=== PATIENT | female | born 2000 | race Caucasian/White ===

== ENCOUNTER 2019-01-21 20:25 | Emergency (ER) | payer OTHER ==
[2019-01-21 21:24] LABS: Absolute Lymphocytes (CBC) 1.5 K/uL (0.7-4.9); Absolute Monocytes 0.4 K/uL (0.1-1.3); Absolute Neutrophil 4.2 K/uL (1.8-8.0); Basophils % 0.5 % (0-1.3); Eosinophils % 0.4 % (0-4.4); Hematocrit 34.3 % (36.0-45.0); Monocytes % 6.7 % (3.3-12.3); RBC Red Blood Cell Count 4.23 M/uL (3.86-4.86)
[2019-01-21] MEDS ORDERED: KETOROLAC 30 MG/ML INJ ONE (22:03)
[2019-01-21 22:20] LABS: BUN Blood Urea Nitrogen 19 mg/dL (7-18); Bicarbonate 27 mmol/L (21-32); Glucose Level 84 mg/dL (74-106); Sodium Level 143 mmol/L (136-145)
[2019-01-21 23:55] LABS: Urine Specific Gravity 1.015 (1.005-1.030)
[2019-01-21 23:55] LABS: Urine Blood NEGATIVE (NEG); Urine Glucose NEGATIVE (NEG); Urine Protein NEGATIVE (NEG); Urine Specific Gravity 1.015 (1.005-1.030)
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
== END 2019-01-22 00:34 | disposition home or self-care (01) ==
LOC: ER 20:25
DX: S10.93XA Contusion of unspecified part of neck, initial encounter (principal); S20.229A Contusion of unspecified back wall of thorax, initial encounter; S80.12XA Contusion of left lower leg, initial encounter; S80.11XA Contusion of right lower leg, initial encounter; V86.69XA Passenger of other special all-terrain or other off-road motor vehicle injured in nontraffic accident, initial encounter
CPT/HCPCS: 36415; 70450; 71260; 72125; 74177; 80048; 81003; 81025; 84703; 85025; 96374; 99284; Q9967

== ENCOUNTER 2022-03-06 17:47 | Emergency (ER) | payer OTHER ==
--- OUTSIDE RECORDS SUMMARY | 2022-03-06 17:50 | XMS REPORT | Continuity of Care Document ---
:2000 Author Organization [facility] t Address [address] [place] [address] Care Team Providers Name Role Phone DU Primary Care Physician Unavailable Du TRANSPORT RN Attending Clinician Payers Payer Name Policy Type Policy Number Effective Date Expiration Date S ource Problems Condition Condition Condition Status Onset Resolution Last Treating Co mments Source Name Details Category Date Date Treatment Clinician Date Low HDL Low HDL Disease Active Univers (under 40) (under 40) 7-04 it y of 00:00: [place] [id number] [facility] [place] Migraines Migraines Disease Active Uni vers 4- ity of 00:00: [place] [facility] [place] Seasonal Seasonal Disease Active Unive rs allergies allergies 02-14 ity of 00:00: [place] [facility] Anxiety Anxiety Disease Active Univers 4-09 ity of 00:00: [place] [facility] Learning Learning Disease Active Unive rs disability disability 02-14 it y of 00:00: [place] [facility] Uses Uses Disease Active Univers Depo-Prove Depo-Prove 01-06 it y of ra as ra as 00:00: [place] primary primary 00 Medical Branch control control method method Allergies, Adverse Reactions, Alerts This patient has no known allergies or adverse reactions. Social History Social Habit Start Date Stop Date Quantity Comments Source Exposure to Not sure University of SARS-CoV-2 [place] [facility] (event) Branch Tobacco use and 2022-02-20 2022-02-20 Former user Universi ty of exposure 00:00:00 00:00:00 [facility] Alcohol intake 2022-02-20 2022-02-20 Ex-drinker [facility] 00:00:00 00:00:00 (finding) [facility] Sex Assigned At [birth year] Universit y of 00:00:00 00:00:00 [facility] Smoking Status Start Date Stop Date Source Former smoker 2022-02-20 00:00:00 2022-02-20 00:00:00 Universi ty of [facility] Medications Ordered Filled Start Stop Current Ordering Indication Dosage Frequency Signature Comments Components Source Medication Medication Date Date Medication? Clinician (SIG) Name Name SERTraline Yes [id number] 100mg Take 1 Univers (ZOLOFT) 4-15 tablet by ity of 100 mg 00:00: mouth [place] tablet 00 daily. Medical Branch hydrOXYzine Yes [id number] 50mg Take 1 Univers 50 mg 4-15 tablet by ity of tablet 00:00: mouth 3 [place] 00 (three) Medical times [place] daily as needed for Anxiety. SUMAtriptan Yes [id number] Take 1 tab Univers 25 mg 4-09 po x 1 ity of tablet 00:00: dose PRN [place] 00 migraine, Medical may take Branch another dose x 1 two hours later if needed; max 2 doses/24 hours docusate Yes [id number] 240mg Take 1 Univers calcium 240 2-07 102 capsule by it y of mg capsule 00:00: mouth once [place] 00 daily as Medical needed for Branch Constipati on. ferrous Yes [id number] 325mg Take 1 Univers sulfate 325 2-07 102 tablet by ity of mg (65 mg 00:00: mouth 2 [place] iron) 00 (two) Medical tablet times [place] daily. Immunizations Ordered Filled Immunization Date Status Comments Sourc e Immunization Name Name TDAP 2020-10-09 Completed University of 00:00:00 [facility] Influenza Virus 2020-08-12 Completed Universit y of Vaccine Quad .5 mL 00:00:00 [facility] IM 6+ MO Branch Influenza Virus 2019-09-13 Completed Universit y of Vaccine [place] .5 mL 00:00:00 [facility] 6+ [place] Branch Vital Signs Vital Name Observation Time Observation Value Comments Source Systolic blood 2022-02-20 19:03:00 118 mm[Hg] Univer sity of pressure [facility] Diastolic blood 2022-02-20 19:03:00 74 mm[Hg] Unive rsity of pressure [facility] Heart rate 2022-02-20 19:03:00 66 /min Universi [facility] Respiratory rate 2022-02-20 19:03:00 18 /min Univ ersity of [facility] Body height 2022-02-20 19:03:00 152.4 cm [facility] Body weight 2022-02-20 19:03:00 68.765 kg [facility] BMI 2022-02-20 19:03:00 29.61 kg/m2 [facility] Oxygen saturation in 2022-02-20 19:03:00 100 /min [facility] Arterial blood by [facility] Pulse oximetry Branch Procedures This patient has no known procedures. Encounters Start End Encounter Admission Attending Care Care Encounter Source Date/Time Date/Time Type Type Clinicians Facility Department ID 2022-02-20 2022-02-20 Office Du [facility] [id number] Univers 14:00:00 14:42:25 Visit [id number] [id number] Mansi CALDERA [id number] Ak dical NAL 044 Branch BUILDING Results This patient has no known results.
[2022-03-06] MEDS ORDERED: NA CHLORIDE 0.9% 1,000 ML ONE (18:26)
[2022-03-06] MEDS ORDERED: ONDANSETRON 4 MG/2 ML VIAL ONE (18:26)
[2022-03-06 18:27] LABS: Urine Blood Negative (Negative); Urine Glucose Negative (Negative); Urine Protein Negative (Negative); Urine Specific Gravity >=1.030 (1.005-1.030)
[2022-03-06 18:51] LABS: Absolute Lymphocytes (CBC) 1.8 K/uL (0.7-4.9); Hematocrit 41.3 % (36.0-45.0); Lymphocytes % 39.5 % (15.3-44.8); MPV 8.2 fL (7.6-11.3); RBC Red Blood Cell Count 4.69 M/uL (3.86-4.86)
[2022-03-06 19:03] LABS: Albumin 4.4 g/dL (3.4-5.0); Potassium 3.5 mmol/L (3.5-5.1); Protein, Total 7.5 g/dL (6.4-8.2)
[2022-03-06 19:13] LABS: Urine Bacteria 20-50 /HPF (<20); Urine Mucus LIGHT /HPF (NONE SEEN); Urine RBC <5 /HPF (NONE SEEN)
--- NOTE | 2022-03-06 20:02 | RAD REPORT ---
EXAM DESCRIPTION: CT - Abdomen Pelvis W Contrast - 03/06/2022 7:42 pm CLINICAL HISTORY: Abdominal pain COMPARISON: 2019 TECHNIQUE: Computed axial tomography of the abdomen pelvis was obtained. 100 cc Isovue-300 was admin istered intravenously. Oral contrast was not requested which limits evaluation of bowel and appendix. All CT scans are performed using dose optimization technique as appropriate and may include automated exposure control or mA/KV adjustment according to patient size. FINDINGS: Liver, spleen, pancreas, adrenals and right kidney are unremarkable. Partial duplication left kidney. There is no evidence of diverticulitis. No adnexal mass Normal appendix IMPRESSION: No acute abnormality is displayed.
--- NOTE | 2022-03-06 20:29 | EDPHYS ---
Physician Documentation [facility] Name: Lucy Charles Age: 21 yrs Sex: Female : 2000 Arrival Date: 03/06/2022 Time: 17:48 Bed 9 Private MD: ED Physician Steven Georges HPI: 03/06 18:15 This 21 yrs old Female presents to ER via Ambulatory with complaints of Constipation. cp 18:15 The patient presents with abdominal pain constipation. cp 18:15 Onset: The symptoms/episode began/occurred for months. Associated signs and symptoms: cp Pertinent negatives: anorexia, diarrhea, dysuria, fever. Patient reports constipation for months with small and hard BM yesterday. Historical: - Allergies: 17:56 No Known Allergies; iw - Home Meds: 17:56 None [Active]; iw - PMHx: 17:56 None; iw - PSHx: 17:56 None; iw - Immunization history:: Client reports having NOT received the Covid vaccine. - Social history:: Smoking status: Reported history of juuling and/or vaping. ROS: 18:20 Constitutional: Negative for body aches, chills, fever, poor PO intake. cp 18:20 Eyes: Negative for injury, pain, redness, and discharge. cp 18:20 ENT: Negative for drainage from ear(s), ear pain, sore throat, difficulty swallowing, difficulty handling secretions. 18:20 Cardiovascular: Negative for chest pain, edema, palpitations. 18:20 Respiratory: Negative for cough, shortness of breath, wheezing. 18:20 Abdomen/GI: Positive for abdominal pain, constipation, Negative for vomiting, diarrhea, anorexia, black/tarry stool, rectal bleeding. 18:20 Back: Negative for radiated pain. 18:20 : Negative for urinary symptoms. 18:20 Neuro: Negative for altered mental status, headache, weakness. 18:20 All other systems are negative. Exam: 18:25 Constitutional: The patient appears in no acute distress, alert, awake, non-toxic, well cp developed, well nourished. 18:25 Head/Face: Normocephalic, atraumatic. cp 18:25 Eyes: Periorbital structures: appear normal, Conjunctiva: normal, no exudate, no injection, Sclera: no appreciated abnormality, Lids and lashes: appear normal, bilaterally. 18:25 ENT: External ear(s): are unremarkable, Nose: is normal, Mouth: Lips: moist, Oral mucosa: moist, Posterior pharynx: Airway: no evidence of obstruction, patent. 18:25 Chest/axilla: Inspection: normal. 18:25 Cardiovascular: Rate: normal, Rhythm: regular. 18:25 Respiratory: the patient does not display signs of respiratory distress, Respirations: normal, no use of accessory muscles, no retractions, labored breathing, is not present, Breath sounds: are clear throughout, no decreased breath sounds, no stridor, no wheezing. 18:25 Abdomen/GI: Inspection: abdomen appears normal, Bowel sounds: active, all quadrants, Palpation: soft, in all quadrants, mild abdominal tenderness, in the right lower quadrant and left lower quadrant, rebound tenderness, is not appreciated, involuntary guarding, is not appreciated. 18:25 Back: CVA tenderness, is absent. Vital Signs: 18:50 BP 111 / 76; Pulse 52; Resp 16; Temp 98.0; Pulse Ox 99% on R/A; iw 19:15 BP 115 / 68; Pulse 62; Resp 18 S; Pulse Ox 100% on R/A; Pain 4/10; ag7 MDM: 18:17 Patient medically screened. cp 19:00 Differential diagnosis: appendicitis, bowel obstruction, cholecystitis, Cholelithiasis, cp diverticulitis, non-specific abd pain, pancreatitis, Pyelonephritis, urinary tract infection. 20:28 Data reviewed: vital signs, nurses notes, lab test result(s), radiologic studies, CT cp scan. 20:28 Counseling: I had a detailed discussion with the patient and/or guardian regarding: the cp historical points, exam findings, and any diagnostic results supporting the discharge/admit diagnosis, lab results, radiology results, to return to the emergency department if symptoms worsen or persist or if there are any questions or concerns that arise at home. Special discussion: Based on the patient's Hx, exam, and Dx evaluation, there is no indication for emergent surgery or inpatient Tx. It is understood by the patient/guardian that if the Sx's persist or worsen they need to return immediately for re-evaluation. 03/06 18:03 Order name: CBC with Diff; Complete Time: 19:19 cp 03/06 19:20 Interpretation: Normal except: MCV 87.9; MCH 29.9. cp 03/06 18:03 Order name: CMP; Complete Time: 19:19 cp 03/06 20:14 Interpretation: Normal except: CL 112; GFR 85; AST 11. cp 03/06 18:03 Order name: Lipase; Complete Time: 19:19 cp 03/06 18:03 Order name: Urine Microscopic Only; Complete Time: 19:19 cp 03/06 20:14 Interpretation: Normal except: UBACT 20-50; SQEPI 20-50. cp 03/06 18:27 Order name: Urine Dipstick-Ancillary; Complete Time: 19:19 EDMS 03/06 18:03 Order name: IV Saline Lock; Complete Time: 18:36 cp 03/06 18:03 Order name: Labs collected and sent; Complete Time: 18:36 cp 03/06 18:03 Order name: Urine Dipstick-Ancillary (obtain specimen); Complete Time: 18:27 cp 03/06 18:03 Order name: Urine Test (obtain specimen); Complete Time: 18:27 cp 03/06 18:03 Order name: CT Abd/Pelvis - IV Contrast Only; Complete Time: 20:13 cp 03/06 20:13 Interpretation: Report reviewed. 03/06 18:34 Order name: Urine --Ancillary (enter results); Complete Time: 19:19 eb Administered Medications: 18:36 Drug: NS 0.9% 1000 ml Route: IV; Rate: 1 bolus; Site: right antecubital; jl7 19:30 Follow up: IV Status: Completed infusion; IV Intake: 1000ml ag7 18:37 Drug: Zofran (Ondansetron) 4 mg Route: IVP; Site: right antecubital; jl7 19:15 Follow up: Response: No adverse reaction; Nausea is decreased ag7 Disposition: 03/07 15:44 Co-signature as Attending Physician, Steven Georges MD I agree with the assessment and kdr plan of care. Disposition Summary: 03/06/22 20:28 Discharge Ordered Location: Home cp Problem: new cp Symptoms: are unchanged cp Condition: Stable cp Diagnosis - Constipation cp Followup: cp - With: Private Physician - When: 2 - 3 days - Reason: Worsening of condition Discharge Instructions: - Discharge Summary Sheet cp - Constipation, Adult cp Forms: - Medication Reconciliation Form cp - Thank You Letter cp - Antibiotic Education cp - Prescription Opioid Use cp Prescriptions: - magnesium citrate - take 1 bottle by ORAL route as directed; 1 bottle; Refills: 0, Product cp Selection Permitted Signatures: Dispatcher [employer] Steven Jameson MD MD kdr Adela Cruz RN RN iw Nicolás Cobos PA PA cp Rikki Peacock RN RN jl7 Jane Dennis RN ag7 Corrections: (The following items were deleted from the chart) 03/06 20:14 19:20 Normal except: CL 112; GFR 85. cp cp 20:29 20:28 Abdominal pain, Generalized cp cp
--- NOTE | 2022-03-06 20:29 | ER ---
Nurse's Notes [facility] Name: Lucy Charles Age: 21 yrs Sex: Female : 2000 Arrival Date: 03/06/2022 Time: 17:48 Bed 9 Private MD: Diagnosis: Constipation Presentation: 03/06 17:54 Chief complaint: Patient states: thinks she is impacted , had two enemas today and iw laxative gummies, last BM was a "while ago". Coronavirus screen: At this time, the client does not indicate any symptoms associated with coronavirus-19. Ebola Screen: Patient negative for fever greater than or equal to 101.5 degrees Fahrenheit, and additional compatible Ebola Virus Disease symptoms Patient denies exposure to infectious person. Patient denies travel to an Ebola-affected area in the 21 days before illness onset. No symptoms or risks identified at this time. Initial Sepsis Screen: Does the patient meet any 2 criteria? No. Patient's initial sepsis screen is negative. Does the patient have a suspected source of infection? No. Patient's initial sepsis screen is negative. Risk Assessment: Do you want to hurt yourself or someone else? Patient reports no desire to harm self or others. Onset of symptoms was March 06, 2022. 17:54 Method Of Arrival: Ambulatory iw 17:54 Acuity: KERRI 3 iw Historical: - Allergies: 17:56 No Known Allergies; iw - Home Meds: 17:56 None [Active]; iw - PMHx: 17:56 None; iw - PSHx: 17:56 None; iw - Immunization history:: Client reports having NOT received the Covid vaccine. - Social history:: Smoking status: Reported history of juuling and/or vaping. Screenin:38 Abuse screen: Denies threats or abuse. Denies injuries from another. Nutritional iw screening: No deficits noted. Tuberculosis screening: No symptoms or risk factors identified. Fall Risk IV access (20 points). Assessment: 18:38 General: Appears in no apparent distress. Behavior is calm, cooperative. Pain: iw Complains of pain in abdomen. Neuro: Level of Consciousness is awake, alert, obeys commands, Oriented to person, place, time, situation, Moves all extremities. Full function. Cardiovascular: Patient's skin is warm and dry. Respiratory: Respiratory effort is even, unlabored, Respiratory pattern is regular, symmetrical. GI: Reports constipation. Derm: Skin is intact, is healthy with good turgor. 19:14 Reassessment: Patient and/or family updated on plan of care and expected duration. Pain ag7 level reassessed. Patient is alert, oriented x 3, equal unlabored respirations, skin warm/dry/pink. Shift report received, Patient verbalize c/o of abdominal pain 4/10, constant, and nausea, bowel sounds hypoactive ascending, transverse, and descending. 20:15 Reassessment: No changes from previously documented assessment. Patient and/or family ag7 updated on plan of care and expected duration. Pain level reassessed. Patient is alert, oriented x 3, equal unlabored respirations, skin warm/dry/pink. Vital Signs: 18:50 BP 111 / 76; Pulse 52; Resp 16; Temp 98.0; Pulse Ox 99% on R/A; iw 19:15 BP 115 / 68; Pulse 62; Resp 18 S; Pulse Ox 100% on R/A; Pain 4/10; ag7 ED Course: 17:48 Patient arrived in ED. am2 17:49 Nicolás Cobos PA is PHCP. cp 17:49 Steven Georges MD is Attending Physician. cp 17:56 Triage completed. iw 17:56 Arm band placed on. iw 18:20 Inserted saline lock: 22 gauge in right antecubital area, using aseptic technique. iw Blood collected. inserted by JOHN Brantd. 18:38 Adela Cruz RN is Primary Nurse. iw 18:50 No provider procedures requiring assistance completed. iw 19:17 Patient has correct armband on for positive identification. Call light in reach. Adult ag7 w/ patient. 19:44 CT Abd/Pelvis - IV Contrast Only In Process Unspecified. EDMS 21:11 IV discontinued, intact, bleeding controlled, No redness/swelling at site. Pressure ag7 dressing applied. Administered Medications: 18:36 Drug: NS 0.9% 1000 ml Route: IV; Rate: 1 bolus; Site: right antecubital; jl7 19:30 Follow up: IV Status: Completed infusion; IV Intake: 1000ml ag7 18:37 Drug: Zofran (Ondansetron) 4 mg Route: IVP; Site: right antecubital; jl7 19:15 Follow up: Response: No adverse reaction; Nausea is decreased ag7 Intake: 19:30 IV: 1000ml; Total: 1000ml. ag7 Outcome: 20:28 Discharge ordered by . cp 21:11 Discharged to home ambulatory. ag7 21:11 Condition: stable 21:11 Discharge instructions given to patient, Instructed on discharge instructions, follow up and referral plans. medication usage, Demonstrated understanding of instructions, follow-up care, medications, Prescriptions given X 1. 21:13 Patient left the ED. ag7 Signatures: Dispatcher [employer] EDAdela Arzola, RN RN iw Nicolás Cobos, Rikki Fish cp, RN RN jl7 Jessie Quijano Angela RN RN ag7
[2022-03-06 23:32] VITALS: TEMP 98
[2022-03-06 23:35] VITALS: BP 115/68; O2SAT 100
== END 2022-03-06 21:13 | disposition home or self-care (01) ==
LOC: ER 17:47
DX: K59.00 Constipation, unspecified (principal)
CPT/HCPCS: 96361; 85025; 36415; 81025; 83690; 80053; 74177; 96374; 99284; Q9967; J7030; J2405; 81003; 81015

== ENCOUNTER 2022-06-06 01:54 | Emergency (ER) | payer OTHER ==
[2022-06-06] MEDS ORDERED: ACETAMINOPHEN 500 MG TAB ONE (03:21)
[2022-06-06] MEDS ORDERED: AMOXICILLIN TRIHYDR 250 MG CAP ONE (04:45)
--- NOTE | 2022-06-06 04:48 | EDPHYS ---
Physician Documentation [facility] Name: Lucy Charles Age: 21 yrs Sex: Female : 2000 Arrival Date: 06/06/2022 Time: 02:00 Bed 19 Private MD: ED Physician Moustapha Ponce HPI: 06/06 02:35 This 21 yrs old Female presents to ER via Ambulatory with complaints of Sore Throat. mh7 02:35 The patient presents with sore throat. The patient describes throat pain as constant. mh7 Onset: The symptoms/episode began/occurred 2 day(s) ago. Severity of symptoms: At their worst the symptoms were moderate, yesterday, in the emergency department the symptoms have improved, moderately. Modifying factors: The symptoms are alleviated by nothing, the symptoms are aggravated by nothing, Patient's oral intake status: good The patient has had contact with sick son. Associated signs and symptoms: Pertinent negatives chest pain, chills, cough, diarrhea, dysphagia, earache, fever, flu-like symptoms, headache, nausea, rhinorrhea, shortness of breath, vomiting. Her son recently tested positive for strep.. 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 - Social history:: Smoking status: Reported history of juuling and/or vaping. ROS: 02:35 Constitutional: Negative for fever, chills, and weight loss, Eyes: Negative for injury, mh7 pain, redness, and discharge, Neck: Negative for injury, pain, and swelling, Cardiovascular: Negative for chest pain, palpitations, and edema, Respiratory: Negative for shortness of breath, cough, wheezing, and pleuritic chest pain, Abdomen/GI: Negative for abdominal pain, nausea, vomiting, diarrhea, and constipation, Back: Negative for injury and pain, : Negative for injury, bleeding, discharge, and swelling, MS/Extremity: Negative for injury and deformity, Skin: Negative for injury, rash, and discoloration, Neuro: Negative for headache, weakness, numbness, tingling, and seizure, Psych: Negative for depression, anxiety, suicide ideation, homicidal ideation, and hallucinations, Allergy/Immunology: Negative for hives, rash, and allergies, Endocrine: Negative for neck swelling, polydipsia, polyuria, polyphagia, and marked weight changes, Hematologic/Lymphatic: Negative for swollen nodes, abnormal bleeding, and unusual bruising. Exam: 02:35 Constitutional: This is a well developed, well nourished patient who is awake, alert, mh7 and in no acute distress. Head/Face: Normocephalic, atraumatic. Eyes: Pupils equal round and reactive to light, extra-ocular motions intact. Lids and lashes normal. Conjunctiva and sclera are non-icteric and not injected. Cornea within normal limits. Periorbital areas with no swelling, redness, or edema. Neck: Trachea midline, no thyromegaly or masses palpated, and no cervical lymphadenopathy. Supple, full range of motion without nuchal rigidity, or vertebral point tenderness. No Meningismus. Chest/axilla: Normal chest wall appearance and motion. Nontender with no deformity. No lesions are appreciated. Cardiovascular: Regular rate and rhythm with a normal S1 and S2. No gallops, murmurs, or rubs. Normal PMI, no JVD. No pulse deficits. Respiratory: Lungs have equal breath sounds bilaterally, clear to auscultation and percussion. No rales, rhonchi or wheezes noted. No increased work of breathing, no retractions or nasal flaring. Abdomen/GI: Soft, non-tender, with normal bowel sounds. No distension or tympany. No guarding or rebound. No evidence of tenderness throughout. Back: No spinal tenderness. No costovertebral tenderness. Full range of motion. 02:35 Skin: Warm, dry with normal turgor. Normal color with no rashes, no lesions, and no evidence of cellulitis. MS/ Extremity: Pulses equal, no cyanosis. Neurovascular intact. Full, normal range of motion. Neuro: Awake and alert, GCS 15, oriented to person, place, time, and situation. Cranial nerves II-XII grossly intact. Motor strength 5/5 in all extremities. Sensory grossly intact. Cerebellar exam normal. Normal gait. Psych: Awake, alert, with orientation to person, place and time. Behavior, mood, and affect are within normal limits. 02:35 ENT: External ear(s): are unremarkable, Ear canal(s): are normal, clear, TM's: are normal, Nose: is normal, Mouth: is normal, Posterior pharynx: Airway: normal, Tonsils: bilaterally enlarged, with erythema, Uvula: normal, midline, swelling, is not appreciated, erythema, that is moderate, exudate, is not appreciated, peritonsillar mass, is not appreciated, pooling of secretions, is not appreciated, Dental exam: normal, Voice: is normal. Vital Signs: 02:19 BP 113 / 73; Pulse 63; Resp 18; Temp 98.3; Pulse Ox 99% on R/A; Weight 63.5 kg; Height tw5 5 ft. 0 in. (152.40 cm); Pain 5/10; 05:02 BP 106 / 67; Pulse 62; Resp 16; Pulse Ox 100% on R/A; jb4 02:19 Body Mass Index 27.34 (63.50 kg, 152.40 cm) tw5 MDM: 04:41 Differential diagnosis: influenza, pharyngitis, tonsillitis, viral syndrome. Data [facility] reviewed: vital signs, nurses notes, lab test result(s), Flu: negative strep negative, COVID negative. Data interpreted: Pulse oximetry: on room air is 99 %. Interpretation: normal. Counseling: I had a detailed discussion with the patient and/or guardian regarding: the historical points, exam findings, and any diagnostic results supporting the discharge/admit diagnosis, lab results, the need for outpatient follow up, to return to the emergency department if symptoms worsen or persist or if there are any questions or concerns that arise at home. Response to treatment: the patient's symptoms have markedly improved after treatment. 04:48 Patient medically screened. [facility] 06/06 02:54 Order name: Rapid Strep; Complete Time: 04:02 [facility] 06/06 02:54 Order name: Influenza Screen (a \\T\\ B); Complete Time: 04:02 [facility] 06/06 02:54 Order name: COVID-19 SARS RT PCR (Document "Date of Onset" if Symptomatic); Complete [facility] Time: 04:18 06/06 03:56 Order name: Throat Culture EDMS Administered Medications: 03:15 Drug: Tylenol 1000 mg Route: PO; jb4 04:42 Follow up: Response: No adverse reaction; Marked relief of symptoms jb4 04:42 Drug: Amoxicillin 500 mg Route: PO; jb4 Disposition Summary: 06/06/22 04:48 Discharge Ordered Location: Home [facility] Problem: new [facility] Symptoms: have improved [facility] Condition: Stable [facility] Diagnosis - Acute tonsillitis, unspecified [facility] Followup: [facility] - With: Private Physician - When: 1 - 2 days - Reason: Worsening of condition, Recheck today's complaints, Continuance of care, Re-evaluation by your physician Followup: [facility] - With: Clare Coates MD - When: 1 - 2 days - Reason: Worsening of condition, Recheck today's complaints Discharge Instructions: - Discharge Summary Sheet [facility] - Tonsillitis, [id number] [facility] Forms: - Medication Reconciliation Form [facility] - Thank You Letter [facility] - Antibiotic Education [facility] - Prescription Opioid Use [facility] Prescriptions: - Amoxicillin 500 mg Oral Capsule - take 1 capsule by ORAL route every 8 hours for 10 days; 30 tablet; Refills: 0, [facility] Product Selection Permitted - Ibuprofen 800 mg Oral Tablet - take 1 tablet by ORAL route every 8 hours As needed take with food; 15 tablet; [facility] Refills: 0, Product Selection Permitted Signatures: Dispatcher [employer] Brandon Christiansen RN RN jb4 Moustapha Ponce MD MD [facility] Uma Jacobs tw5
--- NOTE | 2022-06-06 04:48 | ER ---
Nurse's Notes [facility] Name: Lucy Charles Age: 21 yrs Sex: Female : 2000 Arrival Date: 06/06/2022 Time: 02:00 Bed 19 Private MD: Diagnosis: Acute tonsillitis, unspecified Presentation: 06/06 02:19 Chief complaint: Patient states: "My throat has been hurting and I feel like my throat tw5 keeps swelling. I think I have strep throat.". Coronavirus screen: Vaccine status: Patient reports being unvaccinated. Ebola Screen: Patient negative for fever greater than or equal to 101.5 degrees Fahrenheit, and additional compatible Ebola Virus Disease symptoms Patient denies exposure to infectious person. Patient denies travel to an Ebola-affected area in the 21 days before illness onset. Initial Sepsis Screen: Does the patient meet any 2 criteria? No. Patient's initial sepsis screen is negative. Does the patient have a suspected source of infection? No. Patient's initial sepsis screen is negative. Risk Assessment: Do you want to hurt yourself or someone else? Patient reports no desire to harm self or others. Onset of symptoms was June 05, 2022. 02:19 Method Of Arrival: Ambulatory tw5 02:19 Acuity: KERRI 4 tw5 Triage Assessment: 02:21 General: Appears in no apparent distress. Behavior is calm, cooperative, appropriate tw5 for age. Pain: Pain currently is 5 out of 10 on a pain scale. EENT: Throat is reddened has enlarged tonsils bilaterally with gag reflex present. 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 - Social history:: Smoking status: Reported history of juuling and/or vaping. Screenin:22 Abuse screen: Denies threats or abuse. Denies injuries from another. Nutritional tw5 screening: No deficits noted. Tuberculosis screening: No symptoms or risk factors identified. Fall Risk None identified. Assessment: 02:45 General: See triage note.. jb4 04:05 Reassessment: Patient appears in no apparent distress at this time. Patient and/or jb4 family updated on plan of care and expected duration. Pain level reassessed. Patient is alert, oriented x 3, equal unlabored respirations, skin warm/dry/pink. 05:02 Reassessment: Patient appears in no apparent distress at this time. Patient and/or jb4 family updated on plan of care and expected duration. Pain level reassessed. Patient is alert, oriented x 3, equal unlabored respirations, skin warm/dry/pink. Vital Signs: 02:19 BP 113 / 73; Pulse 63; Resp 18; Temp 98.3; Pulse Ox 99% on R/A; Weight 63.5 kg; Height tw5 5 ft. 0 in. (152.40 cm); Pain 5/10; 05:02 BP 106 / 67; Pulse 62; Resp 16; Pulse Ox 100% on R/A; jb4 02:19 Body Mass Index 27.34 (63.50 kg, 152.40 cm) tw5 ED Course: 02:00 Patient arrived in ED. ja2 02:21 Triage completed. tw5 02:21 Arm band placed on right wrist. tw5 02:33 Moustapha Ponce MD is Attending Physician. mh7 02:45 Patient has correct armband on for positive identification. jb4 02:59 Brandon Cruz, RN is Primary Nurse. jb4 04:47 Clare Coates MD is Referral Physician. mh7 05:03 No provider procedures requiring assistance completed. Patient did not have IV access jb4 during this emergency room visit. Administered Medications: 03:15 Drug: Tylenol 1000 mg Route: PO; jb4 04:42 Follow up: Response: No adverse reaction; Marked relief of symptoms jb4 04:42 Drug: Amoxicillin 500 mg Route: PO; jb4 Medication: 05:02 VIS not applicable for this client. jb4 Outcome: 04:48 Discharge ordered by . 7 05:03 Discharged to home ambulatory. jb4 05:03 Condition: stable 05:03 Discharge instructions given to patient, Instructed on discharge instructions, follow up and referral plans. medication usage, Demonstrated understanding of instructions, follow-up care, medications, Prescriptions given X 2. 05:04 Patient left the ED. jb4 Signatures: Brandon Cruz, RN RN jb4 Moustapha Ponce MD MD mh7 Valery Choi [facility] Uma Jacobs tw5
[2022-06-06 05:37] VITALS: TEMP 98.3
[2022-06-06 05:45] VITALS: BP 106/67; O2SAT 100
== END 2022-06-06 05:04 | disposition home or self-care (01) ==
LOC: ER 01:54
DX: J03.90 Acute tonsillitis, unspecified (principal); Z20.822 Contact with and (suspected) exposure to COVID-19
CPT/HCPCS: 87070; 87081; 87804 ×2; 99283; U0003

== ENCOUNTER 2022-07-18 02:27 | Emergency (ER) | payer OTHER ==
--- OUTSIDE RECORDS SUMMARY | 2022-07-18 02:29 | XMS REPORT | Continuity of Care Document ---
:2000 Author Organization [facility] t Address [address] [place] [address] Care Team Providers Name Role Phone ANNALISA SANDY Primary Care Physician Unavailable Elisa Dhaliwal PA-C Attending Clinician ELISA DHALIWAL Attending Clinician Unavailable Payers Payer Name Policy Type Policy Number Effective Date Expiration Date S ource Problems Condition Condition Condition Status Onset Resolution Last Treating Co mments Source Name Details Category Date Date Treatment Clinician Date Low HDL Low HDL Disease Active Univers (under 40) (under 40) 7-04 it y of 00:: [facility] Migraines Migraines Disease Active Uni vers 02-14 ity of 00:: [facility] [place] Seasonal Seasonal Disease Active Unive rs allergies allergies 02-14 ity of 00:: [facility] Anxiety Anxiety Disease Active Univers 4 ity of 00:: [facility] Learning Learning Disease Active Unive rs disability disability 02-14 it y of 00:: [facility] Uses Uses Disease Active Univers Depo-Prove Depo-Prove 01-06 it y of ra as ra as 00:00: [place] primary primary 00 Medical Branch control control method method Allergies, Adverse Reactions, Alerts Allergy Allergy Status Severity Reaction(s) Onset Inactive Treating Comm ents Source Name Type Date Date Clinician NO KNOWN Drug Active Univers ALLERGIE Class ity of S [facility] Social History Social Habit Start Date Stop Date Quantity Comments Source History of Passive smoker [facility] tobacco use [facility] Exposure to 2022-07-05 2022-07-[address] [facility] SARS-CoV-2 00:00:00 14:44:00 [facility] (event) [place] Tobacco use and 2022-07-15 2022-07-15 Smokeless tobacco Un iversity of exposure 00:00:00 00:00:00 non-user [facility] Alcohol intake 2022-07-15 2022-07-[address] [facility] 00:00:00 00:00:00 (finding) [facility] Sex Ass[birth year] At [birth year] Universit y of 00:00:00 00:00:00 [facility] Smoking Status Start Date Stop Date Source Never smoked tobacco [facility] Medications Ordered Filled Start Stop Current Ordering Indication Dosage Frequency Signature Comments Components Source Medication Medication Date Date Medication? Clinician (SIG) Name Name SERTraline Yes [id number] 100mg Take 1 Univers (ZOLOFT) 4-15 tablet by ity of 100 mg 00:00: mouth [place] tablet 00 daily. [facility] Branch hydrOXYzine Yes [id number] 50mg Take 1 Univers 50 mg 4-15 tablet by ity of tablet 00:00: mouth 3 00 (three) Medical times [place] daily as needed for Anxiety. SERTraline Yes [id number] 100mg Take 1 Univers (ZOLOFT) 4-15 tablet by ity of 100 mg 00:00: mouth [place] tablet 00 daily. [facility] Branch hydrOXYzine Yes [id number] 50mg Take 1 Univers 50 mg 4-15 tablet by ity of tablet 00:00: mouth 3 00 (three) Medical times [place] daily as needed for Anxiety. SUMAtriptan Yes [id number] Take 1 tab Univers 25 mg 4-09 po x 1 ity of tablet 00:00: dose PRN 00 migraine, Medical may take Branch another dose x 1 two hours later if needed; max 2 doses/24 hours SUMAtriptan Yes [id number] Take 1 tab Univers 25 mg 4-09 po x 1 ity of tablet 00:00: dose PRN 00 migraine, Medical may take Branch another dose x 1 two hours later if needed; max 2 doses/24 hours docusate Yes [id number] 240mg Take 1 Univers calcium 240 2-07 102 capsule by it y of mg capsule 00:00: mouth once [place] 00 daily as Medical needed for Branch Constipati on. ferrous Yes [id number] 325mg Take 1 Univers sulfate 325 2-07 102 tablet by ity of mg (65 mg 00:00: mouth 2 [place] iron) 00 (two) Medical tablet times Branch daily. docusate Yes [id number] 240mg Take 1 Univers calcium 240 2-07 102 capsule by it y of mg capsule 00:00: mouth once [place] 00 daily as Medical needed for Branch Constipati on. ferrous Yes [id number] 325mg Take 1 Univers sulfate 325 2-07 102 tablet by ity of mg (65 mg 00:00: mouth 2 [place] iron) 00 (two) Medical tablet times Branch daily. Immunizations Ordered Filled Immunization Date Status Comments [facility] e Immunization Name Name TDAP 2020-10-[address] [facility] 00:00:00 [facility] TDAP 2020-10-09 [facility] 00:00:00 [facility] Influenza Virus 2020-08-12 Completed Universit y of Vaccine [place] .5 mL 00:00:00 [facility] 6+ MO Branch Influenza Virus 2020-08-12 Completed Universit y of Vaccine [place] .5 mL 00:00:00 [facility] 6+ MO Branch Influenza Virus 2019-09-13 Completed Universit y of Vaccine [place] .5 mL 00:00:00 [facility] 6+ MO Branch Influenza Virus 2019-09-13 Completed Universit y of Vaccine [place] .5 mL 00:00:00 [facility] 6+ MO Branch Vital Signs Vital Name Observation Time Observation Value Comments Source Systolic blood 2022-07-15 20:00:00 133 mm[Hg] Univer sity of pressure [facility] Diastolic blood 2022-07-15 20:00:00 88 mm[Hg] Unive rsity of pressure [facility] Heart rate 2022-07-15 20:00:00 62 /min Universi ty of [facility] Body temperature 2022-07-15 20:00:00 [facility].22 [facility] height 2022-07-15 20:00:00 152.4 cm [facility] Body weight 2022-07-15 20:00:00 71.033 kg [facility] BMI 2022-07-15 20:00:00 30.58 kg/m2 [facility] Procedures Procedure Date / Time Performed Performing Clinician Sourc e POCT TEST 2022-07-15 00:00:00 Elisa Dhaliwal [facility] Encounters Start End Encounter Admission Attending Care Care Encounter Source Date/Time Date/Time Type Type Clinicians Facility Department ID 2022-07-15 2022-07-15 Office Madhuri [facility] [id number] [facility] 15:00:00 15:34:26 Visit Elisa RUELAS [id number] i ty [facility] [id number] Mansi schwab PROFESSIO [id number] Me dical NAL [address] [place] [address] 2022-07-15 2022-07-15 Outpatient R MADHURI [facility] [id number] [facility] 15:00:00 15:34:26 ELISA [facility] Results Test Description Test Time Test Comments Results Result Comments Source POCT TEST 2022-07-15 20:04:00 Test Item Value Reference Range Interpretation Comme nts POCT PREG (test code = 1605) Negative On board controls acceptable with C Line (test code = 3574) Yes POCT PREG LOT # (test code = 3575) POCT PREG TEST DATE (test code = 3576) [id number] 20:04:00 Test Item Value Reference Range Interpretation Comments POCT PREG (test code = 1605) Negative On board controls acceptable with C Yes Line (test code = 3574) POCT PREG LOT # (test code = 3575) POCT PREG TEST DATE (test code = 3576) [facility]
--- NOTE | 2022-07-18 03:57 | EDPHYS ---
Physician Documentation [facility] Name: Lucy Charles Age: 21 yrs Sex: Female : 2000 Arrival Date: 07/18/2022 Time: 02:31 Bed 4 Private MD: ED Physician Prabhjot Rebolledo HPI: 07/18 03:11 This 21 yrs old Female presents to ER via Ambulatory with complaints of Hip Pain. rn 03:11 The patient or guardian reports pain. that occurred at an unknown site, sustained from rn unknown reason, The patient is able to self ambulate. The patient is able to bear their full body weight. The complaints affect the right hip. Onset: The symptoms/episode began/occurred at an unknown time. Modifying factors: The symptoms are alleviated by nothing, the symptoms are aggravated by nothing. Associated signs and symptoms: Loss of consciousness: the patient experienced no loss of consciousness, Pertinent positives: None. Pertinent negatives: abdominal pain, dysuria, fever, incontinence. Severity of symptoms: At their worst the symptoms were mild, in the emergency department the symptoms have improved. The patient has experienced similar episodes in the past. The patient has not recently seen a physician. Pt reports her boss made her come in because she has intermittent episodes where her right hip "goes in and out", "pops it back in" herself. She states needs clearance for work. Currently not complaining of any pain or discomfort. No weakness. . [employer]: 03:03 LMP N/A - Depo-provera bb Historical: - Allergies: 03:03 No Known Allergies; bb - Home Meds: 03:03 None [Active]; bb - PMHx: 03:03 None; bb - PSHx: 03:03 None; bb - Immunization history:: Client reports having NOT received the Covid vaccine. - Social history:: Smoking status: Reported history of juuling and/or vaping. - Family history:: not pertinent. - Hospitalizations: : No recent hospitalization is reported. ROS: 03:11 Constitutional: Negative for fever, chills, and weight loss, Eyes: Negative for injury, rn pain, redness, and discharge, Neck: Negative for injury, pain, and swelling, Cardiovascular: Negative for chest pain, palpitations, and edema, Respiratory: Negative for shortness of breath, cough, wheezing, and pleuritic chest pain, Abdomen/GI: Negative for abdominal pain, nausea, vomiting, diarrhea, and constipation, Back: Negative for injury and pain, : Negative for injury, bleeding, discharge, and swelling, MS/Extremity: Negative for injury and deformity, Skin: Negative for injury, rash, and discoloration, Neuro: Negative for headache, weakness, numbness, tingling, and seizure. Exam: 03:11 Constitutional: This is a well developed, well nourished patient who is awake, alert, rn and in no acute distress. Ambulatory to room without difficulty. Abdomen/GI: Soft, non-tender Back: No spinal tenderness. No costovertebral tenderness. Full range of motion. Skin: Warm, dry with normal turgor. Normal color with no rashes, no lesions, and no evidence of cellulitis. MS/ Extremity: Pulses equal, no cyanosis. Neurovascular intact. Full, normal range of motion. Equal circumference. Neuro: Awake and alert, GCS 15, oriented to person, place, time, and situation. Cranial nerves II-XII grossly intact. Motor strength 5/5 in all extremities. Sensory grossly intact. Cerebellar exam normal. Normal gait. Vital Signs: 03:01 BP 99 / 70; Pulse 73; Resp 16 S; Temp 98.8(O); Pulse Ox 100% on R/A; Weight 68.49 kg bb (R); Height 5 ft. 0 in. (152.40 cm) (R); Pain 0/10; 03:45 BP 105 / 80; Pulse 72; Resp 16; Pulse Ox 100% on R/A; ll3 03:01 Body Mass Index 29.49 (68.49 kg, 152.40 cm) bb MDM: 02:32 Patient medically screened. rn 03:56 Differential diagnosis: bursitis, arthritis, strain. Data reviewed: vital signs, nurses rn notes, radiologic studies, plain films, and as a result, I will discharge patient. Counseling: I had a detailed discussion with the patient and/or guardian regarding: the historical points, exam findings, and any diagnostic results supporting the discharge/admit diagnosis, radiology results, the need for outpatient follow up, to return to the emergency department if symptoms worsen or persist or if there are any questions or concerns that arise at home. Special discussion: I discussed with the patient/guardian in detail that at this point there is no indication for admission to the hospital. It is understood, however, that if the symptoms persist or worsen the patient needs to return immediately for re-evaluation. 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
--- NOTE | 2022-07-18 03:57 | ER ---
Nurse's Notes [facility] Name: Lucy Charles Age: 21 yrs Sex: Female : 2000 Arrival Date: 07/18/2022 Time: 02:31 Bed 4 Private MD: Diagnosis: Pain in right hip Presentation: 07/18 03:01 Chief complaint: Patient states: she is having right hip pain and was at work her boss bb told her to come and get it checked out currently the pain is 0/10 pt states "it pops in and out" and she has had bilateral hip pain since she was a little child. Coronavirus screen: At this time, the client does not indicate any symptoms associated with coronavirus-19. Ebola Screen: No symptoms or risks identified at this time. Initial Sepsis Screen: Does the patient meet any 2 criteria? No. Patient's initial sepsis screen is negative. Does the patient have a suspected source of infection? No. Patient's initial sepsis screen is negative. Risk Assessment: Do you want to hurt yourself or someone else? Patient reports no desire to harm self or others. Onset of symptoms is unknown. 03:01 Method Of Arrival: Ambulatory bb 03:01 Acuity: KERRI 4 bb LONG TERM: 03:03 LMP N/A - Depo-provera bb Historical: - Allergies: 03:03 No Known Allergies; bb - Home Meds: 03:03 None [Active]; bb - PMHx: 03:03 None; bb - PSHx: 03:03 None; bb - Immunization history:: Client reports having NOT received the Covid vaccine. - Social history:: Smoking status: Reported history of juuling and/or vaping. - Family history:: not pertinent. - Hospitalizations: : No recent hospitalization is reported. Screenin:04 Abuse screen: Denies threats or abuse. Denies injuries from another. Nutritional ll3 screening: No deficits noted. Tuberculosis screening: No symptoms or risk factors identified. Fall Risk None identified. Assessment: 03:15 General: Appears uncomfortable, Behavior is calm, cooperative. Pain: Complains of pain ll3 in right hip Pain currently is 2 out of 10 on a pain scale. Pain began 1 day ago. Is continuous. Neuro: Level of Consciousness is awake, alert, obeys commands, Oriented to person, place, time, situation. Respiratory: Respiratory effort is even, unlabored, Respiratory pattern is regular, symmetrical. Derm: Skin is pink, warm \\T\\ dry. Musculoskeletal: Circulation, motion, and sensation intact. Reports pain in right hip. Vital Signs: 03:01 BP 99 / 70; Pulse 73; Resp 16 S; Temp 98.8(O); Pulse Ox 100% on R/A; Weight 68.49 kg bb (R); Height 5 ft. 0 in. (152.40 cm) (R); Pain 0/10; 03:45 BP 105 / 80; Pulse 72; Resp 16; Pulse Ox 100% on R/A; ll3 03:01 Body Mass Index 29.49 (68.49 kg, 152.40 cm) ED Course: 02:31 Patient arrived in ED. ja2 02:32 Prabhjot Rebolledo MD is Attending Physician. rn 02:57 Willian Gibbs RN is Primary Nurse. ke1 03:03 Triage completed. bb 03:03 Arm band placed on Patient placed in an exam room, on a stretcher, on pulse oximetry. bb 03:39 XRAY Hip RIGHT 2 view In Process Unspecified. EDMS 04:04 Patient has correct armband on for positive identification. Bed in low position. Call ll3 light in reach. Side rails up X 1. 04:04 No provider procedures requiring assistance completed. Patient did not have IV access ll3 during this emergency room visit. Administered Medications: No medications were administered Medication: 04:05 VIS not applicable for this client. ll3 Outcome: 03:56 Discharge ordered by . rn 04:04 Discharged to home ambulatory, with family. ll3 04:04 Condition: stable 04:04 Discharge instructions given to patient, family, Instructed on discharge instructions, follow up and referral plans. Demonstrated understanding of instructions, follow-up care. 04:05 Patient left the ED. ll3 Signatures: Dispatcher [employer] EDMS Naomi Baldwin RN RN bb Nieto, Roman, MD MD rn Alexander, Jessica ja2 Loubet, Lynsea, RN RN ll3 Willian Gibbs RN RN ke1
[2022-07-18 08:49] VITALS: TEMP 98.8; O2SAT 100
[2022-07-18 08:51] VITALS: BP 105/80
--- NOTE | 2022-07-22 10:31 | RAD REPORT ---
EXAM DESCRIPTION: RAD - Hip Right 2 View - 07/18/2022 3:37 am CLINICAL HISTORY: Pain COMPARISON: None FINDINGS: No right hip fracture or dislocation. No focal degenerative changes. IMPRESSION: No right hip fracture dislocation.
== END 2022-07-18 04:05 | disposition home or self-care (01) ==
LOC: ER 02:27
DX: M25.551 Pain in right hip (principal)
CPT/HCPCS: 99283

== ENCOUNTER 2022-12-23 07:20 | Emergency (ER) | payer OTHER ==
--- OUTSIDE RECORDS SUMMARY | 2022-12-23 07:26 | XMS REPORT | Continuity of Care Document ---
:2000 Author Organization [facility] t Address [address] [place] [address] Care Team Providers Name Role Phone Yazmin Field Primary Care Physician ELISA BANGURA Attending Clinician Unavailable Hunter Blankenship MD Attending Clinician [facility], [facility] Attending Clinician Unavailable Elisa Bangura PA-C Attending Clinician DUANE ANAYA Attending Clinician Unavailable Duane Toney Attending Clinician HUNTER BLANKENSHIP Attending Clinician Unavailable Doctor Unassigned, [place] Attending Clinician Unavailable YAZMIN NGO Attending Clinician Unavailable Yazmin Field Attending Clinician 2, [facility] Attending Clinician Unavailable OSCAR SALINAS Attending Clinician Unavailable ADRIANA SANDY Attending Clinician Unavailable ADRIANA SANDY Attending Clinician Unavailable Sekou Mcmullen MD Attending Clinician KENN GOODRICH Attending Clinician Unavailable Kenn Goodrich MD Attending Clinician HARINI, WONDIFUL A Attending Clinician Unavailable Carolyn Newton MD Attending Clinician ANTONI WALLS Attending Clinician Unavailable Goldie Arenas Attending Clinician Unavailable Antoni Walls MD Attending Clinician Ultrasound, Ang-Mfm Attending Clinician Unavailable Lm Buck MD Attending Clinician CAROLYN NEWTON Admitting Clinician Unavailable Hunter Blankenship MD Admitting Clinician Carolyn Newton MD Admitting Clinician Payers Payer Name Policy Type Policy Number Effective Date Expiration Date Uyen gallo [facility] [id number] 2019 00:00:00 PLUS Problems Condition Condition Condition Status Onset Resolution Last Treating Co mments Source Name Details Category Date Date Treatment Clinician Date Low HDL Low HDL Disease Active Univers (under 40) (under 40) 7 it y of 00:00: [address] Branch Migraines Migraines Disease Active Uni vers 4- ity of 00:00: [place] [address] Medical Branch Seasonal Seasonal Disease Active Unive rs allergies allergies 4 ity of 00:00: [place] [facility] Anxiety Anxiety Disease Active Univers 4-09 ity of 00:00: [address] Branch Learning Learning Disease Active Unive rs disability disability 4 it y of 00:00: [address] Uses Uses Disease Active Univers Depo-Prove Depo-Prove 01-06 it y of ra as ra as 00:00: [place] primary primary 00 Medical [place] control control method method Allergies, Adverse Reactions, Alerts Allergy Allergy Status Severity Reaction(s) Onset Inactive Treating Comm ents Source Name Type Date Date Clinician NO KNOWN Drug Active Univers ALLERGIE Class ity of S [facility] Social History Social Habit Start Date Stop Date Quantity Comments Source History of Passive smoker [place] of tobacco use [facility] Exposure to 2022-10-20 2022-10-30 Not sure [facility] SARS-CoV-2 00:00:00 15:18:00 [facility] (event) [place] Alcohol intake 2022-10-30 2022-10-30 Ex-drinker [facility] 00:00:00 00:00:00 (finding) [facility] Tobacco use and 2022-07-15 2022-07-15 Smokeless tobacco Un iversity of exposure 00:00:00 00:00:00 non-user [facility] Sex Assigned At [birth year] Universit y of 00:00:00 00:00:00 [facility] Smoking Status Start Date Stop Date Source Never smoked tobacco [facility] Medications Ordered Filled Start Stop Current Ordering Indication Dosage Frequency Signature Comments Components Source Medication Medication Date Date Medication? Clinician (SIG) Name Name medroxyPROG 2021-11- No [id number] 150mg Univers ESTERone -23 12-23 ity of (DEPO-PROVE 22:00: 21:49 [place] RA) syringe 00 :00 Medical 150 mg Branch medroxyPROG 2021-11- No [id number] 150mg 150 mg, Univers ESTERone -23 12-23 Intramuscu ity of (DEPO-PROVE 22:00: 21:49 lar, ONCE, [place] RA) syringe 00 :00 1 dose, On Me dical 150 mg [facility] 10/30/22 at 1600, Routine meloxicam 2021-11 Yes [id number] 7.5mg Take 1 Univers 7.5 mg 0-13 9102 tablet by ity of tablet 00:00: mouth in [place] [address] the Medical morning. [place] meloxicam 2021-11 Yes [id number] 7.5mg Take 1 Univers 7.5 mg 0-13 9102 tablet by ity of tablet 00:00: mouth in [place] the Medical morning. [place] meloxicam 2021-11 Yes [id number] 7.5mg Take 1 Univers 7.5 mg 0-13 9102 tablet by ity of tablet 00:00: mouth in [place] 00 the Medical morning. [place] meloxicam 2021-11 Yes [id number] 7.5mg Take 1 Univers 7.5 mg 0-13 9102 tablet by ity of tablet 00:00: mouth in [place] [address] the Medical morning. [place] medroxyPROG 2021- No [id number] 150mg Univers ESTERone 08-07 ity of (DEPO-PROVE 20:45: 19:48 [place] RA) syringe 00 :00 Medical 150 mg Branch medroxyPROG 2021- No [id number] 150mg 150 mg, Univers ESTERone 08-07 Intramuscu ity of (DEPO-PROVE 20:45: 19:48 lar, ONCE, [place] RA) syringe 00 :00 1 dose, On Me dical 150 mg Fri Branch 08/07/22 at 1545, Routine SERTraline Yes [id number] 100mg Take 1 Univers (ZOLOFT) 4-15 tablet by ity of 100 mg 00:00: mouth [place] tablet 00 daily. Medical Branch hydrOXYzine Yes [id number] 50mg Take 1 Univers 50 mg 4-15 tablet by ity of tablet 00:00: mouth 3 [place] 00 (three) Medical times Branch daily as needed for Anxiety. SERTraline Yes [id number] 100mg Take 1 Univers (ZOLOFT) 4-15 tablet by ity of 100 mg 00:00: mouth [place] tablet 00 daily. [facility] Branch hydrOXYzine Yes [id number] 50mg Take 1 Univers 50 mg 4-15 tablet by ity of tablet 00:00: mouth 3 [place] 00 (three) Medical times Branch daily as needed for Anxiety. SERTraline 2021- No [id number] 100mg Take 1 Univers (ZOLOFT) 4-15 - tablet by ity o f 100 mg 00:00: 00:00 mouth [place] tablet 00 :00 daily. [facility] Branch hydrOXYzine 2021- No [id number] 50mg Take 1 Univers 50 mg 4-15 -22 tablet by ity of tablet 00:00: 00:00 mouth 3 [place] 00 :00 (three) Medical times Branch daily as needed for Anxiety. SERTraline 2021- No [id number] 100mg Take 1 Univers (ZOLOFT) 4-15 -22 tablet by ity o f 100 mg 00:00: 00:00 mouth [place] tablet 00 :00 daily. [facility] Branch hydrOXYzine 2021- No [id number] 50mg Take 1 Univers 50 mg 4-15 - tablet by ity of tablet 00:00: 00:00 mouth 3 [place] 00 :00 (three) Medical times Branch daily as needed for Anxiety. SUMAtriptan Yes [id number] Take 1 tab Univers 25 mg 4-09 po x 1 ity of tablet 00:00: dose PRN 00 migraine, Medical may take Branch another dose x 1 two hours later if needed; max 2 doses/24 hours SUMAtriptan Yes [id number] Take 1 tab Univers 25 mg 02-14 po x 1 ity of tablet 00:00: dose PRN 00 migraine, Medical may take Branch another dose x 1 two hours later if needed; max 2 doses/24 hours SUMAtriptan 2021- No [id number] Take 1 tab Univers 25 mg 02-14 po x 1 ity of tablet 00:00: 00:00 dose PRN [place] 00 :00 migraine, Medical may take Branch another dose x 1 two hours later if needed; max 2 doses/24 hours SUMAtriptan 2021- No [id number] Take 1 tab Univers 25 mg 02-14 po x 1 ity of tablet 00:00: 00:00 dose PRN [place] 00 :00 migraine, Medical may take Branch another dose x 1 two hours later if needed; max 2 doses/24 hours docusate Yes [id number] 240mg Take 1 Univers calcium 240 2-07 102 capsule by it y of mg capsule 00:00: mouth once [place] 00 daily as Medical needed for Branch Constipati on. ferrous Yes [id number] 325mg Take 1 Univers sulfate 325 2-07 102 tablet by ity of mg (65 mg 00:00: mouth 2 [place] iron) 00 (two) Medical tablet times Branch daily. docusate Yes [id number] 240mg Take 1 Univers calcium 240 2-07 102 capsule by it y of mg capsule 00:00: mouth once [place] 00 daily as Medical needed for Branch Constipati on. ferrous Yes [id number] 325mg Take 1 Univers sulfate 325 2-07 102 tablet by ity of mg (65 mg 00:00: mouth 2 [place] iron) 00 (two) Medical tablet times Branch daily. ferrous Yes [id number] 325mg Take 1 Univers sulfate 325 2-07 102 tablet by ity of mg (65 mg 00:00: mouth 2 [place] iron) 00 (two) Medical tablet times Branch daily. ferrous Yes [id number] 325mg Take 1 Univers sulfate 325 2-07 102 tablet by ity of mg (65 mg 00:00: mouth 2 [place] iron) 00 (two) Medical tablet times Branch daily. ferrous Yes [id number] 325mg Take 1 Univers sulfate 325 2-07 102 tablet by ity of mg (65 mg 00:00: mouth 2 [place] iron) 00 (two) Medical tablet times Branch daily. ferrous Yes [id number] 325mg Take 1 Univers sulfate 325 2-07 102 tablet by ity of mg (65 mg 00:00: mouth 2 [place] iron) 00 (two) Medical tablet times Branch daily. ferrous Yes [id number] 325mg Take 1 Univers sulfate 325 2-07 102 tablet by ity of mg (65 mg 00:00: mouth 2 [place] iron) 00 (two) Medical tablet times Branch daily. ferrous Yes [id number] 325mg Take 1 Univers sulfate 325 2-07 102 tablet by ity of mg (65 mg 00:00: mouth 2 [place] iron) 00 (two) Medical tablet times Branch daily. ferrous Yes [id number] 325mg Take 1 Univers sulfate 325 2-07 102 tablet by ity of mg (65 mg 00:00: mouth 2 [place] iron) 00 (two) Medical tablet times Branch daily. ferrous Yes [id number] 325mg Take 1 Univers sulfate 325 2-07 102 tablet by ity of mg (65 mg 00:00: mouth 2 [place] iron) 00 (two) Medical tablet times Branch daily. ferrous Yes [id number] 325mg Take 1 Univers sulfate 325 2-07 102 tablet by ity of mg (65 mg 00:00: mouth 2 [place] iron) 00 (two) Medical tablet times Branch daily. docusate 2021- No [id number] 240mg Take 1 Univers calcium 240 12-15 102 capsule by i ty of mg capsule 00:00: 00:00 mouth once [place] 00 :00 daily as Medical needed for Branch Constipati on. docusate 2021- No [id number] 240mg Take 1 Univers calcium 240 12-15 102 capsule by i ty of mg capsule 00:00: 00:00 mouth once [place] 00 :00 daily as Medical needed for Branch Constipati on. Immunizations Ordered Filled Immunization Date Status Comments [facility] e Immunization Name Name TDAP 2020-10-09 Completed University of 00:00:00 [place] [facility] TDAP 2020-10-09 Completed University of 00:00:00 [place] [facility] TDAP 2020-10-09 Completed University of 00:00:00 [place] [facility] TDAP 2020-10-09 Completed University of 00:00:00 [place] [facility] TDAP 2020-10-09 Completed University of 00:00:00 [place] [facility] TDAP 2020-10-09 Completed University of 00:00:00 [place] [facility] TDAP 2020-10-09 Completed University of 00:00:00 [place] [facility] TDAP 2020-10-09 Completed University of 00:00:00 [place] [facility] TDAP 2020-10-09 Completed University of 00:00:00 [place] [facility] TDAP 2020-10-09 Completed University of 00:00:00 [place] [facility] TDAP 2020-10-09 Completed University of 00:00:00 [facility] Influenza Virus 2020-08-12 Completed Universit y of Vacc[place] .5 mL 00:00:00 [place] [facility] IM 6+ MO Branch Influenza Virus 2020-08-12 Completed Universit y of [place] .5 mL 00:00:00 [place] [facility] IM 6+ MO Branch Influenza Virus 2020-08-12 Completed Universit y of [place] .5 mL 00:00:00 [place] [facility] IM 6+ MO Branch Influenza Virus 2020-08-12 Completed Universit y of [place] .5 mL 00:00:00 [place] [facility] IM 6+ MO Branch Influenza Virus 2020-08-12 Completed Universit y of [place] .5 mL 00:00:00 [place] [facility] IM 6+ MO Branch Influenza Virus 2020-08-12 Completed Universit y of [place] .5 mL 00:00:00 [place] [facility] IM 6+ MO Branch Influenza Virus 2020-08-12 Completed Universit y of [place] .5 mL 00:00:00 [place] [facility] IM 6+ MO Branch Influenza Virus 2020-08-12 Completed Universit y of [place] .5 mL 00:00:00 [place] [facility] IM 6+ MO Branch Influenza Virus 2020-08-12 Completed Universit y of [place] .5 mL 00:00:00 [place] [facility] IM 6+ MO Branch Influenza Virus 2020-08-12 Completed Universit y of [place] .5 mL 00:00:00 [place] [facility] IM 6+ MO Branch Influenza Virus 2020-08-12 Completed Universit y of [place] .5 mL 00:00:00 [place] [facility] IM 6+ MO Branch Influenza Virus 2019-09-13 Completed Universit y of Vacc[place] .5 mL 00:00:00 [place] [facility] IM 6+ MO Branch Influenza Virus 2019-09-13 Completed Universit y of [place] .5 mL 00:00:00 [place] [facility] IM 6+ MO Branch Influenza Virus 2019-09-13 Completed Universit y of [place] .5 mL 00:00:00 [place] [facility] IM 6+ MO Branch Influenza Virus 2019-09-13 Completed Universit y of [place] .5 mL 00:00:00 [place] [facility] IM 6+ MO Branch Influenza Virus 2019-09-13 Completed Universit y of [place] .5 mL 00:00:00 [place] [facility] IM 6+ MO Branch Influenza Virus 2019-09-13 Completed Universit y of [place] .5 mL 00:00:00 [facility] 6+ MO Branch Influenza Virus 2019-09-13 Completed Universit y of [place] .5 mL 00:00:00 [place] [facility] 6+ MO Branch Influenza Virus 2019-09-13 Completed Universit y of [place] .5 mL 00:00:00 [facility] 6+ MO Branch Influenza Virus 2019-09-13 Completed Universit y of [place] .5 mL 00:00:00 [facility] 6+ MO Branch Influenza Virus 2019-09-13 Completed Universit y of [place] .5 mL 00:00:00 [facility] 6+ MO Branch Influenza Virus 2019-09-13 Completed Universit y of [place] .5 mL 00:00:00 [facility] 6+ MO Branch Vital Signs Vital Name Observation Time Observation Value Comments Source Systolic blood 2022-10-30 21:47:00 103 mm[Hg] Univer sity of pressure [facility] Diastolic blood 2022-10-30 21:47:00 71 mm[Hg] Unive rsity of pressure [facility] Heart rate 2022-10-30 21:47:00 76 /min [facility] Body temperature 2022-10-30 21:47:00 36.67 Sam[facility] Respiratory rate 2022-10-30 21:47:00 18 /min [facility] Body height 2022-10-30 21:47:00 157.5 cm [facility] Body weight 2022-10-30 21:47:00 74.39 kg Universi ty of [place] [facility] BMI 2022-10-30 21:47:00 30.00 kg/m2 Universi ty of [facility] Branch Systolic blood 2022-08-20 20:16:00 106 mm[Hg] Univer sity of pressure [place] [facility] Diastolic blood 2022-08-20 20:16:00 75 mm[Hg] Unive rsity of pressure [facility] Branch Heart rate 2022-08-20 20:16:00 80 /min Universi ty of [place] [facility] Body height 2022-08-20 20:16:00 157.5 cm Universi ty of [place] [facility] [place] Body weight 2022-08-20 20:16:00 71.895 kg Universi ty of [facility] BMI 2022-08-20 20:16:00 28.99 kg/m2 Universi ty of [facility] Oxygen saturation in 2022-08-20 20:16:00 99 /min University of Arterial blood by [facility] Pulse oximetry Branch Systolic blood 2022-08-07 19:35:00 105 mm[Hg] Univer sity of pressure [place] [facility] Diastolic blood 2022-08-07 19:35:00 74 mm[Hg] Unive rsity of pressure [facility] Heart rate 2022-08-07 19:35:00 65 /min Universi ty of [place] [facility] [place] Body temperature 2022-08-07 19:35:00 36.72 Samara Univ ersity of [facility] Respiratory rate 2022-08-07 19:35:00 17 /min Univ ersity of [facility] Body height 2022-08-07 19:35:00 165.1 cm Universi ty of [place] [facility] Body weight 2022-08-07 19:35:00 70.489 kg Universi ty of [place] [facility] BMI 2022-08-07 19:35:00 25.86 kg/m2 Universi ty of [facility] Branch Systolic blood 2022-07-30 18:21:00 107 mm[Hg] Univer sity of pressure [place] [facility] Diastolic blood 2022-07-30 18:21:00 74 mm[Hg] Unive rsity of pressure [place] [facility] Heart rate 2022-07-30 18:21:00 60 /min Universi ty of [place] [facility] Body height 2022-07-30 18:21:[address] [facility] Body weight 2022-07-30 18:21:00 70.67 kg Universi ty [facility] BMI 2022-07-30 18:21:00 30.43 kg/m2 [facility] Oxygen saturation in 2022-07-30 18:21:00 99 /min [facility] Arterial blood by [facility] Pulse oximetry Branch Systolic blood 2022-07-15 20:00:00 133 mm[Hg] Univer sity of pressure [facility] Diastolic blood 2022-07-15 20:00:00 88 mm[Hg] Unive rsity of [facility] Heart rate 2022-07-15 20:00:00 62 /min [facility] Body temperature 2022-07-15 20:00:00 37.22 Samara Univ [facility]Formerly [facility] Body height 2022-07-15 20:00:[address] [facility] Body weight 2022-07-15 20:00:00 71.033 kg [facility] BMI 2022-07-15 20:00:00 30.58 kg/m2 [facility] Procedures Procedure Date / Time Performed Performing Clinician Sour e POCT TEST 2022-07-15 00:00:00 Elisa Bangura [facility] Encounters Start End Encounter Admission Attending Care Care Encounter Source Date/Time Date/Time Type Type Clinicians Facility Department ID 2021-09-06 Outpatient P [facility] YAA [id number] Univers 21:43:39 it of [facility] 2021-09-06 Outpatient P [facility] YAA [id number] [facility] P [facility] YAA [id number] [facility]-09-06 Out[facility] P [facility] YAA [id number] [facility] 2023-07-15 2023-07-15 Outpatient Meredith BANGURA [facility] [id number] Univers 14:45:00 14:45:00 ELISA [facility] 2023-07-15 2023-07-15 Outpatient R WILLEM [facility] [id number] Univers 14:45:00 14:45:00 ELISA helton [facility] 2023-01-22 2023-01-22 Outpatient R [facility] [id number] Univers 15:00:00 15:00:00 ity [facility] 2022-11-27 2022-11-27 Hunter Gutierrez [facility] 1.2.840.114 [id number] Univers 00:00:00 00:00:00 Den RUELAS [id number] i ty [id number] [id number] [address] 2022-10-30 2022-10-30 [place] [id number] Univers 15:00:00 15:48:14 [facility] 2022-10-30 2022-10-30 Nurse Nurse, [facility] 1.2.840.114 [id number] Univers 15:00:00 15:48:14 Visit WillemMaryjim RUELAS [id number] ity [facility] [id number] [id number] [address] 2022-08-20 2022-08-20 Outpatient [place]eredith [place] [id number] Univers 15:30:00 15:32:49 DUANE helton [facility] 2022-08-20 2022-08-20 [facility] 1.2.840.114 [id number] Univers 15:30:00 15:32:49 Visit [facility] [id number] it y of [facility] [id number] Indra as VÍCTOR?BLEA [id number] [place] gm CHAUDHARI [address] [place] [address] 2022-08-10 2022-08-10 Outpatient Meredith ANAYA [facility] [id number] Univers 15:30:00 15:30:00 DUANE helton [facility] 2022-08-07 2022-08-07 Outpatient R HUNTER BLANKENSHIP [facility] [id number] Univers 14:30:00 14:35:10 ity of [facility] 2022-08-07 2022-08-07 Nurse Nurse, [facility] 1.2.840.114 [id number] Univers 14:30:00 14:35:10 Visit Hunter Blankenship Den [place] [id number] ity of [place] [id number] [facility] [address] 2022-08-06 2022-08-06 Patient Doctor [facility] 1.2.840.114 [id number] Univers 00:00:00 00:00:00 Secure Msg Unassigned, HEALTH 350.1.13.10 ity of [place] JESSENIA [id number] Indra as VÍCTOR?BLEA [id number] [address] OFFICE [facility] 2022-07-30 2022-07-30 Outpatient R BERNARDA [facility] [id number] Univers 13:45:00 23:59:00 YAZMIN ity of [facility] 2022-07-30 2022-07-30 Office Bernarda [facility] 1.2.840.114 [id number] Univers 13:00:00 13:46:26 Visit Yazmin HEALTH 350.1.13.10 it y of [facility] [id number] Indra as VÍCTOR?BLEA [id number] [address] OFFICE [facility] 2022-07-30 2022-07-30 Letter Bernarda [facility] 1.2.840.114 [id number] Univers 00:00:00 00:00:00 (Out) Yazmin HEALTH 350.1.13.10 it y of [facility] [id number] Indra as VÍCTOR?BLEA [id number] [place] dic[address] OFFICE [facility] 2022-07-15 2022-07-15 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, [facility] 1.2.840.114 [id number] Univers 15:45:00 16:00:00 Visit Elisa Bangura [id number] ity [place] [id number] Il dical [facility] [address] [facility] 2022-07-15 2022-07-15 Outpatient R WILLEM [facility] [id number] Univers 15:45:00 15:45:00 [facility] 2022-07-15 2022-07-15 Office [facility] [id number] Univers 15:00:00 15:34:26 Visit Elisa RUELAS 350.1.13.10 i ty [facility] [id number] [id number] Il dical [facility] [address] [facility] 2022-07-15 2022-07-15 Outpatient R WILLEM [facility] [id number] Univers 15:00:00 15:34:26 [facility] 2022-07-15 2022-07-15 Orders Doctor KRAUS 1.2.840.114 [id number] Univers 00:00:00 00:00:00 Only Unassigned, [place] 350.1.13.10 ity of [place] [facility] 4.2.7.2.686 Indra as [id number] [address] 2022-05-15 2022-05-15 Outpatient R HUNTER BLANKENSHIP [facility] [id number] Univers 14:30:00 14:36:07 ity [facility] 2022-05-15 2022-05-15 Nurse Nurse, [facility] 1.2.840.114 [id number] Univers 14:30:00 14:36:07 Visit Hunter Blankenship 350.1.13.10 ity [facility] [id number] [id number] Il dical [facility] [address] [facility] 2022-03-20 2022-03-20 Outpatient R RITA [facility] [id number] Univers 15:20:00 15:20:00 OSCAR itdennis [facility] 2022-02-20 2022-02-20 Outpatient R ADRIANA SANDY [facility] [id number] Univers 14:00:00 14:42:25 ADRIANA SANDY ity [facility] 2022-02-20 2022-02-20 Office Danilo [facility] 1.2.840.114 [id number] Univers 14:00:00 14:42:25 Visit Adriana RUELAS 350.1.13.10 ity [facility] 4.2.[place] [id number] Il dical NAL [address] [facility] 2022-02-20 2022-02-20 Nurse Nurse, [facility] 1.2.840.[id number] [facility] 08:00:00 13:53:03 Visit Hunter Blankenship 350.1.13.10 ity [place] [id number] Il dical NAL [address] [place] [address] 2021-11-28 2021-11-28 Outpatient R [facility]IE [facility] [id number] Univers 10:30:00 10:57:47 ity of [facility] 2021-11-28 2021-11-28 Nurse Nurse, [facility] 1.2.840.[id number] [facility] 10:30:00 10:57:47 Visit Hunter Blankenship 350.1.13.10 ity of [facility] [id number] [id number] Il dical NAL [address] [place] [address] 2021-11-21 2021-11-21 Outpatient R HUNTER BLANKENSHIP [facility] [id number] Univers 15:30:00 15:30:00 ity of [facility] 2021-08-27 2021-08-27 Nurse Nurse, [facility] 1.2.840.114 [id number] Univers 15:36:01 15:55:47 Visit Elisa Bangura 350.1.13.10 ity of [place] Profess[place] [id number] Il dical nal [address] [place] [address] 2021-08-27 2021-08-27 Outpatient R [facility] [id number] [facility] Univers 15:30:00 15:30:00 ity of [facility] 2021-08-27 2021-08-27 Orders Doctor EFRA 1.2.840.114 [id number] Univers 00:00:00 00:00:00 Only Unassigned, MILAD 350.1.13.10 ity of [place] [facility] 4.2.7.2.686 Indra as [phone] [address] 2021-07-09 2021-07-09 Outpatient R WILLEM [facility] [id number] Univers 15:30:00 15:30:00 ELISA itdennis [facility] 2021-07-09 2021-07-09 Office Willem [facility] 1.2.536.166 [id number] Univers 14:59:28 15:29:28 Visit Elisa Ruelas 350.1.13.10 [place] [phone] [place] dic[address] 2021-06-04 2021-06-04 Nurse Nurse, [facility] 1.2.840.114 [id number] Univers 15:31:05 16:35:07 Visit Hunter Blankenship 350.1.13.10 ity of [place] [phone] [place] dical nal [address] [place] [address] 2021-06-04 2021-06-04 Outpatient R [facility] [id number] Univers 15:30:00 15:30:00 ity of [facility] 2021-06-04 2021-06-04 Orders Doctor KRAUS 1.2.840.114 [id number] Univers 00:00:00 00:00:00 Only Unassigned, MILAD 350.1.13.10 ity of [place] [facility] 4.2.7.2.686 Indra as [phone] [address] 2021-06-03 2021-06-03 Telephone Hunter Blankenship [facility] 1.2.840.114 [id number] Univers 00:00:00 00:00:00 Den Ruelas 350.1.13.10 i [place] [phone] Il dical nal 134 [facility] 2021-05-13 2021-05-13 Telephone Harini [facility] 1.2.840.114 [id number] Univers 00:00:00 00:00:00 W[facility]iful [facility] 350.1.13.10 ity of [place] 4.2.7.2.686 Indra as Professio [phone] Il dical nal [address] [place] Office [facility] 2021-05-11 2021-05-11 Case [facility] 1.2.840.114 [id number] Univers 00:00:00 00:00:00 Management [facility] 350.1.13.10 ity of [place] 4.2.7.2.686 Indra as Professio [phone] Il dical nal 044 [facility] 2021-05-09 2021-05-09 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, Adc Lab [facility] 1.2.840.114 [id number] Univers 08:55:31 09:10:31 Visit Elisa Bangura 350.1.13.10 it[place] of [place] [phone] Il dical nal 353 [facility] 2021-05-09 2021-05-09 Outpatient R WILLEM [facility] [id number] Univers 09:00:00 09:00:00 ELISA ity of [facility] 2021-05-06 2021-05-06 [facility] 1.2.840.114 [id number] Univers 00:00:00 00:00:00 Elisa Ruelas 350.1.13.10 i ty of [place] [phone] Il dical nal 134 [facility] 2021-04-28 2021-04-28 [facility] 1.2.840.114 [id number] Univers 00:00:00 00:00:00 Elisa Ruelas 350.1.13.10 i [place] [phone] Il dical nal 134 [facility] 2021-04-09 2021-04-09 Outpatient R JOLEEN [facility] [id number] Univers 13:00:00 13:00:00 SENDIL ity [facility] 2021-03-17 2021-03-17 Office Joleen [facility] 1.2.840.114 [id number] Univers 14:53:00 15:23:57 Visit Sendatiya Ruelas 350.1.13.10 ity of [place] [phone] Il dicin nal 059 [facility] 2021-03-17 2021-03-17 Outpatient R JOLEEN [facility] [id number] Univers 15:00:00 15:00:00 SENDIL ity [facility] 2021-03-11 2021-03-11 Nurse Nurse, [facility] 1.2.840.114 [id number] Univers 14:51:35 15:06:35 Visit Elisa Bangura 350.1.13.10 it[place] of [place] [phone] [facility] 134 [facility] 2021-03-11 2021-03-11 Outpatient R [facility] [id number] Univers 15:00:00 15:00:00 ity of [facility] 2021-03-11 2021-03-11 Orders Doctor KRAUS 1.2.840.114 [id number] Univers 00:00:00 00:00:00 Only Unassigned, MILAD 350.1.13.10 ity of [place] [facility] 4.2.7.2.686 Indra as [phone] [address] 2021-02-14 2021-02-14 Office [facility] 1.2.840.114 [id number] Univers 14:36:37 16:17:35 Visit [facility] 350.1.13.10 ity of [place] 4.2.7.2.686 Indra as Professio [phone] [facility] [address] [place] [address] One 2021-02-14 2021-02-14 Outpatient R HARINI [facility] [id number] Univers 14:30:00 14:30:00 WONDIFUL ity o f [facility] 2021-01-06 2021-01-06 [facility] 1.2.350.917 [id number] Univers 14:53:10 16:13:11 Cam [place] 350.1.13.10 ity [place] [phone] Il dical nal [address] [place] [address] 2021-01-06 2021-01-06 Outpatient R BLANK[facility]SHIP [facility] [id number] Univers 15:00:00 15:00:00 ity of [facility] 2020-12-17 2020-12-17 Outpatient R PATTIE [facility] [id number] Univers 16:15:00 16:15:00 ity of [facility] 2020-12-17 2020-12-17 Outpatient R [facility] [id number] Univers 16:00:00 16:00:00 ity of [facility] 2020-12-12 2020-12-15 Hospital Pattie [facility] 1.2.840.114 [id number] Univers 18:52:00 12:35:00 Encounter Cam [place] 350.1.13.10 it[place] of [place] [phone] [address] 2020-12-11 2020-12-12 [facility] 1.2.840.114 [id number] Univers 17:54:00 02:45:00 Encounter Carolyn L [place] 350.1.13.10 it[place] of [place] [phone] [address] 2020-12-09 2020-12-09 Routine Pattie [facility] 1.2.333.842 [id number] Univers 16:06:07 16:21:07 Cam [place] 350.1.13.10 ity [place] [phone] [place] dic[address] 2020-12-09 2020-12-09 Outpatient R HUNTER BLANKENSHIP [facility] [id number] Univers 16:15:00 16:15:00 ity of [facility] 2020-12-09 2020-12-09 Orders Doctor EFRA 1.2.840.114 [id number] Univers 00:00:00 00:00:00 Only Unassigned, MILAD 350.1.13.10 ity of [place] [facility] 4.2.7.2.686 Indra as [phone] [address] 2020-11-21 2020-11-21 Routine Willem [facility] 1.2.199.446 [id number] Univers 16:04:44 16:19:44 Elisa Ruelas 350.1.13.10 ity [place] [phone] [place] dic[address] 2020-11-21 2020-11-21 Outpatient R WILLEM [facility] [id number] Univers 16:15:00 16:15:00 ELISA ity [facility] 2020-11-18 2020-11-18 Telephone Willem [facility] 1.2.840.114 [id number] Univers 00:00:00 00:00:00 Elisa Ruelas 350.1.13.10 i ty of [place] [phone] [address] 2020-11-07 2020-11-07 Outpatient R WILLEM [facility] [id number] Univers 16:15:00 16:15:00 ELISA itdennis [facility] 2020-11-07 2020-11-07 Routine Hunter Blankenship [facility] 1.2.840.114 [id number] Univers 12:52:16 13:32:28 Elisa Bangura 350.1.13.10 ity [place] [phone] [address] 2020-10-24 2020-10-24 Routine Hunter Blankenship [facility] 1.2.345.922 [id number] Univers 14:42:53 15:48:59 Den Ruelas 350.1.13.10 ity of [place] [phone] [facility] 134 [facility] 2020-10-24 2020-10-24 Outpatient R HUNTER BLANKENSHIP [facility] [id number] Univers 14:45:00 14:45:00 ity of [facility] 2020-10-09 2020-10-[address] [facility] 1.2.292.982 [id number] Univers 14:09:45 14:24:45 Elisa Ruelas 350.1.13.10 ity of [place].2.[place] [facility] [phone] [facility] 134 [facility] 2020-10-09 2020-10-09 [place] [id number] Univers 13:30:00 13:30:00 ELISA ity 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 [facility] 1.2.840.114 [id number] Univers 13:06:42 13:21:42 Visit Hunter Blankenship Den Ruelas 350.1.13.10 ity of [place] [phone] [facility] 353 [facility] 2020-10-06 2020-10-06 [facility] 1.2.840.114 [id number] Univers 13:56:00 16:35:00 Encounter Carolyn Ruelas 350.1.13.10 it[place] of [place] [phone] [facility] [address] [place] 2020-09-16 2020-09-16 Outpatient ANTONI MOSS [facility] [id number] Univers 13:45:00 13:45:00 ity of [facility] 2020-09-16 2020-09-16 Telemedici Goldie Arenas [facility] 1.2.8 40.114 [id number] Univers 09:27:27 09:42:27 ne Visit Antoni Walls NUCLEAR CONTROL ROOM OPERATOR 350.1.13.10 ity of [facility] 4.2.7.2.686 Indra as MATERNAL [phone] [facility] ical & CHILD 124 [facility] 2020-09-09 2020-09-09 Routine Blankenship Hunter [facility] 1.2.599.247 [id number] Univers 15:28:55 16:02:46 Den Ruelas 350.1.13.10 ity of [place] [phone] [place] dic[address] 2020-09-09 2020-09-09 Outpatient R HUNTER BLANKENSHIP [facility] [id number] Univers 15:30:00 15:30:00 ity [facility] 2020-08-20 2020-08-20 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 [facility] 1.2 .840.114 [id number] Univers 12:58:15 14:13:15 Visit HeberLm NUCLEAR CONTROL ROOM OPERATOR 350.1.13.10 ity of [facility] 4.2.7.2.686 Indra as MATERNAL [phone] Med ical & CHILD [address] [place] [address] 2020-08-20 2020-08-20 Outpatient P [facility] [id number] Univers 13:00:00 13:00:00 ity [facility] 2020-08-12 2020-08-12 Rout[facility] 1.2.693.563 [id number] Univers 14:30:44 14:45:44 Elisa Ruelas 350.1.13.10 ity [place] [phone] [address] 2020-08-12 2020-08-12 Outpatient R WILLEM [facility] [id number] Univers 14:30:00 14:30:00 ELISA ity 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 [facility] 1.2.840.114 [id number] Univers 15:16:02 15:31:02 Visit BlankenshipHunter Den Ruelas 350.1.13.10 ity of [place] [phone] Il dical [facility] 353 [facility] 2020-07-16 2020-07-16 Routine Hunter Blankenship [facility] 1.2.919.636 [id number] Univers 13:50:36 15:02:36 Cam [place] 350.1.13.10 ity of [place].2.[place] [phone] [facility] 134 [facility] 2020-07-16 2020-07-16 Outpatient R HUNTER BLANKENSHIP [facility] [id number] Univers 13:45:00 13:45:00 ity of [facility] 2020-06-21 2020-06-21 Telephone Pattie [facility] 1.2.840.114 [id number] Univers 00:00:00 00:00:00 Cam [place] 350.1.13.10 i ty of [place] [phone] [address] 2020-06-20 2020-06-20 Telephone Hunter Blankenship [facility] 1.2.840.114 [id number] Univers 00:00:00 00:00:00 Cam [place] 350.1.13.10 i ty of [place] 4.[place].2.[place] [phone] [address] 2020-06-18 2020-06-18 Telephone Hunter Blankenship [facility] 1.2.840.114 [id number] Univers 00:00:00 00:00:00 Cam [place] 350.1.13.10 i ty of [place] 4[place].2.[place] [phone] [place] dic[address] 2020-06-12 2020-06-12 Outpatient R [facility] [id number] Univers 10:30:00 10:30:00 ity of [facility] 2020-06-12 2020-06-12 Orders Doctor KRAUS 1.2.840.114 [id number] Univers 00:00:00 00:00:00 Only Unassigned, MILAD 350.1.13.10 ity of [place] [facility] 4.2.7.2.686 Indra as [phone] [address] 2020-06-11 2020-06-11 Routine Hunter Blankenship [facility] 1.2.091.354 [id number] Univers 15:16:46 16:09:17 Cam [place] 350.1.13.10 ity [place].2.[place] [phone] Il dical nal 134 [facility] 2020-06-11 2020-06-11 Outpatient R [facility] [id number] Univers 15:30:00 15:30:00 ity of [facility] 2020-06-11 2020-06-11 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, Adc Lab [facility] 1.2.840.114 [id number] Univers 15:02:35 15:17:35 Visit Hunter Blankenship [place] 350.1.13.10 ity of [place].2.[place] [phone] Il dical nal 353 [facility] 2020-05-14 2020-05-14 Initial Hunter Blankenship [facility] 1.2.771.952 [id number] Univers 13:57:03 14:27:03 Cam [place] 350.1.13.10 ity [place].2.[place] [phone] Il dical nal 134 [facility] 2020-05-14 2020-05-14 Outpatient R HUNTER BLANKENSHIP [facility] [id number] Univers 14:00:00 14:00:00 ity of [facility] 2020-05-14 2020-05-14 Orders Doctor EFRA 1.2.840.114 [id number] Univers 00:00:00 00:00:00 Only Unassigned, MILAD 350.1.13.10 ity of [place] [facility] 4.2.7.2.686 Indra as [phone] [address] 2020-03-20 2020-03-20 Outpatient R [facility] [id number] Univers 14:30:00 14:30:00 ity of [facility] 2020-01-02 2020-01-02 Telephone Willem [facility] 1.2.840.114 [id number] Univers 00:00:00 00:00:00 Elisa Ruelas 350.1.13.10 i ty of [place].2.[place] [phone] [address] 2019-12-20 2019-12-20 Office Willem [facility] 1.2.282.430 [id number] Univers 14:57:43 15:33:36 Visit Elisa Jessenia 350.1.13.10 i ty of [place] 4[place].2.[place] [phone] [address] 2019-12-20 2019-12-20 Office [facility] 1.2.379.433 [id number] Univers 14:30:00 15:00:00 Visit Elisajim Ruelas 350.1.13.10 i ty of [place] [phone] [address] 2019-12-20 2019-12-20 Orders Doctor EFRA 1.2.840.114 [id number] Univers 00:00:00 00:00:00 Only Unassigned, MILAD 350.1.13.10 ity of [place] [facility] 4.2.7.2.686 Indra as [phone] [address] 2019-06-12 2019-06-12 Nurse Nurse, [facility] 1.2.840.114 [id number] Univers 14:07:50 14:29:25 Visit Elisa Bangura 350.1.13.10 ity of [place].2.[place] [phone] [address] 2019-06-12 2019-06-12 Orders Doctor EFRA 1.2.840.114 [id number] Univers 00:00:00 00:00:00 Only Unassigned, MILAD 350.1.13.10 ity of [place] [facility] 4.2.7.2.686 Indra as [phone] [address] Results Test Description Test Time Test Comments Results Result Comments Source POCT TEST 2022-07-15 20:04:00 Test Item Value Reference Range Interpretation Comme nts POCT PREG (test code = 1605) Negative On board controls acceptable with C Line (test code = 3574) Yes POCT PREG LOT # (test code = 3575) POCT PREG TEST DATE (test code = 3576) [id number] 20:04:00 Test Item Value Reference Range Interpretation Comments POCT PREG (test code = 1605) Negative On board controls acceptable with C Yes Line (test code = 3574) POCT PREG LOT # (test code = 3575) POCT PREG TEST DATE (test code = 3576) [facility]
[2022-12-23 08:16] LABS: Urine Blood Trace-intact (Negative); Urine Glucose Negative (Negative); Urine Protein Negative (Negative); Urine Specific Gravity 1.025 (1.005-1.030); Urine pH 5.5 (5.0-7.0)
[2022-12-23 08:38] LABS: Absolute Lymphocytes (CBC) 0.4 K/uL (0.7-4.9); Hematocrit 40.2 % (36.0-45.0); Lymphocytes % 9.4 % (15.3-44.8); MCV 88.4 fL (80-100); MPV 7.9 fL (7.6-11.3); RBC Red Blood Cell Count 4.55 M/uL (3.86-4.86)
[2022-12-23 08:55] LABS: Potassium 3.7 mmol/L (3.5-5.1)
--- NOTE | 2022-12-23 10:05 | ER ---
Nurse's Notes [facility] Name: Lucy Charles Age: 22 yrs Sex: Female : 2000 Arrival Date: 12/23/2022 Time: 07:35 Bed 7 Private MD: Diagnosis: GI Bleed/ Gastrointestinal hemorrhage, unspecified Presentation: 12/23 07:44 Chief complaint: Patient states: she has been constipated, and took some laxatives. ap3 patient states she has now been "peeing blood from by butt" yesterday. Patient states she woke up this morning, and fell when she attempted to walk to the bathroom. patient reports she feels like her color is off. Coronavirus screen: At this time, the client does not indicate any symptoms associated with coronavirus-19. Ebola Screen: No symptoms or risks identified at this time. Initial Sepsis Screen: Does the patient meet any 2 criteria? No. Patient's initial sepsis screen is negative. Does the patient have a suspected source of infection? No. Patient's initial sepsis screen is negative. Risk Assessment: Do you want to hurt yourself or someone else? Patient reports no desire to harm self or others. Onset of symptoms was December 22, 2022. 07:44 Method Of Arrival: Ambulatory ap3 07:44 Acuity: KERRI 3 ap3 Triage Assessment: 07:49 General: Appears in no apparent distress. Behavior is calm, cooperative. Pain: Denies ap3 pain. Neuro: Level of Consciousness is awake, alert, obeys commands, Oriented to person, place, time, situation. Cardiovascular: Patient's skin is warm and dry. Respiratory: Airway is patent Respiratory effort is even, unlabored, Respiratory pattern is regular, symmetrical. GI: Reports rectal bleeding, bloody stool. 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 Flu vaccine is up to date. - Social history:: Smoking status: Reported history of juuling and/or vaping. Screenin:49 [facility] ED Fall Risk Assessment (Adult) History of falling in the last 3 months, ap3 including since admission Yes- single mechanical fall (1 pt). Abuse screen: Denies threats or abuse. Nutritional screening: No deficits noted. Tuberculosis screening: No symptoms or risk factors identified. Assessment: 08:22 General: Appears. sg5 08:36 General: Behavior is calm, cooperative, appropriate for age, Reports fatigue for 2-3 sg5 days. Pain: Denies pain. Neuro: No deficits noted. Level of Consciousness is awake, alert, obeys commands, Oriented to person, place, time, situation, Appropriate for age. Cardiovascular: No deficits noted. Respiratory: No deficits noted. Airway is patent. GI: Abdomen is flat, non-distended, Rectal exam: Patient reports rectal bleeding only when having a bowel movement. Reports nausea, vomiting, When eating for the last 2-3 days. : No deficits noted. EENT: No deficits noted. Derm: No deficits noted. No signs and/or symptoms reported regarding the dermatologic system. Musculoskeletal: No deficits noted. No signs and/or symptoms reported regarding the musculoskeletal system. 08:46 Reassessment: Patient appears in no apparent distress at this time. No changes from ld1 previously documented assessment. 09:19 Reassessment: Patient appears in no apparent distress at this time. Patient and/or ld1 family updated on plan of care and expected duration. Pain level reassessed. 10:10 Reassessment: Patient appears in no apparent distress at this time. No changes from sg5 previously documented assessment. Patient and/or family updated on plan of care and expected duration. Pain level reassessed. General: Appears in no apparent distress. comfortable, Behavior is calm, cooperative, appropriate for age. Pain: Denies pain. Neuro: No deficits noted. Level of Consciousness is awake, alert, obeys commands, Oriented to person, place, time, situation, Appropriate for age. Cardiovascular: No deficits noted. Respiratory: No deficits noted. Airway is patent. GI: Abdomen is flat, non-distended, Rectal exam: Patient report bleeding with bowel movements Reports. : No deficits noted. EENT: No deficits noted. Derm: No deficits noted. No signs and/or symptoms reported regarding the dermatologic system. Musculoskeletal: No deficits noted. No signs and/or symptoms reported regarding the musculoskeletal system. Vital Signs: 07:44 BP 127 / 63; Pulse 95; Resp 17; Temp 100.0; Pulse Ox 99% ; ap3 08:15 BP 106 / 69; Pulse 74; Resp 16; Temp 97.9; Pulse Ox 98% on R/A; Pain 0/10; sg5 08:46 BP 102 / 67; Pulse 60; Resp 18; Pulse Ox 99% on R/A; ld1 09:19 BP 101 / 64; Pulse 61; Resp 18; Pulse Ox 99% on R/A; ld1 10:10 BP 118 / 65; Pulse 63; Resp 16; Pulse Ox 99% ; Pain 0/10; sg5 ED Course: 07:35 Patient arrived in ED. rg4 07:44 William Silverman MD is Attending Physician. bs3 07:47 Triage completed. ap3 07:50 Arm band placed on left wrist. ap3 07:56 Clare Davila, RN is Primary Nurse. sg5 08:15 Patient has correct armband on for positive identification. Placed in gown. Bed in low sg5 position. Call light in reach. Side rails up X 1. Pulse ox on. NIBP on. Door closed. Noise minimized. Lights dimmed. Moved to private room. Warm blanket given. Verbal reassurance given. Head of bed elevated. 08:21 BMP Sent. sg5 08:21 CBC with Diff Sent. sg5 08:22 Inserted saline lock: 20 gauge in right antecubital area, using aseptic technique. sg5 Blood collected. 10:10 IV discontinued. sg5 10:10 No provider procedures requiring assistance completed. sg5 Administered Medications: No medications were administered Medication: 07:50 VIS not applicable for this client. ap3 Outcome: 10:04 Discharge ordered by . bs3 10:10 Discharged to home ambulatory. sg5 10:10 Condition: good 10:10 Discharge instructions given to patient, Instructed on discharge instructions, follow up and referral plans. 10:22 Patient left the ED. sg5 Signatures: Jerilyn Wynne rg4 Jessie Daly RN RN ap3 Joanne Geiger, RN RN ld1 William Silverman MD MD bs3 Clare Davila, JOHN RN sg5
--- NOTE | 2022-12-23 10:05 | EDPHYS ---
Physician Documentation [facility] Name: Lucy Charles Age: 22 yrs Sex: Female : 2000 Arrival Date: 12/23/2022 Time: 07:35 Bed 7 Private MD: ED Physician William Silverman HPI: 12/23 08:03 This 22 yrs old Female presents to ER via Ambulatory with complaints of bs3 Bloody Stools. 08:03 22-year-old female history of chronic constipation presents as she is "peeing blood " bs3 out of her bottom. She notes that she took an unknown medication for constipation yesterday and then started with the symptoms she had slight abdominal pain as well she notes that at first it was only a little bit of blood when she wiped however then there was some blood in the toilet bowl she stood up today and got a little bit lightheaded and therefore became concerned this is never happened before nothing makes her symptoms better or worse. [employer] SALT: 07:50 LMP N/A - Depo-provera ap3 Historical: - Allergies: 07:47 No Known Allergies; ap3 - Home Meds: 07:47 None [Active]; ap3 - PMHx: 07:54 CONSTIPATION; ld1 - Immunization history:: Client reports having NOT received the Covid vaccine. Flu vaccine is up to date. - Social history:: Smoking status: Reported history of juuling and/or vaping. ROS: 08:03 Constitutional: Negative for fever, chills bs3 08:03 All other systems are negative. bs3 Exam: 08:03 Constitutional: This is a well developed, well nourished patient who is awake, alert, bs3 and in no acute distress. Head/Face: Normocephalic, atraumatic. ENT: mmm, no posterior phyarngeal erythema Neck: Trachea midline, no thyromegaly, no neck stiffness Chest/axilla: Normal chest wall appearance and motion. Nontender with no deformity. No lesions are appreciated. Cardiovascular: Regular rate and rhythm with a normal S1 and S2. symmetric pulses in upper extremities Respiratory: Lungs have equal breath sounds bilaterally, clear to auscultation, no respiratory distress Abdomen/GI: Soft, non-tender, no rebound or guarding MS/ Extremity: Pulses equal, no cyanosis. Neurovascular intact. Full, normal range of motion. Neuro: Awake and alert, GCS 15, oriented to person, place, time, and situation. Cranial nerves II-XII grossly intact. Motor strength 5/5 in all extremities. Sensory grossly intact. 08:16 Abdomen/GI: rectal: no active bleeding, no blood on damaris, no external hemorrhoids. bs3 Vital Signs: 07:44 BP 127 / 63; Pulse 95; Resp 17; Temp 100.0; Pulse Ox 99% ; ap3 08:15 BP 106 / 69; Pulse 74; Resp 16; Temp 97.9; Pulse Ox 98% on R/A; Pain 0/10; sg5 08:46 BP 102 / 67; Pulse 60; Resp 18; Pulse Ox 99% on R/A; ld1 09:19 BP 101 / 64; Pulse 61; Resp 18; Pulse Ox 99% on R/A; ld1 10:10 BP 118 / 65; Pulse 63; Resp 16; Pulse Ox 99% ; Pain 0/10; sg5 MDM: 07:44 Patient medically screened. bs3 08:03 Differential diagnosis:. bs3 08:16 Data reviewed: prior hgb 14 in February 2022. bs3 10:03 ED course: hgb not sig changed from prior as inter by myself, pt reassessed, sleeping bs3 comfortably, easily awoke, abd soft, no recurrent bleeding here, advised pcp f/u and return prec. 12/23 07:54 Order name: CBC with Diff bs3 12/23 07:54 Order name: BMP bs3 12/23 08:16 Order name: Urine Dipstick-Ancillary; Complete Time: 09:07 EDMS 12/23 08:19 Order name: Urine --Ancillary (enter results) bd 12/23 08:42 Order name: CBC with Automated Diff; Complete Time: 09:07 EDMS 12/23 08:56 Order name: Basic Metabolic Panel; Complete Time: 09:07 EDMS 12/23 07:54 Order name: Urine Test (obtain specimen); Complete Time: 08:21 bs3 Administered Medications: No medications were administered Disposition Summary: 12/23/22 10:04 Discharge Ordered Location: Home bs3 Problem: new bs3 Symptoms: are resolved bs3 Condition: Stable bs3 Diagnosis - GI Bleed/ Gastrointestinal hemorrhage, unspecified bs3 Followup: bs3 - With: Private Physician - When: 5 - 6 days - Reason: Re-evaluation by your physician Discharge Instructions: - Discharge Summary Sheet bs3 - Gastrointestinal Bleeding bs3 Forms: - Medication Reconciliation Form bs3 - Thank You Letter bs3 - Antibiotic Education bs3 - Prescription Opioid Use bs3 Signatures: Dispatcher [employer] Jessie Lay RN RN ap3 Joanne Geiger RN RN ld1 William Silverman MD MD bs3
[2022-12-23 10:37] LABS: Urine Specific Gravity/Preg 1.025 (1.005-1.030)
[2022-12-23 10:53] VITALS: TEMP 97.9
[2022-12-23 10:54] VITALS: O2SAT 99
[2022-12-23 10:57] VITALS: BP 118/65
== END 2022-12-23 10:22 | disposition home or self-care (01) ==
LOC: ER 07:20
DX: K92.2 Gastrointestinal hemorrhage, unspecified (principal)
CPT/HCPCS: 36415; 80048; 81003; 81025; 85025

== ENCOUNTER 2023-06-12 22:03 | Emergency (ER) | payer OTHER ==
--- OUTSIDE RECORDS SUMMARY | 2023-06-12 22:07 | XMS REPORT | Continuity of Care Document ---
:2000 Author Organization [facility] t Address [address] [facility] [address] [place] [address] Care Team Providers Name Role Phone YAZMIN NGO Primary Care Physician Unavailable ELISA BANGURA Attending Clinician Unavailable Nurse, [facility] Attending Clinician Unavailable Elisa Bangura PA-C Attending Clinician Marcelle Perez RN Attending Clinician Unavailable Doctor Unassigned, [place] Attending Clinician Unavailable Hunter Blankenship MD Attending Clinician DUANE ANAYA Attending Clinician Unavailable Duane Toney Attending Clinician HUNTER BLANKENSHIP Attending Clinician Unavailable YAZMIN NGO Attending Clinician Unavailable Yazmin Field Attending Clinician 2, [facility] Attending Clinician Unavailable OSCAR SALINAS Attending Clinician Unavailable ADRIANA SANDY Attending Clinician Unavailable ADRIANA SANDY Attending Clinician Unavailable Sekou Schuler MD Attending Clinician KENN GOODRICH Attending Clinician Unavailable Kenn Goodrich MD Attending Clinician SEKOU SCHULER Attending Clinician Unavailable Carolyn Newton MD Attending Clinician ANTONI WALLS Attending Clinician Unavailable Goldie Arenas Attending Clinician Unavailable Antoni Walls MD Attending Clinician Ultrasound, Ang-Mfm Attending Clinician Unavailable Lm Buck MD Attending Clinician CAROLYN NEWTON Admitting Clinician Unavailable Hunter Blankenship MD Admitting Clinician Carolyn Newton MD Admitting Clinician Payers Payer Name Policy Type Policy Number Effective Date Expiration Date Uyen gallo [facility] [id number] 2019 00:00:00 PLUS Problems Condition Condition Condition Status Onset Resolution Last Treating Co mments Source Name Details Category Date Date Treatment Clinician Date Low HDL Low HDL Disease Active Univers (under 40) (under 40) 7 it y of 00:00: 00 Medical Branch Migraines Migraines Disease Active Uni vers 4- ity of 00:00: [place] 00 Medical Branch Seasonal Seasonal Disease Active Unive rs allergies allergies 02-14 ity of 00:00: 00 Medical Branch Anxiety Anxiety Disease Active Univers 4-09 ity of 00:00: 00 Medical Branch Learning Learning Disease Active Unive rs disability disability 4 it y of 00:00: [address] Branch Uses Uses Disease Active Univers Depo-Prove Depo-Prove 01-06 it y of ra as ra as 00:00: [place] primary primary 00 Medical [place] control control method method Allergies, Adverse Reactions, Alerts Allergy Allergy Status Severity Reaction(s) Onset Inactive Treating Comm ents Source Name Type Date Date Clinician NO KNOWN Drug Active Univers ALLERGIE Class ity of S [facility] Social History Social Habit Start Date Stop Date Quantity Comments Source History of Passive smoker University of tobacco use [facility] Alcohol intake 2023-04-19 2023-04-19 Ex-drinker [facility] 00:00:00 00:00:00 (finding) [facility] Exposure to 2023-01-12 2023-01-22 Not sure University SARS-CoV-2 00:00:00 14:50:00 [facility] (event) [place] Tobacco use and 2022-07-15 2022-07-15 Smokeless tobacco Un iversity of exposure 00:00:00 00:00:00 non-user [facility] Sex Assigned At [birth year] Universit y of 00:00:00 00:00:00 [facility] Smoking Status Start Date Stop Date Source Never smoked tobacco [facility] Medications Ordered Filled Start Stop Current Ordering Indication Dosage Frequency Signature Comments Components Source Medication Medication Date Date Medication? Clinician (SIG) Name Name medroxyPROG 2022- No [id number] 150mg Univers ESTERone 04-19 ity of (DEPO-PROVE 21:45: 21:07 [place] RA) syringe 00 :00 Medical 150 mg Branch medroxyPROG 2022- No [id number] 150mg 150 mg, Univers ESTERone 04-19 Intramuscu ity of (DEPO-PROVE 21:45: 21:07 lar, ONCE, [place] RA) syringe 00 :00 1 dose, On Me dical 150 mg Mon Branch 04/19/23 at 1645, Routine medroxyPROG 2022-2022- No [id number] 150mg Univers ESTERone -17 -17 ity of (DEPO-PROVE 21:15: 20:15 [place] RA) syringe 00 :00 Medical 150 mg [place] medroxyPROG 2022-0 2022- No [id number] 150mg 150 mg, Univers ESTERone -22 01-17 Intramuscu ity of (DEPO-PROVE 21:15: 20:15 lar, ONCE, [place] RA) syringe 00 :00 1 dose, On Me dical 150 mg Fri [place] 01/22/23 at 1615, Routine medroxyPROG 2021-11- No [id number] 150mg Univers ESTERone - 12-23 ity of (DEPO-PROVE 22:00: 21:49 [place] RA) syringe 00 :00 Medical 150 mg Branch medroxyPROG 2021-11- No [id number] 150mg 150 mg, Univers ESTERone 2-23 12-23 Intramuscu ity of (DEPO-PROVE 22:00: 21:49 lar, ONCE, [place] RA) syringe 00 :00 1 dose, On Me dical 150 mg Fri Branch 10/30/22 at 1600, Routine meloxicam 2021-11 Yes [id number] 7.5mg Take 1 Univers 7.5 mg 0-13 9102 tablet by ity of tablet 00:00: mouth in [place] 00 the Medical morning. Branch meloxicam 2021-11 Yes [id number] 7.5mg Take 1 Univers 7.5 mg 0-13 9102 tablet by ity of tablet 00:00: mouth in [place] 00 the Medical morning. Branch meloxicam 2021-11 Yes [id number] 7.5mg Take 1 Univers 7.5 mg 0-13 9102 tablet by ity of tablet 00:00: mouth in [place] 00 the Medical morning. Branch meloxicam 2021-11 Yes [id number] 7.5mg Take 1 Univers 7.5 mg 0-13 9102 tablet by ity of tablet 00:00: mouth in [place] 00 the Medical morning. [place] meloxicam 2021-11 Yes [id number] 7.5mg Take 1 Univers 7.5 mg 0-13 9102 tablet by ity of tablet 00:00: mouth in [place] 00 the Medical morning. [place] meloxicam 2021-11 Yes [id number] 7.5mg Take 1 Univers 7.5 mg 0-13 9102 tablet by ity of tablet 00:00: mouth in [place] 00 the Medical morning. [place] meloxicam 2021-11 Yes [id number] 7.5mg Take 1 Univers 7.5 mg 0-13 9102 tablet by ity of tablet 00:00: mouth in [place] 00 the Medical morning. [place] meloxicam 2021-11 Yes [id number] 7.5mg Take 1 Univers 7.5 mg 0-13 9102 tablet by ity of tablet 00:00: mouth in [place] 00 the Medical morning. [place] meloxicam 2021-11 Yes [id number] 7.5mg Take 1 Univers 7.5 mg 0-13 9102 tablet by ity of tablet 00:00: mouth in [place] 00 the Medical morning. Branch meloxicam 2021-11 Yes [id number] 7.5mg Take 1 Univers 7.5 mg 0-13 9102 tablet by ity of tablet 00:00: mouth in [place] 00 the Medical morning. [place] medroxyPROG 2021- No [id number] 150mg Univers ESTERone 9-30 09-30 ity of (DEPO-PROVE 20:45: 19:48 [place] RA) syringe 00 :00 Medical 150 mg Branch medroxyPROG 2021- No [id number] 150mg 150 mg, Univers ESTERone 08-07 Intramuscu ity of (DEPO-PROVE 20:45: 19:48 lar, ONCE, [place] RA) syringe 00 :00 1 dose, On Me dical 150 mg Fri Branch 08/07/22 at 1545, Routine SERTraline Yes [id number] 100mg Take 1 Univers (ZOLOFT) 4-15 tablet by ity of 100 mg 00:00: mouth [place] tablet 00 daily. Medical Branch hydrOXYzine Yes [id number] 50mg Take 1 Univers 50 mg 4-15 tablet by ity of tablet 00:00: mouth 3 [place] 00 (three) Medical times Branch daily as needed for Anxiety. SERTraline Yes [id number] 100mg Take 1 Univers (ZOLOFT) 4-15 tablet by ity of 100 mg 00:00: mouth [place] tablet 00 daily. Medical Branch hydrOXYzine Yes [id number] 50mg Take 1 Univers 50 mg 4-15 tablet by ity of tablet 00:00: mouth 3 [place] 00 (three) Medical times Branch daily as needed for Anxiety. SERTraline 2021- No [id number] 100mg Take 1 Univers (ZOLOFT) 4-15 - tablet by ity o f 100 mg 00:00: 00:00 mouth [place] tablet 00 :00 daily. [facility] Branch hydrOXYzine 2021- No [id number] 50mg Take 1 Univers 50 mg 4-15 - tablet by ity of tablet 00:00: 00:00 mouth 3 [place] 00 :00 (three) Medical times Branch daily as needed for Anxiety. SERTraline 2021- No [id number] 100mg Take 1 Univers (ZOLOFT) 4-15 - tablet by ity o f 100 mg 00:00: 00:00 mouth [place] tablet 00 :00 daily. [facility] Branch hydrOXYzine 2021- No [id number] 50mg Take 1 Univers 50 mg 4-15 - tablet by ity of tablet 00:00: 00:00 mouth 3 [place] 00 :00 (three) Medical times Branch daily as needed for Anxiety. SUMAtriptan Yes [id number] Take 1 tab Univers 25 mg - po x 1 ity of tablet 00:00: dose PRN 00 migraine, Medical may take Branch another dose x 1 two hours later if needed; max 2 doses/24 hours SUMAtriptan Yes [id number] Take 1 tab Univers 25 mg - po x 1 ity of tablet 00:00: dose PRN 00 migraine, Medical may take Branch another dose x 1 two hours later if needed; max 2 doses/24 hours SUMAtriptan 2021- No [id number] Take 1 tab Univers 25 mg 02-14 po x 1 ity of tablet 00:00: 00:00 dose PRN [place] 00 :00 migraine, Medical may take Branch another dose x 1 two hours later if needed; max 2 doses/24 hours SUMAtriptan 2021- No [id number] Take 1 tab Univers 25 mg 02-14 po x 1 ity of tablet 00:00: 00:00 dose PRN [place] 00 :00 migraine, Medical may take Branch another dose x 1 two hours later if needed; max 2 doses/24 hours docusate Yes [id number] 240mg Take 1 Univers calcium 240 2-07 102 capsule by it y of mg capsule 00:00: mouth once [place] 00 daily as Medical needed for Branch Constipati on. ferrous Yes [id number] 325mg Take 1 Univers sulfate 325 2-07 102 tablet by ity of mg (65 mg 00:00: mouth 2 [place] iron) 00 (two) Medical tablet times Branch daily. docusate Yes [id number] 240mg Take 1 Univers calcium 240 2-07 102 capsule by it y of mg capsule 00:00: mouth once [place] 00 daily as Medical needed for Branch Constipati on. ferrous 0 Yes [id number] 325mg Take 1 Univers sulfate 325 2-07 102 tablet by ity of mg (65 mg 00:00: mouth 2 [place] iron) 00 (two) Medical tablet times Branch daily. ferrous Yes [id number] 325mg Take 1 Univers sulfate 325 2-07 102 tablet by ity of mg (65 mg 00:00: mouth 2 [place] iron) 00 (two) Medical tablet times Branch daily. ferrous 2020-0 Yes [id number] 325mg Take 1 Univers sulfate 325 2-07 102 tablet by ity of mg (65 mg 00:00: mouth 2 [place] iron) 00 (two) Medical tablet times Branch daily. ferrous 2020-0 Yes [id number] 325mg Take 1 Univers sulfate 325 2-07 102 tablet by ity of mg (65 mg 00:00: mouth 2 [place] iron) 00 (two) Medical tablet times Branch daily. ferrous 2020-0 Yes [id number] 325mg Take 1 Univers sulfate 325 2-07 102 tablet by ity of mg (65 mg 00:00: mouth 2 [place] iron) 00 (two) Medical tablet times Branch daily. ferrous 2020-0 Yes [id number] 325mg Take 1 Univers sulfate 325 2-07 102 tablet by ity of mg (65 mg 00:00: mouth 2 [place] iron) 00 (two) Medical tablet times Branch daily. ferrous 2020-0 Yes [id number] 325mg Take 1 Univers sulfate 325 2-07 102 tablet by ity of mg (65 mg 00:00: mouth 2 [place] iron) 00 (two) Medical tablet times Branch daily. ferrous 2020-0 Yes [id number] 325mg Take 1 Univers sulfate 325 2-07 102 tablet by ity of mg (65 mg 00:00: mouth 2 [place] iron) 00 (two) Medical tablet times Branch daily. ferrous 2020-0 Yes [id number] 325mg Take 1 Univers sulfate 325 2-07 102 tablet by ity of mg (65 mg 00:00: mouth 2 [place] iron) 00 (two) Medical tablet times Branch daily. ferrous 2020-0 Yes [id number] 325mg Take 1 Univers sulfate 325 2-07 102 tablet by ity of mg (65 mg 00:00: mouth 2 [place] iron) 00 (two) Medical tablet times Branch daily. ferrous 2020-0 Yes [id number] 325mg Take 1 Univers sulfate 325 2-07 102 tablet by ity of mg (65 mg 00:00: mouth 2 [place] iron) 00 (two) Medical tablet times Branch daily. ferrous 2020-0 Yes [id number] 325mg Take 1 Univers sulfate 325 2-07 102 tablet by ity of mg (65 mg 00:00: mouth 2 [place] iron) 00 (two) Medical tablet times Branch daily. ferrous Yes [id number] 325mg Take 1 Univers sulfate 325 2-07 102 tablet by ity of mg (65 mg 00:00: mouth 2 [place] iron) 00 (two) Medical tablet times Branch daily. ferrous Yes [id number] 325mg Take 1 Univers sulfate 325 2-07 102 tablet by ity of mg (65 mg 00:00: mouth 2 [place] iron) 00 (two) Medical tablet times Branch daily. ferrous Yes [id number] 325mg Take 1 Univers sulfate 325 2-07 102 tablet by ity of mg (65 mg 00:00: mouth 2 [place] iron) 00 (two) Medical tablet times Branch daily. ferrous Yes [id number] 325mg Take 1 Univers sulfate 325 2-07 102 tablet by ity of mg (65 mg 00:00: mouth 2 [place] iron) 00 (two) Medical tablet times Branch daily. docusate 2021- No [id number] 240mg Take 1 Univers calcium 240 12-15 102 capsule by i ty of mg capsule 00:00: 00:00 mouth once [place] 00 :00 daily as Medical needed for Branch Constipati on. docusate 2021- No [id number] 240mg Take 1 Univers calcium 240 12-15 102 capsule by i ty of mg capsule 00:00: 00:00 mouth once [place] 00 :00 daily as Medical needed for Branch Constipati on. Immunizations Ordered Immunization Filled Immunization Date Status Commen ts Source Name Name TD 2020-10-09 Completed University of 00:00: [facility] TDAP 2020-10-09 Completed University of 00:00: [facility] TDAP 2020-10-09 Completed University of 00:00: [facility] TDAP 2020-10-09 Completed University of 00:00: [facility] TDAP 2020-10-09 Completed University of 00:00:00 [facility] TDAP 2020-10-09 Completed University of 00:00:00 [facility] TDAP 2020-10-09 Completed University of 00:00:00 [facility] TDAP 2020-10-09 Completed University of 00:00: [facility] TDAP 2020-10-09 Completed University of 00:00:00 [facility] Branch TDAP 2020-10-09 Completed University of 00:00:00 [place] [facility] TDAP 2020-10-09 Completed University of 00:00:00 [place] [facility] TDAP 2020-10-09 Completed University of 00:00:00 [place] [facility] TDAP 2020-10-09 Completed University of 00:00:00 [place] [facility] TDAP 2020-10-09 Completed University of 00:00:00 [place] [facility] TDAP 2020-10-09 Completed University of 00:00:00 [place] [facility] TDAP 2020-10-09 Completed University of 00:00:00 [place] [facility] TDAP 2020-10-09 Completed University of 00:00:00 [facility] Influenza Virus 2020-08-12 Completed Universit y of Vaccine [place] .5 mL IM 00:00:00 [facility] 6+ MO Branch Influenza Virus 2020-08-12 Completed Universit y of Vaccine [place] .5 mL IM 00:00:00 [facility] 6+ MO Branch Influenza Virus 2020-08-12 Completed Universit y of Vaccine [place] .5 mL IM 00:00:00 [facility] 6+ MO Branch Influenza Virus 2020-08-12 Completed Universit y of Vaccine [place] .5 mL IM 00:00:00 [facility] [facility] 6+ MO Branch Influenza Virus 2020-08-12 Completed Universit y of Vaccine [place] .5 mL IM 00:00:00 [facility] 6+ MO Branch Influenza Virus 2020-08-12 Completed Universit y of Vaccine [place] .5 mL IM 00:00:00 [facility] 6+ MO Branch Influenza Virus 2020-08-12 Completed Universit y of Vaccine [place] .5 mL IM 00:00:00 [facility] 6+ MO Branch Influenza Virus 2020-08-12 Completed Universit y of Vaccine [place] .5 mL IM 00:00:00 [facility] 6+ MO Branch Influenza Virus 2020-08-12 Completed Universit y of Vaccine [place] .5 mL IM 00:00:00 [facility] [facility] 6+ MO Branch Influenza Virus 2020-08-12 Completed Universit y of Vaccine [place] .5 mL IM 00:00:00 [facility] 6+ MO Branch Influenza Virus 2020-08-12 Completed Universit y of Vaccine [place] .5 mL IM 00:00:00 [facility] 6+ MO Branch Influenza Virus 2020-08-12 Completed Universit y of Vaccine [place] .5 mL IM 00:00:00 [facility] 6+ MO Branch Influenza Virus 2020-08-12 Completed Universit y of Vaccine [place] .5 mL IM 00:00:00 [facility] 6+ MO Branch Influenza Virus 2020-08-12 Completed Universit y of Vaccine [place] .5 mL IM 00:00:00 [facility] [facility] 6+ MO Branch Influenza Virus 2020-08-12 Completed Universit y of Vaccine [place] .5 mL IM 00:00:00 [facility] 6+ MO Branch Influenza Virus 2020-08-12 Completed Universit y of Vaccine [place] .5 mL IM 00:00:00 [facility] 6+ MO Branch Influenza Virus 2020-08-12 Completed Universit y of Vaccine [place] .5 mL IM 00:00:00 [facility] 6+ MO Branch Influenza Virus 2019-09-13 Completed Universit y of Vaccine [place] .5 mL IM 00:00:00 [facility] 6+ MO Branch Influenza Virus 2019-09-13 Completed Universit y of Vaccine [place] .5 mL IM 00:00:00 [facility] 6+ MO Branch Influenza Virus 2019-09-13 Completed Universit y of Vaccine [place] .5 mL IM 00:00:00 [facility] [facility] 6+ MO Branch Influenza Virus 2019-09-13 Completed Universit y of Vaccine [place] .5 mL IM 00:00:00 [facility] 6+ MO Branch Influenza Virus 2019-09-13 Completed Universit y of Vaccine [place] .5 mL IM 00:00:00 [facility] 6+ MO Branch Influenza Virus 2019-09-13 Completed Universit y of Vaccine [place] .5 mL IM 00:00:00 [facility] 6+ MO Branch Influenza Virus 2019-09-13 Completed Universit y of Vaccine [place] .5 mL IM 00:00:00 [facility] 6+ MO Branch Influenza Virus 2019-09-13 Completed Universit y of Vaccine [place] .5 mL IM 00:00:00 [facility] [facility] 6+ MO Branch Influenza Virus 2019-09-13 Completed Universit y of Vaccine [place] .5 mL IM 00:00:00 [facility] 6+ MO Branch Influenza Virus 2019-09-13 Completed Universit y of Vaccine [place] .5 mL IM 00:00:00 [facility] 6+ MO Branch Influenza Virus 2019-09-13 Completed Universit y of Vaccine [place] .5 mL IM 00:00:00 [facility] 6+ MO Branch Influenza Virus 2019-09-13 Completed Universit y of Vaccine [place] .5 mL IM 00:00:00 [facility] 6+ MO Branch Influenza Virus 2019-09-13 Completed Universit y of Vaccine [place] .5 mL IM 00:00:00 [facility] 6+ MO Branch Influenza Virus 2019-09-13 Completed Universit y of Vaccine Quad .5 mL IM 00:00:00 [facility] 6+ MO Branch Influenza Virus 2019-09-13 Completed Universit y of Vaccine Quad .5 mL IM 00:00:00 [facility] 6+ MO Branch Influenza Virus 2019-09-13 Completed Universit y of Vaccine Quad .5 mL IM 00:00:00 [facility] 6+ MO Branch Influenza Virus 2019-09-13 Completed Universit y of Vaccine Quad .5 mL IM 00:00:00 [facility] 6+ MO Branch HEPATITIS A 2012-06-27 Completed University of 00:00:00 [facility] HPV 2012-06-27 Completed University of 00:00:00 [facility] Meningococcal 2012-06-27 Completed University of Polysaccharide 00:00:00 [place] [facility]i carolyne (groups A, C, Y and Branc h W-135) conjugate vaccine (MCV4P) TDAP 2012-06-27 Completed University of 00:00:00 [facility] Varicella 2012-06-27 Completed University of (varivax)(chicken 00:00:00 [place] M edical pox) Branch HEPATITIS A 2012-06-27 Completed University of 00:00:00 [facility] HPV 2012-06-27 Completed University of 00:00:00 [facility] Meningococcal 2012-06-27 Completed University of Polysaccharide 00:00:00 [facility] carolyne (groups A, C, Y and Branc h W-135) conjugate vaccine (MCV4P) TDAP 2012-06-27 Completed University of 00:00:00 [facility] Varicella 2012-06-27 Completed University of (varivax)(chicken 00:00:00 [place] M edical pox) Branch DTaP, Unspecified 2004-03-31 Completed Univers ity of Formulation 00:00:00 [facility] MMR 2004-03-31 Completed University of 00:00:00 [facility] IPV 2004-03-31 Completed University of 00:00:00 [facility] Polio (IPV/OPV) 2004-03-31 Completed Universit y of 00:00:00 [place] [facility] DTaP, Unspecified 2004-03-31 Completed Univers ity of Formulation 00:00:00 [facility] MMR 2004-03-31 Completed University of 00:00:00 [facility] IPV 2004-03-31 Completed University of 00:00:00 [facility] Polio (IPV/OPV) 2004-03-31 Completed Universit y of 00:00:00 [facility] DTaP, Unspecified 2000-09-20 Completed Univers ity of Formulation 00:00:00 [facility] HIB 4 Dose Schedule 2000-09-20 Completed Unive rsity of 00:00:00 [facility] MMR 2000-09-20 Completed University of 00:00:00 [facility] DTaP, Unspecified 2000-09-20 Completed Univers ity of Formulation 00:00:00 [facility] HIB 4 Dose Schedule 2000-09-20 Completed Unive rsity of 00:00:00 [facility] MMR 2000-09-20 Completed University of 00:00:00 [facility] IPV 1999 Completed University of 00:00:00 [facility] Varicella 1999 Completed University of (varivax)(chicken 00:00:00 [facility] edical pox) Branch Polio (IPV/OPV) 1999 Completed Universit y of 00:00:00 [facility] IPV 1999 Completed University of 00:00:00 [facility] Varicella 1999 Completed University of (varivax)(chicken 00:00:00 [facility] edical pox) Branch Polio (IPV/OPV) 1999 Completed Universit y of 00:00:00 [facility] Hep B, Adol or Pedi 1999-06-30 Completed Unive rsity of Dosage 00:00:00 [facility] Hep B, Adol or Pedi 1999-06-30 Completed Unive rsity of Dosage 00:00:00 [facility] DTaP, Unspecified 1999-04-23 Completed Univers ity of Formulation 00:00:00 [facility] HIB 4 Dose Schedule 1999-04-23 Completed Unive rsity of 00:00:00 [facility] DTaP, Unspecified 1999-04-23 Completed Univers ity of Formulation 00:00:00 [facility] HIB 4 Dose Schedule 1999-04-23 Completed Unive rsity of 00:00:00 [place] [facility] DTaP, Unspecified 1999-02-11 Completed Univers ity of Formulation 00:00:00 [facility] HIB 4 Dose Schedule 1999-02-11 Completed Unive rsity of 00:00:00 [facility] IPV 1999-02-11 Completed University of 00:00:00 [facility] Polio (IPV/OPV) 1999-02-11 Completed Universit y of 00:00:00 [facility] Branch DTaP, Unspecified 1999-02-11 Completed Univers ity of Formulation 00:00:00 [facility] HIB 4 Dose Schedule 1999-02-11 Completed Unive rsity of 00:00:00 [facility] Branch IPV 1999-02-11 Completed University of 00:00:00 [facility] Polio (IPV/OPV) 1999-02-11 Completed Universit y of 00:00:00 [facility] DTaP, Unspecified 1998 Completed Univers ity of Formulation 00:00:00 [facility] HIB 4 Dose Schedule 1998 Completed Unive rsity of 00:00:00 [facility] IPV 1998 Completed University of 00:00:00 [facility] Polio (IPV/OPV) 1998 Completed Universit y of 00:00:00 [facility] DTaP, Unspecified 1998 Completed Univers ity of Formulation 00:00:00 [facility] HIB 4 Dose Schedule 1998 Completed Unive rsity of 00:00:00 [facility] IPV 1998 Completed University of 00:00:00 [facility] Polio (IPV/OPV) 1998 Completed Universit y of 00:00:00 [facility] Hep B, Adol or Pedi 1998 Completed Unive rsity of Dosage 00:00:00 [facility] Hep B, Adol or Pedi 1998 Completed Unive rsity of Dosage 00:00:00 [facility] Hep B, Adol or Pedi 1998 Completed Unive rsity of Dosage 00:00:00 [facility] Hep B, Adol or Pedi 1998 Completed Unive rsity of Dosage 00:00:00 [facility] Vital Signs Vital Name Observation Time Observation Value Comments Source Systolic blood 2023-04-19 21:06:00 99 mm[Hg] Univer sity of pressure [place] [facility] Diastolic blood 2023-04-19 21:06:00 67 mm[Hg] Unive rsity of pressure [place] [facility] Heart rate 2023-04-19 21:06:00 75 /min Universi ty of [place] [facility] Body temperature 2023-04-19 21:06:00 36.78 [place] [facility] ers[facility] [place] [facility] Respiratory rate 2023-04-19 21:06:00 18 /min Univ ersity of [place] [facility] Body height 2023-04-19 21:06:00 152.4 cm Universi ty of [place] [facility] Body weight 2023-04-19 21:06:00 76.567 kg Universi ty of [place] [facility] BMI 2023-04-19 21:06:00 32.97 kg/m2 [facility] Systolic blood 2023-01-22 20:16:00 101 mm[Hg] [facility] Diastolic blood 2023-01-22 20:16:00 70 mm[Hg] [facility] Heart rate 2023-01-22 20:16:00 64 /min [facility] Body temperature 2023-01-22 20:16:00 36.56 Samara [facility] Respiratory rate 2023-01-22 20:16:00 18 /min [facility] Body height 2023-01-22 20:16:00 152.4 cm [facility] Body weight 2023-01-22 20:16:00 77.293 kg [facility] BMI 2023-01-22 20:16:00 33.28 kg/m2 [facility] Systolic blood 2022-10-30 21:47:00 103 mm[Hg] [facility] Diastolic blood 2022-10-30 21:47:00 71 mm[Hg] [facility] Heart rate 2022-10-30 21:47:00 76 /min [facility] Body temperature 2022-10-30 21:47:00 36.67 Samara [facility] Respiratory rate 2022-10-30 21:47:00 18 /min [facility] Body height 2022-10-30 21:47:00 157.5 cm [facility] Body weight 2022-10-30 21:47:00 74.39 kg [facility] BMI 2022-10-30 21:47:00 30.00 kg/m2 [facility] Systolic blood 2022-08-20 20:16:00 106 mm[Hg] [facility] Diastolic blood 2022-08-20 20:16:00 75 mm[Hg] Unive rsity of pressure [facility] Heart rate 2022-08-20 20:16:00 80 /min [facility] [place] [facility] [place] Body height 2022-08-20 20:16:00 157.5 cm [facility] [place] Body weight 2022-08-20 20:16:00 71.895 kg [facility] [place] BMI 2022-08-20 20:16:00 28.99 kg/m2 [facility] [place] Oxygen saturation in 2022-08-20 20:16:00 99 /min [facility] of Arterial blood by [facility] Pulse oximetry Branch Systolic blood 2022-08-07 19:35:00 105 mm[Hg] [facility] Diastolic blood 2022-08-07 19:35:00 74 mm[Hg] Unive rsity of pressure [facility] Heart rate 2022-08-07 19:35:00 65 /min [facility] [place] Body temperature 2022-08-07 19:35:00 36.72 Samara [facility] Respiratory rate 2022-08-07 19:35:00 17 /min Univ ersity of [facility] Body height 2022-08-07 19:35:00 165.1 cm [facility] Body weight 2022-08-07 19:35:00 70.489 kg [facility] BMI 2022-08-07 19:35:00 25.86 kg/m2 [facility] Systolic blood 2022-07-30 18:21:00 107 mm[Hg] [facility] Diastolic blood 2022-07-30 18:21:00 74 mm[Hg] Unive rsity of pressure [facility] Heart rate 2022-07-30 18:21:00 60 /min [facility] [place] Body height 2022-07-30 18:21:00 152.4 cm [facility] [place] Body weight 2022-07-30 18:21:00 70.67 kg [facility] [place] BMI 2022-07-30 18:21:00 30.43 kg/m2 [facility] of [facility] Oxygen saturation in 2022-07-30 18:21:00 99 /min [facility] Arterial blood by [facility] Pulse oximetry Branch Systolic blood 2022-07-15 20:00:00 133 mm[Hg] Univer [facility]ity of [facility] Diastolic blood 2022-07-15 20:00:00 88 mm[Hg] Unive rsity of [facility] Heart rate 2022-07-15 20:00:00 62 /min Universi [facility] of [facility] Body temperature 2022-07-15 20:00:00 37.22 Samara [facility] Body height 2022-07-15 20:00:00 152.4 cm [facility] Body weight 2022-07-15 20:00:00 71.033 kg [facility] BMI 2022-07-15 20:00:00 30.58 [facility] Procedures Procedure Date / Time Performing Clinician Source Performed [facility] PATIENT FINANCIAL 2023-01-22 19:51:39 Doctor Unassigned, No [facility] POLICY Name [facility] PHYSICIAN CERTIFICATION 2022-12-24 06:01:00 Doctor Unassigned, N o [facility] STATEMENT Name [facility] POCT TEST 2022-07-15 00:00:00 Elisa Bangura [facility] Encounters Start End Encounter Admission Attending Care Care Encounter Source Date/Time Date/Time Type Type Clinicians Facility Department ID 2021-09-06 Outpatient P [facility] [id number] [facility] P [facility] [id number] Univers 21:41:41 ity of [facility] 2021-09-06 Outpatient P [facility] [id number] Univers 08:03:12 [facility] 2021-09-06 Outpatient P [facility] YAA [id number] Univers 08:02:49 ity [facility] 2023-07-15 2023-07-15 Outpatient R WILLEM [facility] [id number] Univers 14:45:00 14:45:00 ELISA dennis [facility] 2023-07-15 2023-07-15 Outpatient R [facility] [id number] Univers 14:45[facility]00 [facility]45[facility]23-05-03 2023-05-03 Outpatient R [facility] [id number] Univers 14:45:00 14:45:00 [facility] 2023-04-19 2023-04-19 Nurse Nurse, [facility] 1.2.840.114 [id number] Univers 15:30:00 15:45:00 Visit Elisa Bangura 350.1.13.10 ity [facility] [place] [phone] Or dical [address] 2023-04-19 2023-04-19 Outpatient R [facility] [id number] Univers 15:30:00 15:30:00 [facility] 2023-04-07 2023-04-07 Telephone Ana RICCI 1.2.840.114 [id number] Univers 00:00:00 00:00:00 , Marcelle MAYES 350.1.13.10 ity [place] [phone] [address] 2023-01-22 2023-01-22 Outpatient R [facility] [id number] Univers 15:00:00 15:16:09 ELISA [facility] 2023-01-22 2023-01-22 Nurse Nurse, [facility] 1.2.840.114 [id number] Univers 15:00:00 15:16:09 Visit Elisa Bangura 350.1.13.10 ity [facility] [place] [phone] Or dical NAL [address] [place] [address] 2023-01-22 2023-01-22 Orders Doctor EFRA 1.2.840.114 [id number] Univers 00:00:00 00:00:00 Only Unassigned, MILAD 350.1.13.10 ity of [place] [facility] 4.2.7.2.686 Indra as [phone] [address] 2022-12-24 2022-12-24 Orders Doctor EFRA 1.2.840.114 [id number] Univers 00:00:00 00:00:00 Only Unassigned, MILAD 350.1.13.10 ity of [place] [facility] 4.2.7.2.686 Indra as [phone] [address] 2022-11-27 2022-11-27 Telephone Hunter Blankenship [facility] 1.2.840.114 [id number] Univers 00:00:00 00:00:00 Den RUELAS 350.1.13.10 i ty [place] [phone] Or dic[address] 2022-10-30 2022-10-30 Outpatient R [facility] [id number] Univers 15:00:00 15:48:14 [facility] 2022-10-30 2022-10-30 Nurse Nurse, [facility] 1.2.840.114 [id number] Univers 15:00:00 15:48:14 Visit Elisa Bangura 350.1.13.10 ity of [place] [phone] Or dical NAL [address] [place] [address] 2022-08-20 2022-08-20 Outpatient R HÉCTOR [facility] [id number] Univers 15:30:00 15:32:49 [facility] 2022-08-20 2022-08-20 Office Héctor [facility] 1.2.840.114 [id number] Univers 15:30:00 15:32:49 Visit Duane S HEALTH 350.1.13.10 it y of [place] 4.2.7.2.686 Indra as VÍCTOR?BLEA [phone] Or gm CHAUDHARI 198 [facility] OFFICE [facility] 2022-08-10 2022-08-10 Outpatient R HÉCTOR [facility] [id number] Univers 15:30:00 15:30:00 DUANE ity of [facility] 2022-08-07 2022-08-07 Outpatient R HUNTER [facility] [id number] Univers 14:30:00 14:35:10 ity of [facility] 2022-08-07 2022-08-07 Nurse Nurse, [facility] 1.2.840.114 [id number] Univers 14:30:00 14:35:10 Visit Hunter Blankenship 350.1.13.10 ity of [place] PROFESSMARLENE [phone] Or ebttydixon AGRAWAL [address] [facility] 2022-08-06 2022-08-06 Patient Doctor [facility] 1.2.840.114 [id number] Univers 00:00:00 00:00:00 Secure Msg Unassigned, HEALTH 350.1.13.10 ity of [place] 4.2.7.2.686 Indra as VÍCTOR?BLEA [phone] Or gm CHAUDHARI 044 [facility] OFFICE [facility] 2022-07-30 2022-07-30 Outpatient [facility] [id number] Univers 13:45:00 23:59:00 YAZMIN ity of [facility] 2022-07-30 2022-07-30 Office [facility] 1.2.840.114 [id number] Univers 13:00:00 13:46:26 Visit Yazmin HEALTH 350.1.13.10 it y of [place] 4.2.7.2.686 Indra as VÍCTOR?BLEA [phone] Or gm CHAUDHARI 044 [facility] OFFICE [facility] 2022-07-30 2022-07-30 Letter [facility] 1.2.840.114 [id number] Univers 00:00:00 00:00:00 (Out) Yazmin HEALTH 350.1.13.10 it y of [place] 4.2.7.2.686 Indra as VÍCTOR?BLEA [phone] Or dical WATSON 044 [facility] 2022-07-15 2022-07-15 Proposal Coordinator 2, [facility] Lab [facility] 1.2.840.114 [id number] Univers 15:45:00 16:00:00 Visit Elisa Bangura 350.1.13.10 ity [place] [phone] Or dical NAL [address] [facility] 2022-07-15 2022-07-15 [facility] [id number] Univers 15:45:00 15:45:00 ELISA ity [facility] 2022-07-15 2022-07-15 Office [facility] 1.2.147.965 [id number] Univers 15:00:00 15:34:26 Visit Elisa RUELAS 350.1.13.10 i ty [facility] [place]7.[place] [phone] Or dical NAL [address] [facility] 2022-07-15 2022-07-15 Outpatient R [facility]ILLEM [facility] [id number] Univers 15:00:00 15:34:26 [place] ity [facility] 2022-07-15 2022-07-15 Orders Doctor EFRA 1.2.840.114 [id number] Univers 00:00:00 00:00:00 Only Unassigned, MILAD 350.1.13.10 ity of [place] [facility] 4.2.7.2.686 Indra as [phone] [address] 2022-05-15 2022-05-15 Outpatient R [facility] [id number] Univers 14:30:00 14:36:07 ity of [facility] 2022-05-15 2022-05-15 Nurse Nurse, [facility] Women's Health [facility] 1.2.840.114 [id number] Univers 14:30:00 14:36:07 Visit Hunter Blankenship 350.1.13.10 ity [facility] 4.2.7.2.[place] [phone] Or dical NAL [address] [facility] 2022-03-20 2022-03-20 Outpatient R RITA [facility] [id number] Univers 15:20:00 15:20:00 [facility]22-02-20 2022-02-20 Outpatient R ADRIANA SANDY [facility] [id number] Univers 14:00:00 14:42:25 ADRIANA SANDY [facility] 2022-02-20 2022-02-20 Office Danilo [facility] 1.2.840.114 [id number] Univers 14:00:00 14:42:25 Visit Adriana RUELAS 350.1.13.10 ity [facility] [place] [phone] [facility] 044 [facility] 2022-02-20 2022-02-20 Nurse Nurse, [facility] 1.2.840.114 [id number] Univers 08:00:00 13:53:03 Visit Hunter Blankenship 350.1.13.10 ity of [place] [phone] Or dical NAL [address] [facility] 2021-11-28 2021-11-28 Outpatient R [facility] [id number] Univers 10:30:00 10:57:47 ity [facility] 2021-11-28 2021-11-28 Nurse Nurse, [facility] 1.2.840.114 [id number] Univers 10:30:00 10:57:47 Visit Hunter Blankenship 350.1.13.10 ity of [place] [phone] Or dical NAL [address] [facility] 2021-11-21 2021-11-21 Outpatient R HNUTER BLANKENSHIP [facility] [id number] Univers 15:30:00 15:30:00 ity [facility] 2021-08-27 2021-08-27 Nurse Nurse, [facility] 1.2.840.114 [id number] Univers 15:36:01 15:55:47 Visit Elisa Bangura 350.1.13.10 ity of [place].2.[place] [phone] Or dic[address] 2021-08-27 2021-08-27 Outpatient R [facility] [id number] Univers 15:30:00 15:30:00 ity of [facility] 2021-08-27 2021-08-27 Orders Doctor EFRA 1.2.840.114 [id number] Univers 00:00:00 00:00:00 Only Unassigned, MILAD 350.1.13.10 ity of [facility] 4.2.7.2.686 Indra as [phone] [address] 2021-07-09 2021-07-09 [facility] [id number] Univers 15:30:00 15:30:00 [facility] 2021-07-09 2021-07-09 Office Willem [facility] 1.2.488.108 [id number] Univers 14:59:28 15:29:28 Visit Elisa Ruelas 350.1.13.10 i ty of [place].2.[place] [phone] [address] 2021-06-04 2021-06-04 Nurse Nurse, [facility] 1.2.840.114 [id number] Univers 15:31:05 16:35:07 Visit Hunter Blankenship 350.1.13.10 ity of [place].2.[place] [phone] Or dical [address] 2021-06-04 2021-06-04 Outpatient R [facility] [id number] Univers 15:30:00 15:30:00 ity [facility] 2021-06-04 2021-06-04 Orders Doctor KRAUS 1.2.840.114 [id number] Univers 00:00:00 00:00:00 Only Unassigned, MILAD 350.1.13.10 ity of [place] [facility] 4.2.7.2.686 Indra as [phone] [address] 2021-06-03 2021-06-03 Telephone Hunter Blankenship [facility] 1.2.840.114 [id number] Univers 00:00:00 00:00:00 Cam Jessenia 350.1.13.10 i ty [place] [phone] Or dical nal 134 [facility] 2021-05-13 2021-05-13 Telephone Kemi [facility] 1.2.840.114 [id number] Univers 00:00:00 00:00:00 Wondiful [facility] 350.1.13.10 ity of [place] 4.2.7.2.686 Indra as Professio [phone] [facility] [address] [place] Office [facility] One 2021-05-11 2021-05-11 Case [facility] 1.2.840.114 [id number] Univers 00:00:00 00:00:00 Management Wondiful [facility] 350.1.13.10 ity of [place] 4.2.7.2.686 Indra as Professio [phone] [facility] 044 [facility] 2021-05-09 2021-05-09 Proposal Coordinator 2, Adc Lab [facility] 1.2.840.114 [id number] Univers 08:55:31 09:10:31 Visit Elisa Bangura 350.1.13.10 ity of [place]2.[place] [phone] [facility] 353 [facility] 2021-05-09 2021-05-09 Outpatient R WILLEM [facility] [id number] Univers 09:00:00 09:00:00 ELISA itdennis of [facility] 2021-05-06 2021-05-06 Telephone Willem [facility] 1.2.840.114 [id number] Univers 00:00:00 00:00:00 Elisa Ruelas 350.1.13.10 i ty of [place]2.[place] [phone] Or dical nal [address] [facility] 2021-04-28 2021-04-28 Telephone Willem [facility] 1.2.840.114 [id number] Univers 00:00:00 00:00:00 Elisa Ruleas 350.1.13.10 i ty of [place].2.[place] [phone] Or dical nal 134 [facility] 2021-04-09 2021-04-09 Outpatient R JOLEEN [facility] [id number] Univers 13:00:00 13:00:00 SENDIL [facility] 2021-03-17 2021-03-17 Office Joleen [facility] 1.2.840.114 [id number] Univers 14:53:00 15:23:57 Visit Kenn Ruelas 350.1.13.10 ity [facility] [place].2.7.2.[place] [phone] [facility] 059 [facility] 2021-03-17 2021-03-17 Outpatient R JOLEEN [facility] [id number] Univers 15:00:00 15:00:00 [facility] 2021-03-11 2021-03-11 Nurse Nurse, [facility] 1.2.840.114 [id number] Univers 14:51:35 15:06:35 Visit Elisa Bangura 350.1.13.10 ity [facility] 4.2.7.2.[place] [phone] Or dical nal [address] [facility] 2021-03-11 2021-03-11 Outpatient R [facility] [id number] Univers 15:00:00 15:00:00 ity of [facility] 2021-03-11 2021-03-11 Orders Doctor KRAUS 1.2.840.114 [id number] Univers 00:00:00 00:00:00 Only Unassigned, MILAD 350.1.13.10 ity of [place] [facility] 4.2.7.2.686 Indra as [phone] [place] [address] [place] 2021-02-14 2021-02-14 Office [facility] 1.2.840.114 [id number] Univers 14:36:37 16:17:35 Visit Wondiful A Health 350.1.13.10 ity of [place] 4.2.7.2.686 Indra as Professio [phone] Or dical nal [address] [place] [address] One 2021-02-14 2021-02-14 [facility] [id number] Univers 14:30:00 14:30:00 WONDIFUL ity o f [facility] 2021-01-06 2021-01-06 Routine Pattie [facility] 1.2.538.984 [id number] Univers 14:53:10 16:13:11 Cam Jessenia 350.1.13.10 ity of [place].2.[place] [phone] Or dical nal [address] [facility] 2021-01-06 2021-01-06 Outpatient R HUNTER BL[facility]ENSHIP [facility] [id number] Univers 15:00:00 15:00:00 ity of [facility] 2020-12-17 2020-12-17 Outpatient R PATTIE [facility] [id number] Univers 16:15:00 16:15:00 ity of [facility] 2020-12-17 2020-12-17 Outpatient R [facility] [id number] Univers 16:00:00 16:00:00 ity of [facility] 2020-12-12 2020-12-15 Hospital Hunter Blankenship [facility] 1.2.840.114 [id number] Univers 18:52:00 12:35:00 Encounter Cam Jessenia 350.1.13.10 ity [place] [facility] [phone] [facility] [address] [place] 2020-12-11 2020-12-12 [facility] 1.2.840.114 [id number] Univers 17:54:00 02:45:00 Encounter Carolyn Ruelas 350.1.13.10 ity of [place]2.7.2.[place] [facility] [phone] [facility] [address] [place] 2020-12-09 2020-12-09 Routine Hunter Blankenship [facility] 1.2.243.208 [id number] Univers 16:06:07 16:21:07 Den Jessenia 350.1.13.10 ity of [place] 4.[place].2.[place] [phone] [address] 2020-12-09 2020-12-09 Outpatient R HUNTER [facility]SH[facility] [id number] Univers 16:15:00 16:15:00 ity of [facility] 2020-12-09 2020-12-09 Orders Doctor EFRA 1.2.840.114 [id number] Univers 00:00:00 00:00:00 Only Unassigned, MILAD 350.1.13.10 ity of [place] [facility] 4.2.7.2.686 Indra as [phone] [facility] [address] [place] 2020-11-21 2020-11-21 Routine [facility] 1.2.147.217 [id number] Univers 16:04:44 16:19:44 Elisa Ruelas 350.1.13.10 ity of [place].2.[place] [phone] [address] 2020-11-21 2020-11-21 Outpatient R WILLEM [facility] [id number] Univers 16:15:00 16:15:00 ELISA helton [facility] 2020-11-18 2020-11-18 Telephone [facility] 1.2.840.114 [id number] Univers 00:00:00 00:00:00 Elisa Ruelas 350.1.13.10 i ty of [place].2.[place] [phone] [address] 2020-11-07 2020-11-07 Outpatient R WILLEM [facility] [id number] Univers 16:15:00 16:15:00 ELISA itdennis [facility] 2020-11-07 2020-11-07 Routine Hunter Blankenship [facility] 1.2.840.114 [id number] Univers 12:52:16 13:32:28 Elisa Bangura Jessenia 350.1.13.10 ity of [place].2.[place] [phone] Or dical nal [address] [facility] 2020-10-24 2020-10-24 Routine Hunter Blankenship [facility] 1.2.814.425 [id number] Univers 14:42:53 15:48:59 Den Ruelas 350.1.13.10 ity of [place] 4.2.7.2.[place] [phone] Or dical nal [address] [facility] 2020-10-24 2020-10-24 Outpatient R H[facility]TER [facility]SH[facility] [id number] Univers 14:45:00 14:45:00 ity of [facility] 2020-10-09 2020-10-09 Routine [facility] 1..699.253 [id number] Univers 14:09:45 14:24:45 Elisa Jessenia 350.1.13.10 ity of [place].2.[place] [phone] Or dical nal [address] [place] [address] 2020-10-09 2020-10-09 Outpatient R GARRETCHUCKKOURTNEY [facility] [id number] Univers 13:30:00 13:30:00 ELISA ity of [facility] 2020-10-09 2020-10-09 Proposal Coordinator 2, Adc Lab [facility] 1.2.840.114 [id number] Univers 13:06:42 13:21:42 Visit Hunter Blankenship 350.1.13.10 ity of [place] 4.2.[place].2.[place] [phone] Or dical nal [address] [facility] 2020-10-06 2020-10-06 [facility] 1.2.840.114 [id number] Univers 13:56:00 16:35:00 Encounter Carolyn Ruelas 350.1.13.10 ity of [place]2.[place].2.[place] [phone] [facility] [address] [place] [address] 2020-09-16 2020-09-16 Outpatient P SUNSHINEANTONI [facility] [id number] Univers 13:45:00 13:45:00 ity of [facility] 2020-09-16 2020-09-16 Telemedici Goldie Arenas [facility] 1.2.8 40.114 [id number] Univers 09:27:27 09:42:27 ne Visit Antoni Walls Dina VECTOR CONTROL ASSISTANT 350.1.13.10 ity of REGIONAL 4.2.7.2.686 Indra as MATERNAL [phone] Med ical & CHILD 124 [facility] 2020-09-09 2020-09-09 Routine Pattie [facility] 1.2.353.429 [id number] Univers 15:28:55 16:02:46 Den Ruelas 350.1.13.10 ity of [place].2.[place] Professmarlene [phone] Or dical [address] 2020-09-09 2020-09-09 Outpatient R HUNTER [facility]ANKENSHIP [facility] [id number] Univers 15:30:00 15:30:00 ity [facility] 2020-08-20 2020-08-20 Proposal Coordinator [id number] .[id number] Univers 12:58:15 14:13:15 Visit Lm Buck VECTOR CONTROL ASSISTANT [id number] ity of REGIONAL [id number] Indra as MATERNAL [phone] Med ical & CHILD [address] [place] [address] 2020-08-20 2020-08-20 Outpatient P [facility] [id number] Univers 13:00:00 13:00:00 ity [facility] 2020-08-12 2020-08-12 Routine Willem [facility] [id number] Univers 14:30:44 14:45:44 Elisa Ruelas [id number] ity of Visit [id number] Professmarlene [phone] Or dical nal [address] [place] [address] 2020-08-12 2020-08-12 Outpatient R WILLEM [facility] [id number] Univers 14:30:00 14:30:00 ELISA ity [facility] 2020-07-16 2020-07-16 Proposal Coordinator 2, Adc Lab [facility] 1.2.840.114 [id number] Univers 15:16:02 15:31:02 Visit Hunter Blankenship [place] 350.1.13.10 ity of [place] [id number] Profess[place] [phone] Or dical nal 353 [facility] 2020-07-16 2020-07-16 Routine Pattie [facility] [id number] Univers 13:50:36 15:02:36 Cam [place] [id number] [id number] [phone] Or dical nal 134 [facility] 2020-07-16 2020-07-16 Outpatient R HUNTER BLANKENSHIP [facility] [id number] Univers 13:45:00 13:45:00 ity of [facility] 2020-06-21 2020-06-21 Telephone Hunter Blankenship [facility] [id number] Univers 00:00:00 00:00:00 Cam Eldridge [id number] [id number] [phone] Or dical nal [address] [place] [address] 2020-06-20 2020-06-20 Telephone Hunter Blankenship [facility] [id number] Univers 00:00:00 00:00:00 Cam Eldridge [id number] [id number] [phone] Or dical nal [address] [place] [address] 2020-06-18 2020-06-18 Telephone Hunter Blankenship [facility] [id number] Univers 00:00:00 00:00:00 Cam Eldridge [id number] [id number] [phone] Or dical nal [address] [place] [address] 2020-06-12 2020-06-12 Outpatient R [facility] [id number] Univers 10:30:00 10:30:00 ity of [facility] 2020-06-12 2020-06-12 Orders Doctor EFRA 1.2.840.114 [id number] Univers 00:00:00 00:00:00 Only Unassigned, MILAD [id number] ity of [facility] [id number] Indra as [phone] [address] 2020-06-11 2020-06-11 Routine Hunter Blankenship [facility] [id number] Univers 15:16:46 16:09:17 Cam Eldridge [id number] ity [id number] [phone] Or dical nal 134 [facility] 2020-06-11 2020-06-11 Outpatient R [facility] [id number] Univers 15:30:00 15:30:00 ity of [facility] 2020-06-11 2020-06-11 Proposal Coordinator 2, Adc Lab [facility] 1.2.840.114 [id number] Univers 15:02:35 15:17:35 Visit Hunter Blankenship [id number] [id number] [phone] Or dical nal 353 [facility] 2020-05-14 2020-05-14 Initial Hunter Blankenship [facility] [id number] Univers 13:57:03 14:27:03 Cam Eldridge [id number] ity of [id number] [phone] Or dical nal 134 [facility] 2020-05-14 2020-05-14 Outpatient R HUNTER BLANKENSHIP [facility] [id number] Univers 14:00:00 14:00:00 ity of [facility] 2020-05-14 2020-05-14 Orders Doctor KRAUS 1.2.840.114 [id number] Univers 00:00:00 00:00:00 Only Unassigned, MILAD [id number] ity of [facility] [id number] Indra as [phone] [address] 2020-03-20 2020-03-20 Outpatient R [facility] [id number] Univers 14:30:00 14:30:00 ity of [facility] 2020-01-02 2020-01-02 Telephone Willem [facility] 1.2.840.114 [id number] Univers 00:00:00 00:00:00 Elisa Ruelas [id number] [id number] [phone] [address] 2019-12-20 2019-12-20 Office Willem [facility] [id number] Univers 14:57:43 15:33:36 Visit Elisa Ruelas [id number] [id number] [phone] [address] 2019-12-20 2019-12-20 [facility] [id number] Univers 14:30:00 15:00:00 Visit Elisa Ruelas [id number] i [id number] [phone] [address] 2019-12-20 2019-12-20 Orders Doctor EFRA 1.2.840.114 [id number] Univers 00:00:00 00:00:00 Only Unassigned, MILAD [id number] ity of [facility] [id number] [place] as [phone] [address] 2019-06-12 2019-06-12 Nurse Nurse, [facility] 1.2.840.114 [id number] Univers 14:07:50 14:29:25 Visit Elisa Bangura [id number] [id number] [phone] [address] 2019-06-12 2019-06-12 Orders Doctor EFRA 1.2.840.114 [id number] Univers 00:00:00 00:00:00 Only Unassigned, MILAD [id number] ity of [place] [facility] [id number] Indra as [phone] [address] Results Test Description Test Time Test Comments Results Result Comments Source POCT TEST 2022-07-15 20:04:00 Test Item Value Reference Range Interpretation Comme nts POCT PREG (test code = 1605) Negative On board controls acceptable with C Line (test code = 3574) Yes POCT PREG LOT # (test code = 3575) PO[facility] PREG TEST DATE (test code = 3576[id number] 20:04:00 Test Item Value Reference Range Interpretation Comments POCT PREG (test code = 1605) Negative On board controls acceptable with C Yes Line (test code = 3574) POCT PREG LOT # (test code = 3575) POCT PREG TEST DATE (test code = 3576) [facility]
[2023-06-12] MEDS ORDERED: KETOROLAC 30 MG/ML INJ ONE (22:30)
[2023-06-12] MEDS ORDERED: ONDANSETRON 4 MG (ODT) TAB ONE (22:30)
[2023-06-12] MEDS ORDERED: CEFTRIAXONE 1000 MG/VIAL ONE (22:30)
[2023-06-12] MEDS ORDERED: ACETAMINOPHEN 325 MG TABLET ONE (22:30)
[2023-06-12] MEDS ORDERED: WATER FOR INJ,STERILE 10 ML ONE (22:31)
[2023-06-12 22:53] LABS: Specific Gravity 1.019 (1.005-1.030)
--- NOTE | 2023-06-12 23:03 | ER ---
Nurse's Notes [facility] Name: Lucy Charles Age: 22 yrs Sex: Female : 2000 Arrival Date: 06/12/2023 Time: 22:03 Bed 19 Private MD: Diagnosis: Acute tonsillitis, unspecified Presentation: 06/12 22:10 Chief complaint: Patient states: "MY THROAT FEELS CLOSING AND I HAVE PAIN IN BOTH HIPS. bp I THINK IT'S BECAUSE I MIGHT BE .". Coronavirus screen: At this time, the client does not indicate any symptoms associated with coronavirus-19. Ebola Screen: No symptoms or risks identified at this time. Initial Sepsis Screen: Does the patient meet any 2 criteria? No. Patient's initial sepsis screen is negative. Does the patient have a suspected source of infection? No. Patient's initial sepsis screen is negative. Risk Assessment: Do you want to hurt yourself or someone else? Patient reports no desire to harm self or others. Onset of symptoms is unknown. 22:10 Method Of Arrival: Ambulatory bp 22:10 Acuity: KERRI 4 bp Triage Assessment: 22:12 General: Appears in no apparent distress. Behavior is cooperative, appropriate for age, bp anxious. Pain: Complains of pain in neck. EENT: Reports difficulty swallowing pain when swallowing. Neuro: No deficits noted. Cardiovascular: No deficits noted. Respiratory: No deficits noted. GI: No signs and/or symptoms were reported involving the gastrointestinal system. : No signs and/or symptoms were reported regarding the genitourinary system. Derm: No deficits noted. Musculoskeletal: No deficits noted. Historical: - Allergies: 22:12 No Known Allergies; bp - Home Meds: 22:12 None [Active]; bp - PMHx: 22:12 None; bp - Immunization history:: Adult Immunizations up to date. - Social history:: Smoking status: Patient denies any tobacco usage or history of. - Family history:: not pertinent. Screenin:12 [facility] ED Fall Risk Assessment (Adult) History of falling in the last 3 months, ha1 including since admission No falls in past 3 months (0 pts) Confusion or Disorientation No (0 pts) Intoxicated or Sedated No (0 pts) Impaired Gait No (0 pts) Mobility Assist Device Used No (0 pt) Altered Elimination No (0 pt) Score/Fall Risk Level 0 - 2 = Low Risk Oriented to surroundings, Maintained a safe environment, Educated pt \\T\\ family on fall prevention, incl call for assistance when getting out of bed. Abuse screen: Denies threats or abuse. Has been threatened or abused. Nutritional screening: No deficits noted. Tuberculosis screening: No symptoms or risk factors identified. Assessment: 22:10 General: Appears comfortable, Behavior is calm, cooperative. Pain: Complains of pain in ha1 sore throat Pain does not radiate. Pain currently is 7 out of 10 on a pain scale. Quality of pain is described as pressure. 22:10 Neuro: Level of Consciousness is awake, alert, obeys commands, Oriented to person, ha1 place, time, situation. Cardiovascular: Patient's skin is warm and dry. Respiratory: Reports sore throat Airway is patent Respiratory effort is even, unlabored, Respiratory pattern is regular, symmetrical, Breath sounds are clear bilaterally. EENT: Throat is reddened. 23:11 Reassessment: Patient and/or family updated on plan of care and expected duration. Pain ha1 level reassessed. Patient is alert, oriented x 3, equal unlabored respirations, skin warm/dry/pink. Vital Signs: 22:10 BP 126 / 86; Pulse 70; Resp 16; Temp 98.2; Pulse Ox 100% ; Weight 70.76 kg; Height 5 bp ft. 0 in. ; 22:13 BP 127 / 83; Pulse 72; Resp 18 S; Pulse Ox 100% on R/A; ha1 22:10 Body Mass Index 30.47 (70.76 kg, 152.4 cm) bp ED Course: 22:06 Patient arrived in ED. mr 22:08 Jesse Grant MD is Attending Physician. sp4 22:10 Patient has correct armband on for positive identification. Placed in gown. Bed in low ha1 position. Call light in reach. Side rails up X 1. 22:12 Triage completed. bp 22:13 Arm band placed on. bp 22:14 Yissel Nichole, JOHN is Primary Nurse. ha1 23:13 Provided Education on: medication administration . ha1 23:13 No provider procedures requiring assistance completed. Patient did not have IV access ha1 during this emergency room visit. Administered Medications: 22:18 Drug: Rocephin (cefTRIAXone) IM 1 grams Route: IM; Site: right vastus lateralis; ha1 23:14 Follow up: Response: No adverse reaction ha1 22:20 Drug: Ketorolac IVP 30 mg {Note: given IM right deltoid .} Route: IVP; Site: Other; ha1 23:14 Follow up: Response: No adverse reaction ha1 22:25 Drug: Ondansetron PO 8 mg Route: PO; ha1 23:14 Follow up: Response: No adverse reaction; Nausea is decreased ha1 22:50 Drug: Acetaminophen PO 650 mg Route: PO; ha1 23:14 Follow up: Response: No adverse reaction; Pain is decreased ha1 Medication: 23:13 VIS not applicable for this client. ha1 Outcome: 23:02 Discharge ordered by . sp4 23:13 Discharged to home ambulatory, with family. ha1 23:13 Condition: stable 23:13 Discharge instructions given to patient, family, Instructed on discharge instructions, follow up and referral plans. medication usage, Demonstrated understanding of instructions, follow-up care, medications, Prescriptions given X 2. 23:15 Patient left the ED. ha1 Signatures: Kimmie Pacheco mr EspinosaGerardo, RN RN bp Yissel Nichole RN RN ha1 Jesse Grant MD MD sp4 Corrections: (The following items were deleted from the chart) 22:58 22:55 Ketorolac IVP 30 mg IVP in Other; given IM right deltoid ha1 ha1
--- NOTE | 2023-06-12 23:03 | EDPHYS ---
Physician Documentation [facility] Name: Lucy Charles Age: 22 yrs Sex: Female : 2000 Arrival Date: 06/12/2023 Time: 22:03 Bed 19 Private MD: ED Physician Jesse Grant HPI: 06/12 22:08 This 22 yrs old Female presents to ER via Unassigned with complaints of Sore sp4 Throat, Hip Pain. 22:59 22-year-old female presents with moderate to severe pain in her throat for the past 3 sp4 days associated with pain on swallowing. Also some body aches including bilateral hip pain. Patient denied any fever. . Historical: - Allergies: 22:12 No Known Allergies; bp - Home Meds: 22:12 None [Active]; bp - PMHx: 22:12 None; bp - Immunization history:: Adult Immunizations up to date. - Social history:: Smoking status: Patient denies any tobacco usage or history of. - Family history:: not pertinent. ROS: 22:59 Constitutional: Negative for fever, chills, and weight loss, Eyes: Negative for injury, sp4 pain, redness, and discharge, ENT: Negative for injury, positive for bilateral tonsillar pain, bilateral throat pain Neck: Negative for injury, pain, and swelling, Cardiovascular: Negative for chest pain, palpitations, and edema, Respiratory: Negative for shortness of breath, cough, wheezing, and pleuritic chest pain. 22:59 All other systems are negative. Exam: 22:59 Constitutional: This is a well developed, well nourished patient who is awake, alert, sp4 and in no acute distress. Head/Face: Normocephalic, atraumatic. Eyes: Pupils equal round and reactive to light, extra-ocular motions intact. Lids and lashes normal. Conjunctiva and sclera are not injected. Cornea within normal limits. Periorbital areas with no swelling, redness, or edema. ENT: Nares patent. No nasal discharge, no septal abnormalities noted. Tympanic membranes are normal and external auditory canals are clear. Bilateral pharyngeal redness bilateral tonsillar erythema bilateral tonsillar enlargement, streaky yellow exudates to bilateral tonsils Neck: Trachea midline, no thyromegaly or masses palpated, and no cervical lymphadenopathy. Supple, full range of motion without nuchal rigidity, or vertebral point tenderness. Chest/axilla: Normal chest wall appearance and motion. Nontender with no deformity. No lesions are appreciated. Cardiovascular: Regular rate and rhythm with a normal S1 and S2. No gallops, murmurs, or rubs. Normal PMI, no JVD. No pulse deficits. Respiratory: Lungs have equal breath sounds bilaterally, clear to auscultation and percussion. No rales, rhonchi or wheezes noted. No increased work of breathing, no retractions or nasal flaring. Abdomen/GI: Soft, non-tender, with normal bowel sounds. No distension or tympany. No guarding or rebound. No evidence of tenderness throughout. Back: No spinal tenderness. No costovertebral tenderness. Skin: Warm, dry with normal turgor. Normal color with no rashes, no lesions, and no evidence of cellulitis. MS/ Extremity: Pulses equal, no cyanosis. Neurovascular intact. Full, normal range of motion. Neuro: Awake and alert, GCS 15, oriented to person, place, time, and situation. Cranial nerves II-XII grossly intact. Motor strength 5/5 in all extremities. Sensory grossly intact. Psych: Awake, alert, with orientation to person, place and time. Behavior, mood, and affect are within normal limits Vital Signs: 22:10 BP 126 / 86; Pulse 70; Resp 16; Temp 98.2; Pulse Ox 100% ; Weight 70.76 kg; Height 5 bp ft. 0 in. ; 22:13 BP 127 / 83; Pulse 72; Resp 18 S; Pulse Ox 100% on R/A; ha1 22:10 Body Mass Index 30.47 (70.76 kg, 152.4 cm) bp MDM: 22:55 Patient medically screened. sp4 22:59 Differential diagnosis: bronchitis, cocksackie virus, echovirus infection, hunter-velasquez sp4 virus, gingivostomatitis, group A strep tonsillitis. Data reviewed: vital signs, nurses notes, lab test result(s), UPT: negative. ED course: Patient will be prescribed Zithromax p.o. and also high-dose ibuprofen. . 06/12 22:15 Order name: Test, Urine; Complete Time: 22:55 sp4 Administered Medications: 22:18 Drug: Rocephin (cefTRIAXone) IM 1 grams Route: IM; Site: right vastus lateralis; ha1 23:14 Follow up: Response: No adverse reaction ha1 22:20 Drug: Ketorolac IVP 30 mg {Note: given IM right deltoid .} Route: IVP; Site: Other; ha1 23:14 Follow up: Response: No adverse reaction ha1 22:25 Drug: Ondansetron PO 8 mg Route: PO; ha1 23:14 Follow up: Response: No adverse reaction; Nausea is decreased ha1 22:50 Drug: Acetaminophen PO 650 mg Route: PO; ha1 23:14 Follow up: Response: No adverse reaction; Pain is decreased ha1 Disposition Summary: 06/12/23 23:02 Discharge Ordered Location: Home sp4 Problem: new sp4 Symptoms: have improved sp4 Condition: Stable sp4 Diagnosis - Acute tonsillitis, unspecified sp4 Followup: sp4 - With: Private Physician - When: 7 - 10 days - Reason: Recheck today's complaints Discharge Instructions: - Discharge Summary Sheet sp4 - Tonsillitis sp4 Forms: - Patient Portal Instructions sp4 Prescriptions: - Ibuprofen 800 mg Oral Tablet - take 1 tablet by ORAL route every 8 hours As needed take with food; 30 tablet; sp4 Refills: 0, Product Selection Permitted - Zithromax Z-Ad 250 mg Oral Tablet - take 1 tablet by ORAL route as directed for 5 days Day 1 - take two (2) tablets sp4 one time. Day 2, 3, 4 , 5 take one (1) tablet once daily.; 6 tablet; Refills: 0, Product Selection Permitted Signatures: Dispatcher [employer] Gerardo Polk RN RN bp Ayala, Heidy, RN RN ha1 Jesse Grant MD MD sp4
[2023-06-12 23:29] VITALS: TEMP 98.2; O2SAT 100
[2023-06-12 23:30] VITALS: BP 127/83
== END 2023-06-12 23:15 | disposition home or self-care (01) ==
LOC: ER 22:03
DX: J03.90 Acute tonsillitis, unspecified (principal); M25.552 Pain in left hip; M25.551 Pain in right hip
CPT/HCPCS: 81025; 96372; 96374; 99284; Q0162; J0696

== ENCOUNTER → 2023-12-21 | Emergency (ER) | payer OTHER ==
[~2023-12-21] MED LIST: KETOROLAC 30 MG/ML INJ ONE; NA CHLORIDE 0.9% 1,000 ML ONE; ONDANSETRON 4 MG/2 ML VIAL ONE
--- OUTSIDE RECORDS SUMMARY | 2023-12-21 15:38 | XMS REPORT | Continuity of Care Document ---
Author Name Unknown Address [address] [facility] [address] [place] [address] [facility] Address [address] [place] [address] Care Team Providers Care Chief Load Dispatcher Name Role Phone YAZMIN MENCHACA Primary Care Physician Unavailab HUNTER Finney Attending Clinician Unavailable Nurse, [facility] Attending Clinician Un available Elisa Bangura PA-C Attending Clinician [phone] ELISA BANGURA Attending Clinician Unavailable Doctor Unassigned, [place] Attending Clinician U Hunter Saul MD Attending Clinician [phone] Marcelle Perez RN Attending Clinician Unav ailDUANE Ricks Attending Clinician Unavailable Duane Toney S Attending Clinician [phone] YAZMIN MENCHACA Attending Clinician Unavailable Yazmin Field Attending Clinician [phone], [facility] Attending Clinician Unavailable OSCAR SALINAS Attending Clinician Unavailable ADRIANA SANDY Attending Clinician Unavailab ADRIANA Larson Attending Clinician Unavailab tri Schuler MD, Sekou Wiggins Attending Clinician [phone] KENN GOODRICH K.HSoledad Attending Clinician Unavailrene Goodrich MD, Kenn MittalHSoledad Attending Clinician [phone] HARINIARNULFOCHRISTEL Wiggins Attending Clinician Unavailrene Newton MD, Carolyn Vogt Attending Clinician [phone] ANTONI WALLS Attending Clinician Unavailable Goldie Arenas Attending Clinician Unavailvibha Walls MD, Antoni Arroyo Attending Clinician [phone] Ultrasound, Ang-Mfm Attending Clinician Unavailrene Buck MD, Lm Harper Attending Clinician [phone] CAROLYN NEWTON Admitting Clinician Unavailable Hunter Blankenship MD Admitting Clinician [phone] Carolyn Newton MD Admitting Clinician Payers Payer Name Policy Type Policy Number Effective Date Expirati on Date Source [facility] [id number] 2019 00:00:00 Problems Condition Name Condition Details Condition Category Status Onset Date Resolution Date Last Treatment Date Treating Clinician Comments Source Low HDL (under 40) Low HDL (under 40) Disease Active 7-04 00:00: 00 [facility] Migraines Migraines Disease Active 4- 00:00: 00 [facility] Seasonal allergies Seasonal allergies Disease Active 4- 00:00: 00 [facility] Anxiety Anxiety Disease Active 4- 00:00: 00 [facility] Learning disability Learning disability Disease Active 4 00:00: 00 [facility] Uses Depo-Prove ra as primary control method Uses Depo-Prove ra as primary control method Disease Active 01-06 00:00: 00 [facility] Allergies, Adverse Reactions, Alerts Allergy Name Allergy Type Status Severity Reaction(s) Onset Date Inactive Date Treating Clinician Comments Source NO KNOWN ALLERGIE S Drug Class Active [facility] Social History Social Habit Start Date Stop Date Quantity Comments Source History of tobacco use Passive smoker [facility] Gender identity [facility] Sexual orientation U [facility] Alcohol intake 2023-10-06 00:00:00 2023-10-06 00:00:00 Ex-drinker (finding) [facility] Exposure to SARS-CoV-2 (event) 2023-01-12 00:00:00 2023-01-22 14:50:00 Not sure [facility] Tobacco use and exposure 2022-07-15 00:00:00 2022-07-15 00:00:00 Smokeless tobacco non-user [facility] History of Social function 2022-02-20 00:00:00 2022-02-20 00:00:00 [facility] Sex Assigned At 2000 00:00:00 2000 00:00:00 [facility] Smoking Status Start Date Stop Date Source Never smoked tobacco [facility] Medications Ordered Medication Name Filled Medication Name Start Date Stop Date Current Medication? Ordering Clinician Indication Dosage Frequency Signature (SIG) Comments Components Source medroxyPROG ESTERone (DEPO-PROVE RA) syringe 150 mg 2022-11 20:30: 00 10-06 16:25 :00 No [id number] 150mg [facility] medroxyPROG ESTERone (DEPO-PROVE RA) syringe 150 mg 2022-11 20:30: 00 10-06 16:25 :00 No [id number] 150mg 150 mg, Intramuscu lar, ONCE, 1 dose, On Wed10/06/23 at 1430, Routine [facility] medroxyPROG ESTERone (DEPO-PROVE RA) syringe 150 mg 07-14 21:00: 00 07-14 20:15 :00 No [id number] 150mg [facility] medroxyPROG ESTERone (DEPO-PROVE RA) syringe 150 mg 07-14 21:00: 00 07-14 20:15 :00 No [id number] 150mg 150 mg, Intramuscu lar, ONCE, 1 dose, On Wed07/14/23 at 1600, Routine [facility] medroxyPROG ESTERone (DEPO-PROVE RA) syringe 150 mg 04-19 21:45: 00 04-19 21:07 :00 No [id number] 150mg [facility] medroxyPROG ESTERone (DEPO-PROVE RA) syringe 150 mg 04-19 21:45: 00 04-19 21:07 :00 No [id number] 150mg 150 mg, Intramuscu lar, ONCE, 1 dose, On Wed04/19/23 at 1645, Routine [facility] medroxyPROG ESTERone (DEPO-PROVE RA) syringe 150 mg 01-22 21:15: 00 01-22 20:15 :00 No [id number] [facility] ESTERone (DEPO-PROVE RA) syringe 150 mg 01-22 21:15: 00 01-22 20:15 :00 No [id number] 150mg 150 mg, Intramuscu lar, ONCE, 1 dose, On Wed01/22/23 at 1615, Routine [facility] medroxyPROG ESTERone (DEPO-PROVE RA) syringe 150 mg 2021-11 22:00: 00 10-30 21:49 :00 No [id number] 150mg [facility] medroxyPROG ESTERone (DEPO-PROVE RA) syringe 150 mg 2021-11 22:00: 00 10-30 21:49 :00 No [id number] 150mg 150 mg, Intramuscu lar, ONCE, 1 dose, On Wed10/30/22 at 1600, Routine [facility] meloxicam 7.5 mg tablet 2021-11 00:00: 00 Yes [id number] 9102 7.5mg Take 1 tablet by mouth in the morning. [facility] meloxicam 7.5 mg tablet 2021-11 0 00:00: 00 Yes [id number] 9102 7.5mg Take 1 tablet by mouth in the morning. [facility] meloxicam 7.5 mg tablet 2021-11 0 00:00: 00 Yes [id number] 9102 7.5mg Take 1 tablet by mouth in the morning. [facility] meloxicam 7.5 mg tablet 2021- 0-13 00:00: 00 Yes [id number] 9102 7.5mg Take 1 tablet by mouth in the morning. [facility] meloxicam 7.5 mg tablet 2021- 0-13 00:00: 00 Yes [id number] 9102 7.5mg Take 1 tablet by mouth in the morning. [facility] meloxicam 7.5 mg tablet 2021- 0-13 00:00: 00 Yes [id number] 9102 7.5mg Take 1 tablet by mouth in the morning. [facility] meloxicam 7.5 mg tablet 2021- 0-13 00:00: 00 Yes [id number] 9102 7.5mg Take 1 tablet by mouth in the morning. [facility] meloxicam 7.5 mg tablet 2021- 0-13 00:00: 00 Yes [id number] 9102 7.5mg Take 1 tablet by mouth in the morning. [facility] meloxicam 7.5 mg tablet 2021- 0-13 00:00: 00 Yes [id number] 9102 7.5mg Take 1 tablet by mouth in the morning. [facility] meloxicam 7.5 mg tablet 2021- 0-13 00:00: 00 Yes [id number] 9102 7.5mg Take 1 tablet by mouth in the morning. [facility] meloxicam 7.5 mg tablet 2021- 0-13 00:00: 00 Yes [id number] 9102 7.5mg Take 1 tablet by mouth in the morning. [facility] meloxicam 7.5 mg tablet 2021- 0-13 00:00: 00 Yes [id number] 9102 7.5mg Take 1 tablet by mouth in the morning. [facility] meloxicam 7.5 mg tablet 2021- 0-13 00:00: 00 Yes [id number] 9102 7.5mg Take 1 tablet by mouth in the morning. [facility] meloxicam 7.5 mg tablet 2021- 0-13 00:00: 00 Yes [id number] 9102 7.5mg Take 1 tablet by mouth in the morning. [facility] medroxyPROG ESTERone (DEPO-PROVE RA) syringe 150 mg 08-07 20:45: 00 08-07 19:48 :00 No [id number] 150mg [facility] medroxyPROG ESTERone (DEPO-PROVE RA) syringe 150 mg 08-07 20:45: 00 08-07 19:48 :00 No [id number] 150mg 150 mg, Intramuscu lar, ONCE, 1 dose, On Wed08/07/22 at 1545, Routine [facility] SERTraline (ZOLOFT) 100 mg tablet 4-15 00:00: 00 Yes [id number] 100mg Take 1 tablet by mouth daily. [facility] hydrOXYzine 50 mg tablet 0 4-15 00:00: 00 Yes [id number] 50mg Take 1 tablet by mouth 3 (three) times daily as needed for Anxiety. [facility] SERTraline (ZOLOFT) 100 mg tablet 0 4-15 00:00: 00 Yes [id number] 100mg Take 1 tablet by mouth daily. [facility] hydrOXYzine 50 mg tablet 2021-0 4-15 00:00: 00 Yes [id number] 50mg Take 1 tablet by mouth 3 (three) times daily as needed for Anxiety. [facility] SERTraline (ZOLOFT) 100 mg tablet 2021-0 4-15 00:00: 00 07-30 00:00 :00 No [id number] 100mg Take 1 tablet by mouth daily. [facility] hydrOXYzine 50 mg tablet 2021-0 4-15 00:00: 00 07-30 00:00 :00 No [id number] 50mg Take 1 tablet by mouth 3 (three) times daily as needed for Anxiety. [facility] SERTraline (ZOLOFT) 100 mg tablet 2021-0 4-15 00:00: 00 07-30 00:00 :00 No [id number] 100mg Take 1 tablet by mouth daily. [facility] hydrOXYzine 50 mg tablet 2022-0 4-15 00:00: 00 07-30 00:00 :00 No [id number] 50mg Take 1 tablet by mouth 3 (three) times daily as needed for Anxiety. [facility] SUMAtriptan 25 mg tablet 02-14 00:00: 00 Yes [id number] Take 1 tab po x 1 dose PRN migraine, may take another dose x 1 two hours later if needed; max 2 doses/24 hours [facility] SUMAtriptan 25 mg tablet 02-14 00:00: 00 Yes [id number] Take 1 tab po x 1 dose PRN migraine, may take another dose x 1 two hours later if needed; max 2 doses/24 hours [facility] SUMAtriptan 25 mg tablet 02-14 00:00: 00 07-30 00:00 :00 No [id number] Take 1 tab po x 1 dose PRN migraine, may take another dose x 1 two hours later if needed; max 2 doses/24 hours [facility] SUMAtriptan 25 mg tablet 02-14 00:00: 00 07-30 00:00 :00 No [id number] Take 1 tab po x 1 dose PRN migraine, may take another dose x 1 two hours later if needed; max 2 doses/24 hours [facility] docusate calcium 240 mg capsule 12-15 00:00: 00 Yes [id number] 102 240mg Take 1 capsule by mouth once daily as needed for Constipati on. [facility] ferrous sulfate 325 mg (65 mg iron) tablet 12-15 00:00: 00 Yes [id number] 102 325mg Take 1 tablet by mouth 2 (two) times daily. [facility] docusate calcium 240 mg capsule 12-15 00:00: 00 Yes [id number] 102 240mg Take 1 capsule by mouth once daily as needed for Constipati on. [facility] ferrous sulfate 325 mg (65 mg iron) tablet 12-15 00:00: 00 Yes [id number] 102 325mg Take 1 tablet by mouth 2 (two) times daily. [facility] ferrous sulfate 325 mg (65 mg iron) tablet 12-15 00:00: 00 Yes [id number] 102 325mg Take 1 tablet by mouth 2 (two) times daily. [facility] ferrous sulfate 325 mg (65 mg iron) tablet 12-15 00:00: 00 Yes [id number] 102 325mg Take 1 tablet by mouth 2 (two) times daily. [facility] ferrous sulfate 325 mg (65 mg iron) tablet 12-15 00:00: 00 Yes [id number] 102 325mg Take 1 tablet by mouth 2 (two) times daily. [facility] ferrous sulfate 325 mg (65 mg iron) tablet 12-15 00:00: 00 Yes [id number] 102 325mg Take 1 tablet by mouth 2 (two) times daily. [facility] ferrous sulfate 325 mg (65 mg iron) tablet 12-15 00:00: 00 Yes [id number] 102 325mg Take 1 tablet by mouth 2 (two) times daily. [facility] ferrous sulfate 325 mg (65 mg iron) tablet 12-15 00:00: 00 Yes [id number] 102 325mg Take 1 tablet by mouth 2 (two) times daily. [facility] ferrous sulfate 325 mg (65 mg iron) tablet 12-15 00:00: 00 Yes [id number] 102 325mg Take 1 tablet by mouth 2 (two) times daily. [facility] ferrous sulfate 325 mg (65 mg iron) tablet 12-15 00:00: 00 Yes [id number] 102 325mg Take 1 tablet by mouth 2 (two) times daily. [facility] ferrous sulfate 325 mg (65 mg iron) tablet 12-15 00:00: 00 Yes [id number] 102 325mg Take 1 tablet by mouth 2 (two) times daily. [facility] ferrous sulfate 325 mg (65 mg iron) tablet 12-15 00:00: 00 Yes [id number] 102 325mg Take 1 tablet by mouth 2 (two) times daily. [facility] ferrous sulfate 325 mg (65 mg iron) tablet 12-15 00:00: 00 Yes [id number] 102 325mg Take 1 tablet by mouth 2 (two) times daily. [facility] ferrous sulfate 325 mg (65 mg iron) tablet 12-15 00:00: 00 Yes [id number] 102 325mg Take 1 tablet by mouth 2 (two) times daily. [facility] ferrous sulfate 325 mg (65 mg iron) tablet 12-15 00:00: 00 Yes [id number] 102 325mg Take 1 tablet by mouth 2 (two) times daily. [facility] ferrous sulfate 325 mg (65 mg iron) tablet 12-15 00:00: 00 Yes [id number] 102 325mg Take 1 tablet by mouth 2 (two) times daily. [facility] ferrous sulfate 325 mg (65 mg iron) tablet 12-15 00:00: 00 Yes [id number] 102 325mg Take 1 tablet by mouth 2 (two) times daily. [facility] ferrous sulfate 325 mg (65 mg iron) tablet 12-15 00:00: 00 Yes [id number] 102 325mg Take 1 tablet by mouth 2 (two) times daily. [facility] ferrous sulfate 325 mg (65 mg iron) tablet 12-15 00:00: 00 Yes [id number] 102 325mg Take 1 tablet by mouth 2 (two) times daily. [facility] ferrous sulfate 325 mg (65 mg iron) tablet 12-15 00:00: 00 Yes [id number] 102 325mg Take 1 tablet by mouth 2 (two) times daily. [facility] ferrous sulfate 325 mg (65 mg iron) tablet 12-15 00:00: 00 Yes [id number] 102 325mg Take 1 tablet by mouth 2 (two) times daily. [facility] ferrous sulfate 325 mg (65 mg iron) tablet 12-15 00:00: 00 Yes [id number] 102 325mg Take 1 tablet by mouth 2 (two) times daily. [facility] docusate calcium 240 mg capsule 12-15 00:00: 00 07-30 00:00 :00 No [id number] 102 240mg Take 1 capsule by mouth once daily as needed for Constipati on. [facility] docusate calcium 240 mg capsule 2 00:00: 00 07-30 00:00 :00 No [id number] 102 240mg Take 1 capsule by mouth once daily as needed for Constipati on. [facility] Immunizations Ordered Immunization Name Filled Immunization Name Date Status Comments Source TDAP 2020-10-09 00:00:00 Completed [facility] TDAP 2020-10-09 00:00:00 Completed [facility] TDAP 2020-10-09 00:00:00 Completed [facility] TDAP 2020-10-09 00:00:00 Completed [facility] TDAP 2020-10-09 00:00:00 Completed [facility] TDAP 2020-10-09 00:00:00 Completed [facility] TDAP 2020-10-09 00:00:00 Completed [facility] TDAP 2020-10-09 00:00:00 Completed [facility] TDAP 2020-10-09 00:00:00 Completed [facility] TDAP 2020-10-09 00:00:00 Completed [facility] TDAP 2020-10-09 00:00:00 Completed [facility] TDAP 2020-10-09 00:00:00 Completed [facility] TDAP 2020-10-09 00:00:00 Completed [facility] TDAP 2020-10-09 00:00:00 Completed [facility] TDAP 2020-10-09 00:00:00 Completed [facility] TDAP 2020-10-09 00:00:00 Completed [facility] TDAP 2020-10-09 00:00:00 Completed [facility] TDAP 2020-10-09 00:00:00 Completed [facility] Influenza Virus Vaccine Quad .5 mL IM 6+ MO 2020-08-12 00:00:00 Completed [facility] Influenza Virus Vaccine Quad .5 mL IM 6+ MO 2020-08-12 00:00:00 Completed [facility] Influenza Virus Vaccine Quad .5 mL IM 6+ MO 2020-08-12 00:00:00 Completed [facility] Influenza Virus Vaccine Quad .5 mL IM 6+ MO 2020-08-12 00:00:00 Completed [facility] Influenza Virus Vaccine Quad .5 mL IM 6+ MO 2020-08-12 00:00:00 Completed [facility] Influenza Virus Vaccine Quad .5 mL IM 6+ MO 2020-08-12 00:00:00 Completed [facility] Influenza Virus Vaccine Quad .5 mL IM 6+ MO 2020-08-12 00:00:00 Completed [facility] Influenza Virus Vaccine Quad .5 mL IM 6+ MO 2020-08-12 00:00:00 Completed [facility] Influenza Virus Vaccine Quad .5 mL IM 6+ MO 2020-08-12 00:00:00 Completed [facility] Influenza Virus Vaccine Quad .5 mL IM 6+ MO 2020-08-12 00:00:00 Completed [facility] Influenza Virus Vaccine Quad .5 mL IM 6+ MO 2020-08-12 00:00:00 Completed [facility] Influenza Virus Vaccine Quad .5 mL IM 6+ MO 2020-08-12 00:00:00 Completed [facility] Influenza Virus Vaccine Quad .5 mL IM 6+ MO 2020-08-12 00:00:00 Completed [facility] Influenza Virus Vaccine Quad .5 mL IM 6+ MO 2020-08-12 00:00:00 Completed [facility] Influenza Virus Vaccine Quad .5 mL IM 6+ MO 2020-08-12 00:00:00 Completed [facility] Influenza Virus Vaccine Quad .5 mL IM 6+ MO 2020-08-12 00:00:00 Completed [facility] Influenza Virus Vaccine Quad .5 mL IM 6+ MO 2020-08-12 00:00:00 Completed [facility] Influenza Virus Vaccine Quad .5 mL IM 6+ MO (FLUZONE/FLULAVAL/FL UARIX) 2020-08-12 00:00:00 Completed [facility] Influenza Virus Vaccine Quad .5 mL IM 6+ MO 2019-09-13 00:00:00 Completed [facility] Influenza Virus Vaccine Quad .5 mL IM 6+ MO 2019-09-13 00:00:00 Completed [facility] Influenza Virus Vaccine Quad .5 mL IM 6+ MO 2019-09-13 00:00:00 Completed [facility] Influenza Virus Vaccine Quad .5 mL IM 6+ MO 2019-09-13 00:00:00 Completed [facility] Influenza Virus Vaccine Quad .5 mL IM 6+ MO 2019-09-13 00:00:00 Completed [facility] Influenza Virus Vaccine Quad .5 mL IM 6+ MO 2019-09-13 00:00:00 Completed [facility] Influenza Virus Vaccine Quad .5 mL IM 6+ MO 2019-09-13 00:00:00 Completed [facility] Influenza Virus Vaccine Quad .5 mL IM 6+ MO 2019-09-13 00:00:00 Completed [facility] Influenza Virus Vaccine Quad .5 mL IM 6+ MO 2019-09-13 00:00:00 Completed [facility] Influenza Virus Vaccine Quad .5 mL IM 6+ MO 2019-09-13 00:00:00 Completed [facility] Influenza Virus Vaccine Quad .5 mL IM 6+ MO 2019-09-13 00:00:00 Completed [facility] Influenza Virus Vaccine Quad .5 mL IM 6+ MO 2019-09-13 00:00:00 Completed [facility] Influenza Virus Vaccine Quad .5 mL IM 6+ MO 2019-09-13 00:00:00 Completed [facility] Influenza Virus Vaccine Quad .5 mL IM 6+ MO 2019-09-13 00:00:00 Completed [facility] Influenza Virus Vaccine Quad .5 mL IM 6+ MO 2019-09-13 00:00:00 Completed [facility] Influenza Virus Vaccine Quad .5 mL IM 6+ MO 2019-09-13 00:00:00 Completed [facility] Influenza Virus Vaccine Quad .5 mL IM 6+ MO 2019-09-13 00:00:00 Completed [facility] Influenza Virus Vaccine Quad .5 mL IM 6+ MO (FLUZONE/FLULAVAL/FL UARIX) 2019-09-13 00:00:00 Completed [facility] HEPATITIS A 2012-06-27 00:00:00 Completed [facility] HPV 2012-06-27 00:00:00 Completed [facility] Meningococcal Polysaccharide (groups A, C, Y and W-135) conjugate vaccine (MCV4P) 2012-06-27 00:00:00 Completed [facility] TDAP 2012-06-27 00:00:00 Completed [facility] Varicella (varivax)(chicken pox) 2012-06-27 00:00:00 Completed [facility] HEPATITIS A 2012-06-27 00:00:00 Completed [facility] HPV 2012-06-27 00:00:00 Completed [facility] Meningococcal Polysaccharide (groups A, C, Y and W-135) conjugate vaccine (MCV4P) 2012-06-27 00:00:00 Completed [facility] TDAP 2012-06-27 00:00:00 Completed [facility] Varicella (varivax)(chicken pox) 2012-06-27 00:00:00 Completed [facility] HEPATITIS A 2012-06-27 00:00:00 Completed [facility] HPV 2012-06-27 00:00:00 Completed [facility] Meningococcal Polysaccharide (groups A, C, Y and W-135) conjugate vaccine (MCV4P) 2012-06-27 00:00:00 Completed [facility] TDAP 2012-06-27 00:00:00 Completed [facility] Varicella (varivax)(chicken pox) 2012-06-27 00:00:00 Completed [facility] DTaP, Unspecified Formulation 2004-03-31 00:00:00 Completed [facility] MMR 2004-03-31 00:00:00 Completed [facility] IPV 2004-03-31 00:00:00 Completed [facility] Polio (IPV/OPV) 2004-03-31 00:00:00 Completed [facility] DTaP, Unspecified Formulation 2004-03-31 00:00:00 Completed [facility] MMR 2004-03-31 00:00:00 Completed [facility] IPV 2004-03-31 00:00:00 Completed [facility] Polio (IPV/OPV) 2004-03-31 00:00:00 Completed [facility] DTaP, Unspecified Formulation 2004-03-31 00:00:00 Completed [facility] MMR 2004-03-31 00:00:00 Completed [facility] IPV 2004-03-31 00:00:00 Completed [facility] Polio (IPV/OPV) 2004-03-31 00:00:00 Completed [facility] DTaP, Unspecified Formulation 2000-09-20 00:00:00 Completed [facility] HIB 4 Dose Schedule 2000-09-20 00:00:00 Completed [facility] MMR 2000-09-20 00:00:00 Completed [facility] DTaP, Unspecified Formulation 2000-09-20 00:00:00 Completed [facility] HIB 4 Dose Schedule 2000-09-20 00:00:00 Completed [facility] MMR 2000-09-20 00:00:00 Completed [facility] DTaP, Unspecified Formulation 2000-09-20 00:00:00 Completed [facility] HIB 4 Dose Schedule 2000-09-20 00:00:00 Completed [facility] MMR 2000-09-20 00:00:00 Completed [facility] IPV 1999 00:00:00 Completed [facility] Varicella (varivax)(chicken pox) 1999 00:00:00 Completed [facility] Polio (IPV/OPV) 1999 00:00:00 Completed [facility] IPV 1999 00:00:00 Completed [facility] Varicella (varivax)(chicken pox) 1999 00:00:00 Completed [facility] Polio (IPV/OPV) 1999 00:00:00 Completed [facility] IPV 1999 00:00:00 Completed [facility] Varicella (varivax)(chicken pox) 1999 00:00:00 Completed [facility] Polio (IPV/OPV) 1999 00:00:00 Completed [facility] Hep B, Adol or Pedi Dosage 1999-06-30 00:00:00 Completed [facility] Hep B, Adol or Pedi Dosage 1999-06-30 00:00:00 Completed [facility] Hep B, Adol or Pedi Dosage 1999-06-30 00:00:00 Completed [facility] DTaP, Unspecified Formulation 1999-04-23 00:00:00 Completed [facility] HIB 4 Dose Schedule 1999-04-23 00:00:00 Completed [facility] DTaP, Unspecified Formulation 1999-04-23 00:00:00 Completed [facility] HIB 4 Dose Schedule 1999-04-23 00:00:00 Completed [facility] DTaP, Unspecified Formulation 1999-04-23 00:00:00 Completed [facility] HIB 4 Dose Schedule 1999-04-23 00:00:00 Completed [facility] DTaP, Unspecified Formulation 1999-02-11 00:00:00 Completed [facility] HIB 4 Dose Schedule 1999-02-11 00:00:00 Completed [facility] IPV 1999-02-11 00:00:00 Completed [facility] Polio (IPV/OPV) 1999-02-11 00:00:00 Completed [facility] DTaP, Unspecified Formulation 1999-02-11 00:00:00 Completed [facility] HIB 4 Dose Schedule 1999-02-11 00:00:00 Completed [facility] IPV 1999-02-11 00:00:00 Completed [facility] Polio (IPV/OPV) 1999-02-11 00:00:00 Completed [facility] DTaP, Unspecified Formulation 1999-02-11 00:00:00 Completed [facility] HIB 4 Dose Schedule 1999-02-11 00:00:00 Completed [facility] IPV 1999-02-11 00:00:00 Completed [facility] Polio (IPV/OPV) 1999-02-11 00:00:00 Completed [facility] DTaP, Unspecified Formulation 1998 00:00:00 Completed [facility] HIB 4 Dose Schedule 1998 00:00:00 Completed [facility] IPV 1998 00:00:00 Completed [facility] Polio (IPV/OPV) 1998 00:00:00 Completed [facility] DTaP, Unspecified Formulation 1998 00:00:00 Completed [facility] HIB 4 Dose Schedule 1998 00:00:00 Completed [facility] IPV 1998 00:00:00 Completed [facility] Polio (IPV/OPV) 1998 00:00:00 Completed [facility] DTaP, Unspecified Formulation 1998 00:00:00 Completed [facility] HIB 4 Dose Schedule 1998 00:00:00 Completed [facility] IPV 1998 00:00:00 Completed [facility] Polio (IPV/OPV) 1998 00:00:00 Completed [facility] Hep B, Adol or Pedi Dosage 1998 00:00:00 Completed [facility] Hep B, Adol or Pedi Dosage 1998 00:00:00 Completed [facility] Hep B, Adol or Pedi Dosage 1998 00:00:00 Completed [facility] Hep B, Adol or Pedi Dosage 1998 00:00:00 Completed [facility] Hep B, Adol or Pedi Dosage 1998 00:00:00 Completed [facility] Hep B, Adol or Pedi Dosage 1998 00:00:00 Completed [facility] Influenza Virus Vaccine Quad .5 mL IM 6+ MO (FLUZONE/FLULAVAL/FL UARIX) Unknown Completed [facility] Influenza Virus Vaccine Quad .5 mL IM 6+ MO (FLUZONE/FLULAVAL/FL UARIX) Unknown Completed [facility] TDAP Unknown Completed [facility] DTaP, Unspecified Formulation Unknown Completed [facility] DTaP, Unspecified Formulation Unknown Completed [facility] DTaP, Unspecified Formulation Unknown Completed [facility] DTaP, Unspecified Formulation Unknown Completed [facility] DTaP, Unspecified Formulation Unknown Completed [facility] HEPATITIS A Unknown Completed [facility] Hep B, Adol or Pedi Dosage Unknown Completed [facility] Hep B, Adol or Pedi Dosage Unknown Completed [facility] Hep B, Adol or Pedi Dosage Unknown Completed [facility] HIB 4 Dose Schedule Unknown Completed [facility] HIB 4 Dose Schedule Unknown Completed [facility] HIB 4 Dose Schedule Unknown Completed [facility] HIB 4 Dose Schedule Unknown Completed [facility] HPV Unknown Completed [facility] Meningococcal Polysaccharide (groups A, C, Y and W-135) conjugate vaccine (MCV4P) Unknown Completed [facility] MMR Unknown Completed [facility] MMR Unknown Completed [facility] IPV Unknown Completed [facility] IPV Unknown Completed [facility] IPV Unknown Completed [facility] IPV Unknown Completed [facility] TDAP Unknown Completed [facility] Varicella (varivax)(chicken pox) Unknown Completed [facility] Varicella (varivax)(chicken pox) Unknown Completed [facility] Polio (IPV/OPV) Unknown Completed [facility] Polio (IPV/OPV) Unknown Completed [facility] Polio (IPV/OPV) Unknown Completed [facility] Polio (IPV/OPV) Unknown Completed [facility] Influenza Virus Vaccine Quad .5 mL IM 6+ MO (FLUZONE/FLULAVAL/FL UARIX) Unknown Completed [facility] Influenza Virus Vaccine Quad .5 mL IM 6+ MO (FLUZONE/FLULAVAL/FL UARIX) Unknown Completed [facility] TDAP Unknown Completed [facility] DTaP, Unspecified Formulation Unknown Completed [facility] DTaP, Unspecified Formulation Unknown Completed [facility] DTaP, Unspecified Formulation Unknown Completed [facility] DTaP, Unspecified Formulation Unknown Completed [facility] DTaP, Unspecified Formulation Unknown Completed [facility] HEPATITIS A Unknown Completed [facility] Hep B, Adol or Pedi Dosage Unknown Completed [facility] Hep B, Adol or Pedi Dosage Unknown Completed [facility] Hep B, Adol or Pedi Dosage Unknown Completed [facility] HIB 4 Dose Schedule Unknown Completed [facility] HIB 4 Dose Schedule Unknown Completed [facility] HIB 4 Dose Schedule Unknown Completed [facility] HIB 4 Dose Schedule Unknown Completed [facility] HPV Unknown Completed [facility] Meningococcal Polysaccharide (groups A, C, Y and W-135) conjugate vaccine (MCV4P) Unknown Completed [facility] MMR Unknown Completed [facility] MMR Unknown Completed [facility] IPV Unknown Completed [facility] IPV Unknown Completed [facility] IPV Unknown Completed [facility] IPV Unknown Completed [facility] TDAP Unknown Completed [facility] Varicella (varivax)(chicken pox) Unknown Completed [facility] Varicella (varivax)(chicken pox) Unknown Completed [facility] Polio (IPV/OPV) Unknown Completed [facility] Polio (IPV/OPV) Unknown Completed [facility] Polio (IPV/OPV) Unknown Completed [facility] Polio (IPV/OPV) Unknown Completed [facility] Influenza Virus Vaccine Quad .5 mL IM 6+ MO (FLUZONE/FLULAVAL/FL UARIX) Unknown Completed [facility] Influenza Virus Vaccine Quad .5 mL IM 6+ MO (FLUZONE/FLULAVAL/FL UARIX) Unknown Completed [facility] TDAP Unknown Completed [facility] DTaP, Unspecified Formulation Unknown Completed [facility] DTaP, Unspecified Formulation Unknown Completed [facility] DTaP, Unspecified Formulation Unknown Completed [facility] DTaP, Unspecified Formulation Unknown Completed [facility] DTaP, Unspecified Formulation Unknown Completed [facility] HEPATITIS A Unknown Completed [facility] Hep B, Adol or Pedi Dosage Unknown Completed [facility] Hep B, Adol or Pedi Dosage Unknown Completed [facility] Hep B, Adol or Pedi Dosage Unknown Completed [facility] HIB 4 Dose Schedule Unknown Completed [facility] HIB 4 Dose Schedule Unknown Completed [facility] HIB 4 Dose Schedule Unknown Completed [facility] HIB 4 Dose Schedule Unknown Completed [facility] HPV Unknown Completed [facility] Meningococcal Polysaccharide (groups A, C, Y and W-135) conjugate vaccine (MCV4P) Unknown Completed [facility] MMR Unknown Completed [facility] MMR Unknown Completed [facility] IPV Unknown Completed [facility] IPV Unknown Completed [facility] IPV Unknown Completed [facility] IPV Unknown Completed [facility] TDAP Unknown Completed [facility] Varicella (varivax)(chicken pox) Unknown Completed [facility] Varicella (varivax)(chicken pox) Unknown Completed [facility] Polio (IPV/OPV) Unknown Completed [facility] Polio (IPV/OPV) Unknown Completed [facility] Polio (IPV/OPV) Unknown Completed [facility] Polio (IPV/OPV) Unknown Completed [facility] Influenza Virus Vaccine Quad .5 mL IM 6+ MO (FLUZONE/FLULAVAL/FL UARIX) Unknown Completed [facility] Influenza Virus Vaccine Quad .5 mL IM 6+ MO (FLUZONE/FLULAVAL/FL UARIX) Unknown Completed [facility] TDAP Unknown Completed [facility] DTaP, Unspecified Formulation Unknown Completed [facility] DTaP, Unspecified Formulation Unknown Completed [facility] DTaP, Unspecified Formulation Unknown Completed [facility] DTaP, Unspecified Formulation Unknown Completed [facility] DTaP, Unspecified Formulation Unknown Completed [facility] HEPATITIS A Unknown Completed [facility] Hep B, Adol or Pedi Dosage Unknown Completed [facility] Hep B, Adol or Pedi Dosage Unknown Completed [facility] Hep B, Adol or Pedi Dosage Unknown Completed [facility] HIB 4 Dose Schedule Unknown Completed [facility] HIB 4 Dose Schedule Unknown Completed [facility] HIB 4 Dose Schedule Unknown Completed [facility] HIB 4 Dose Schedule Unknown Completed [facility] HPV Unknown Completed [facility] Meningococcal Polysaccharide (groups A, C, Y and W-135) conjugate vaccine (MCV4P) Unknown Completed [facility] MMR Unknown Completed [facility] MMR Unknown Completed [facility] IPV Unknown Completed [facility] IPV Unknown Completed [facility] IPV Unknown Completed [facility] IPV Unknown Completed [facility] TDAP Unknown Completed [facility] Varicella (varivax)(chicken pox) Unknown Completed [facility] Varicella (varivax)(chicken pox) Unknown Completed [facility] Polio (IPV/OPV) Unknown Completed [facility] Polio (IPV/OPV) Unknown Completed [facility] Polio (IPV/OPV) Unknown Completed [facility] Polio (IPV/OPV) Unknown Completed [facility] Vital Signs Vital Name Observation Time Observation Value Comments S sabino Systolic blood pressure 2023-10-06 16:25:00 125 mm[Hg] [facility] Diastolic blood pressure 2023-10-06 16:25:00 88 mm[Hg] [facility] Heart rate 2023-10-06 16:25:00 69 /min [facility] Body temperature 2023-10-06 16:25:00 36.89 Samara [facility] Respiratory rate 2023-10-06 16:25:00 18 /min [facility] Body weight 2023-10-06 16:25:00 78.109 kg [facility] BMI 2023-10-06 16:25:00 32.54 kg/m2 [facility] Systolic blood pressure 2023-07-14 20:12:00 117 mm[Hg] [place] [facility] Diastolic blood pressure 2023-07-14 20:12:00 79 mm[Hg] [facility] Heart rate 2023-07-14 20:12:00 66 /min [facility] Body temperature 2023-07-14 20:12:00 36.61 Samara [facility] Respiratory rate 2023-07-14 20:12:00 18 /min [facility] Body height 2023-07-14 20:12:00 154.9 cm [facility] Body weight 2023-07-14 20:12:00 78.744 kg [facility] BMI 2023-07-14 20:12:00 32.80 kg/m2 [facility] Systolic blood pressure 2023-04-19 21:06:00 99 mm[Hg] [facility] Diastolic blood pressure 2023-04-19 21:06:00 67 mm[Hg] [facility] Heart rate 2023-04-19 21:06:00 75 /min [facility] Body temperature 2023-04-19 21:06:00 36.78 Samara [facility] Respiratory rate 2023-04-19 21:06:00 18 /min [facility] Body height 2023-04-19 21:06:00 152.4 cm [facility] Body weight 2023-04-19 21:06:00 76.567 kg [facility] BMI 2023-04-19 21:06:00 32.97 kg/m2 [facility] Systolic blood pressure 2023-01-22 20:16:00 101 mm[Hg] [facility] Diastolic blood pressure 2023-01-22 20:16:00 70 mm[Hg] [facility] Heart rate 2023-01-22 20:16:00 64 /min [facility] Body temperature 2023-01-22 20:16:00 36.56 Samara [facility] Respiratory rate 2023-01-22 20:16:00 18 /min [facility] Body height 2023-01-22 20:16:00 152.4 cm [facility] Body weight 2023-01-22 20:16:00 77.293 kg [facility] BMI 2023-01-22 20:16:00 33.28 kg/m2 [facility] Systolic blood pressure 2022-10-30 21:47:00 103 mm[Hg] [facility] Diastolic blood pressure 2022-10-30 21:47:00 71 mm[Hg] [facility] Heart rate 2022-10-30 21:47:00 76 /min [facility] Body temperature 2022-10-30 21:47:00 36.67 Samara [facility] Respiratory rate 2022-10-30 21:47:00 18 /min [facility] Body height 2022-10-30 21:47:00 [facility] 2022-10-30 21:47:00 74.39 kg [facility] BMI 2022-10-30 21:47:00 30.00 kg/m2 [facility] Systolic blood pressure 2022-08-20 20:16:00 106 mm[Hg] [facility] Diastolic blood pressure 2022-08-20 20:16:00 75 mm[Hg] [facility] Heart rate 2022-08-20 20:16:00 80 /min [facility] Body height 2022-08-20 20:16:00 157.5 cm [facility] Body weight 2022-08-20 20:16:00 71.895 [facility] BMI 2022-08-20 20:16:00 28.99 kg/m2 [facility] Oxygen saturation in Arterial blood by Pulse oximetry 2022-08-20 20:16:00 99 /min [facility] Systolic blood pressure 2022-08-07 19:35:00 105 mm[Hg] [facility] Diastolic blood pressure 2022-08-07 19:35:00 74 mm[Hg] [facility] Heart rate 2022-08-07 19:35:00 65 /min [facility] Body temperature 2022-08-07 19:35:00 36.72 Samara [facility] Respiratory rate 2022-08-07 19:35:00 17 /min [facility] Body height 2022-08-07 19:35:00 165.1 cm [facility] Body weight 2022-08-07 19:35:00 70.489 kg [facility] BMI 2022-08-07 19:35:00 25.86 kg/m2 [facility] Systolic blood pressure 2022-07-30 18:21:00 107 mm[Hg] [facility] Diastolic blood pressure 2022-07-30 18:21:00 74 mm[Hg] [facility] Heart rate 2022-07-30 18:21:00 60 /min [facility] Body height 2022-07-30 18:21:00 152.4 cm [facility] Body weight 2022-07-30 18:21:00 70.67 kg [facility] BMI 2022-07-30 18:21:00 30.43 kg/m2 [facility] Oxygen saturation in Arterial blood by Pulse oximetry 2022-07-30 18:21:00 99 /min [facility] Systolic blood pressure 2022-07-15 20:00:00 133 mm[Hg] [facility] Diastolic blood pressure 2022-07-15 20:00:00 88 mm[Hg] [place] [facility] Heart rate 2022-07-15 20:00:00 62 /min [facility] Body temperature 2022-07-15 20:00:00 37.22 Samara [facility] Body height 2022-07-15 20:00:00 152.4 cm [facility] Body weight 2022-07-15 20:00:00 71.033 kg [facility] BMI 2022-07-15 20:00:00 30.58 kg/m2 [facility] Procedures Procedure Date / Time Performed Performing Clinician Source CONSENT TO CONTACT FOR VOLUNTARY RESEARCH 2023-10-06 15:58:50 Doctor Unassigned, [place] [facility] CONSENT/REFUSAL FOR DIAGNOSIS AND TREATMENT 2023-10-06 15:57:13 Doctor Unassigned, [place] [facility] ASSIGNMENT OF BENEFITS 2023-10-06 15:56:30 Docto r Unassigned, [place] [facility] PATIENT FINANCIAL POLICY 2023-01-22 19:51:39 Doctor Unassigned, [place] [facility] PHYSICIAN CERTIFICATION STATEMENT 2022-12-24 06:01:00 Doctor Unassigned, [place] [facility] POCT TEST 2022-07-15 00:00:00 Marcos Bangura [facility] Encounters Start Date/Time End Date/Time Encounter Type Admission Type Attending Clinicians Care Facility Care Department Encounter ID Source 2021-09-06 21:43:39 Outpatient P [facility] [id number] [facility] 2021-09-06 21:41:41 Outpatient P [facility] [id number] [facility] 2021-09-06 08:03:12 Outpatient P [facility] [id number] [facility] 2021-09-06 08:02:49 Outpatient P [facility] [id number] [facility] 2023-10-06 10:30:00 2023-10-06 10:30:00 Nurse Visit Nurse, [facility] [place], [facility] BUILDING 1..840.114 350.1.13.10 4.2.7.2.686 [id number] 134 [id number] [facility] 2023-10-06 10:30:00 2023-10-06 10:28:30 Outpatient R [facility] [id number] [facility] 2023-10-06 00:00:00 2023-10-06 00:00:00 Orders Only Doctor Unassigned, [place] [facility] 1..840.114 350.1.13.10 4.2.7.2.686 [id number] [id number] [facility] 2023-07-15 14:45:00 2023-07-15 14:45:00 Outpatient R [facility]OURTNEY [facility] [id number] [facility] 2023-07-15 14:45:00 2023-07-15 14:45:00 Outpatient R [facility] [id number] [facility] 2023-07-14 15:30:00 2023-07-14 15:30:00 Nurse Visit Nurse, [facility] Pattie [facility] 1..840.114 350.1.13.10 4.2.7.2.686 [id number] 134 [id number] [facility] 2023-07-14 15:30:00 2023-07-14 15:11:53 Outpatient R PATTIE HUNTER [facility] [id number] [facility] 2023-05-03 14:45:00 2023-05-03 14:45:00 Outpatient R [facility] [id number] [facility] 2023-04-19 15:30:00 2023-04-19 15:45:00 Nurse Visit Nurse, [facility] Willem [facility] BUILDING 1.2.840.114 350.1.13.10 4.2.7.2.686 [id number] 134 [id number] [facility] 2023-04-19 15:30:00 2023-04-19 15:30:00 Outpatient ELISA HENSLEY [facility] [id number] [facility] 2023-04-07 00:00:00 2023-04-07 00:00:00 Telephone Marcelle Perez 1..114 350.1.13.10 4.2.7.2.686 [id number] [facility] 2023-01-22 15:00:00 2023-01-22 15:16:09 Outpatient Meredith BANGURA [facility] [id number] [facility] 2023-01-22 15:00:00 2023-01-22 15:16:09 Nurse Visit Nurse, [facility] Willem [facility] NAL BUILDING 1.84.114 350.1.13.10 4.2.7.2.686 [id number] 134 [id number] [facility] 2023-01-22 00:00:00 2023-01-22 00:00:00 Orders Only Doctor Unassigned, [place] [facility] 1..114 350.1.13.10 4.2.7.2.686 [id number] [id number] [facility] 2023-01-01 00:00:00 2023-01-01 00:00:00 Patient Secure Msg Doctor Unassigned, [place] [facility] 1.84.114 350.1.13.10 4.2.7.2.686 [id number] [facility] 2022-12-24 00:00:00 2022-12-24 00:00:00 Orders Only Doctor Unassigned, [place] [facility] 1.2.114 350.1.13.10 4.2.7.2.686 [id number] [id number] [facility] 2022-11-27 00:00:00 2022-11-27 00:00:00 Telephone Hunter Blankenship [facility] 1.2.840.114 350.1.13.10 4.2.7.2.686 [id number] [facility] 2022-10-30 15:00:00 2022-10-30 15:48:14 Outpatient R [facility] [id number] [facility] 2022-10-30 15:00:00 2022-10-30 15:48:14 Nurse Visit Nurse, [facility] 1.2.840.114 350.1.13.10 4.2.7.2.686 [id number] 134 [id number] [facility] 2022-08-20 15:30:00 2022-08-20 15:32:49 Outpatient R DUANE ANAYA [facility] [id number] [facility] 2022-08-20 15:30:00 2022-08-20 15:32:49 Office Visit Duane Anaya [facility] 1.2.840.114 350.1.13.10 4.2.7.2.686 [id number] [facility] 2022-08-10 15:30:00 2022-08-10 15:30:00 Outpatient R DUANE ANAYA [facility] [id number] [facility] 2022-08-07 14:30:00 2022-08-07 14:35:10 Outpatient R PATTIE HUN[facility] [id number] [facility] 2022-08-07 14:30:00 2022-08-07 14:35:10 Nurse Visit Nurse, [facility] Hunter Blankenship [facility] NAL BUILDING 1..840.114 350.1.13.10 4.2.7.2.686 [id number] 134 [id number] [facility] 2022-08-06 00:00:00 2022-08-06 00:00:00 Patient Secure Msg Doctor Unassigned, [place] [facility] MED[facility] OFF[facility] BUILDING 1.840.114 350.1.13.10 4.2.7.2.686 [id number] [facility] 2022-08-04 00:00:00 2022-08-04 00:00:00 Patient Secure Msg Doctor Unassigned, [place] [facility] OFF[facility] BUILDING 1.840.114 350.1.13.10 4.2.7.2.686 [id number] 044 [id number] [facility] 2022-07-30 13:45:00 2022-07-30 23:59:00 Outpatient R YAZMIN MENCHACA [facility] [id number] [facility] 2022-07-30 13:00:00 2022-07-30 13:46:26 Office Visit Yazmin Menchaca [facility]CTOR?[facility] MEDICAL OFF[facility] BUILDING 1.840.114 350.1.13.10 4.2.7.2.686 [id number] [facility] 2022-07-30 00:00:00 2022-07-30 00:00:00 Letter (Out) Yazmin Menchaca [facility]CTOR[facility] MEDICAL OFFICE BUILDING 1.840.114 350.1.13.10 4.2.7.2.686 [id number] 044 [id number] [facility] 2022-07-15 15:45:00 2022-07-15 16:00:00 Marketing Operations Intern Visit 2, Adc Lab Elisa Bangura [facility] BUILDING 1.284.114 350.1.13.10 4.2.7.2.686 [id number] [facility] 2022-07-15 15:45:00 2022-07-15 15:45:00 Outpatient R [facility] [id number] [facility] 2022-07-15 15:00:00 2022-07-15 15:34:26 Office Visit Willem [facility] 1..840.114 350.1.13.10 4.2.7.2.686 [id number] 134 [id number] [facility] 2022-07-15 15:00:00 2022-07-15 15:34:26 Outpatient R [facility] [id number] [facility] 2022-07-15 00:00:00 2022-07-15 00:00:00 Orders Only Doctor Unassigned, [place] [facility] 1..840.114 350.1.13.10 4.2.7.2.686 [id number] [id number] [facility] 2022-05-15 14:30:00 2022-05-15 14:36:07 Outpatient R HUNTER BLANKENSHIP [facility] [id number] [facility] 2022-05-15 14:30:00 2022-05-15 14:36:07 Nurse Visit Nurse, [facility] Hunter Blankenship [facility] 1..840.114 350.1.13.10 4.2.7.2.686 [id number] 134 [id number] [facility] 2022-03-20 15:20:00 2022-03-20 15:20:00 Outpatient R OSCAR SALINAS [facility] [id number] [facility] 2022-02-20 14:00:00 2022-02-20 14:42:25 Outpatient R DUADRIANA DAVE OGECHUKWU [facility] [id number] [facility] 2022-02-20 14:00:00 2022-02-20 14:42:25 Office [facility] 1.2.840.114 350.1.13.10 4.2.7.2.686 [id number] [id number] [facility] 2022-02-20 08:00:00 2022-02-20 13:53:03 Nurse Visit Nurse, [facility] Pattie [facility] 1..840.114 350.1.13.10 4.2.7.2.686 [id number] 134 [id number] [facility] 2021-11-28 10:30:00 2021-11-28 10:57:47 Outpatient R [facility] [id number] [facility] 2021-11-28 10:30:00 2021-11-28 10:57:47 Nurse Visit Nurse, [facility] Pattie [facility] 1.2.840.114 350.1.13.10 4.2.7.2.686 [id number] 134 [id number] [facility] 2021-11-21 15:30:00 2021-11-21 15:30:00 Outpatient R PATTIE [facility] [id number] [facility] 2021-08-27 15:36:01 2021-08-27 15:55:47 Nurse Visit Nurse, [facility] Elisa Bangura [facility] 1.2.840.114 350.1.13.10 4.2.7.2.686 [id number] 134 [id number] [facility] 2021-08-27 15:30:00 2021-08-27 15:30:00 Outpatient R [facility] [id number] [facility] 2021-08-27 00:00:00 2021-08-27 00:00:00 Orders Only Doctor Unassigned, [place] [facility] 1.2.840.114 350.1.13.10 4.2.7.2.686 [id number] [facility] 2021-07-09 15:30:00 2021-07-09 15:30:00 Outpatient R [facility]OURTNEY [facility] [id number] [facility] 2021-07-09 14:59:28 2021-07-09 15:29:28 Office Visit Willem [facility] 1.2.840.114 350.1.13.10 4.2.7.2.686 [id number] 134 [id number] [facility] 2021-06-04 15:31:05 2021-06-04 16:35:07 Nurse Visit Nurse, [facility] Hunter Blankenship [facility] 1.2.840.114 350.1.13.10 4.2.7.2.686 [id number] 134 [id number] [facility] 2021-06-04 15:30:00 2021-06-04 15:30:00 Outpatient R [facility] [id number] [facility] 2021-06-04 00:00:00 2021-06-04 00:00:00 Orders Only Doctor Unassigned, [place] [facility] 1.2.840.114 350.1.13.10 4.2.7.2.686 [id number] [id number] [facility] 2021-06-03 00:00:00 2021-06-03 00:00:00 Telephone Hunter Blankenship [facility] 1.2.840.114 350.1.13.10 4.2.7.2.686 [id number] 134 [id number] [facility] 2021-05-13 00:00:00 2021-05-13 00:00:00 Telephone Sekou Schuler [facility] Office Building [facility] 1..840.114 350.1.13.10 4.2.7.2.686 [id number] [facility] 2021-05-11 00:00:00 2021-05-11 00:00:00 Case Management Sekou Schuler [facility] Office [facility] 1.840.114 350.1.13.10 4.2.7.2.686 [id number] [facility] 2021-05-09 08:55:31 2021-05-09 09:10:31 Marketing Operations Intern Visit 2, Adc [facility] 1..840.114 350.1.13.10 4.2.7.2.686 [id number] [facility] 2021-05-09 09:00:00 2021-05-09 09:00:00 Outpatient ELISA HENSLEY [facility] [id number] [facility] 2021-05-06 00:00:00 2021-05-06 00:00:00 Telephone Willem [facility] 1..840.114 350.1.13.10 4.2.7.2.686 [id number] 134 [id number] [facility] 2021-04-28 00:00:00 2021-04-28 00:00:00 Telephone Willem Elisa [facility] 1..840.114 350.1.13.10 4.2.7.2.686 [id number] 134 [id number] [facility] 2021-04-09 13:00:00 2021-04-09 13:00:00 Outpatient KENN GONZALES [facility] [id number] [facility] 2021-03-17 14:53:00 2021-03-17 15:23:57 Office Visit Kenn Goodrich [facility] Building 1.2.840.114 350.1.13.10 4.2.7.2.686 [id number] [id number] [facility] 2021-03-17 15:00:00 2021-03-17 15:00:00 Outpatient R KENN GOODRICH [facility] [id number] [facility] 2021-03-11 14:51:35 2021-03-11 15:06:35 Nurse Visit Nurse, [facility] Elisa Bangrua [facility] Building 1.2.840.114 350.1.13.10 4.2.7.2.686 [id number] 134 [id number] [facility] 2021-03-11 15:00:00 2021-03-11 15:00:00 Outpatient R [facility] [id number] [facility] 2021-03-11 00:00:00 2021-03-11 00:00:00 Orders Only Doctor Unassigned, [place] [facility] 1.2.840.114 350.1.13.10 4.2.7.2.686 [id number] [id number] [facility] 2021-02-14 14:36:37 2021-02-14 16:17:35 Office Visit Sekou Schuler [facility] Office [facility] 1.2.840.114 350.1.13.10 4.2.7.2.686 [id number] [facility] 2021-02-14 14:30:00 2021-02-14 14:30:00 Outpatient R SEKOU SCHULER [facility] [id number] [facility] 2021-01-06 14:53:10 2021-01-06 16:13:11 Routine Visit Hunter Blankenship [facility] Building 1.2.840.114 350.1.13.10 4.2.7.2.686 [id number] 134 [id number] [facility] 2021-01-06 15:00:00 2021-01-06 15:00:00 Outpatient R HUNTER BLANKENSHIP [facility] [id number] [facility] 2020-12-17 16:15:00 2020-12-17 16:15:00 [id number] 2020-12-17 16:00:00 2020-12-17 16:00:00 Outpatient R [facility] [id number] [facility] 2020-12-12 18:52:00 2020-12-15 12:35:00 Hospital Encounter Hunter Blankenship [facility] 1.2.840.114 350.1.13.10 4.2.7.2.686 [id number] [facility] 2020-12-11 17:54:00 2020-12-12 02:45:00 Hospital Encounter Carolyn Newton [facility] 1.2.840.114 350.1.13.10 4.2.7.2.686 [id number] [facility] 2020-12-09 16:06:07 2020-12-09 16:21:07 Routine Visit Hunter Blankenship [facility] Building 1.2.840.114 350.1.13.10 4.2.7.2.686 [id number] 134 [id number] [facility] 2020-12-09 16:15:00 2020-12-09 16:15:00 [facility] [id number] [facility] 2020-12-09 00:00:00 2020-12-09 00:00:00 Orders Only Doctor Unassigned, [place] [facility] 1.284.114 350.1.13.10 4.2.7.2.686 [id number] [facility] 2020-11-21 16:04:44 2020-11-21 16:19:44 Routine Visit Elisa Bangura [facility] 1.284.114 350.1.13.10 4.2.7.2.686 [id number] 134 [id number] [facility] 2020-11-21 16:15:00 2020-11-21 16:15:00 [facility] [id number] [facility] 2020-11-18 00:00:00 2020-11-18 00:00:00 Telephone Elisa Bangura [facility] 1.284.114 350.1.13.10 4.2.7.2.686 [id number] 134 [id number] [facility] 2020-11-07 16:15:00 2020-11-07 16:15:00 Outpatient R ELISA BANGURA [facility] [id number] [facility] 2020-11-07 12:52:16 2020-11-07 13:32:28 Routine Visit Hunter Blankenship [facility] 1.284.114 350.1.13.10 4.2.7.2.686 [id number] 134 [id number] [facility] 2020-10-24 14:42:53 2020-10-24 15:48:59 Routine Visit Hunter Blankenship [facility] 1.2.114 350.1.13.10 4.2.7.2.686 [id number] [facility] 2020-10-24 14:45:00 2020-10-24 14:45:00 Outpatient R HUNTER BLANKENSHIP [facility] [id number] [facility] 2020-10-09 14:09:45 2020-10-09 14:24:45 Routine Visit Elisa Bangura [facility] Building 1.2.840.114 350.1.13.10 4.2.7.2.686 [id number] 134 [id number] [facility] 2020-10-09 13:30:00 2020-10-09 13:30:00 Outpatient R [facility] [id number] [facility] 2020-10-09 13:06:42 2020-10-09 13:21:42 Marketing Operations Intern Visit 2, Adc Lab Hunter Blankenship [facility] 1.2840.114 350.1.13.10 4.2.7.2.686 [id number] [facility] 2020-10-06 13:56:00 2020-10-06 16:35:00 Hospital Encounter Carolyn Newton [facility] 1.2840.114 350.1.13.10 4.2.7.2.686 [id number] [facility] 2020-09-16 13:45:00 2020-09-16 13:45:00 Outpatient ANTONI MOSS [facility] [id number] [facility] 2020-09-16 09:27:27 2020-09-16 09:42:27 Telemedici ne Visit Goldie Arenas Joseph W [facility] SAFETY SECURITY OFFICER [facility] 1.2840.114 350.1.13.10 4.2.7.2.686 [id number] [facility] 2020-09-09 15:28:55 2020-09-09 16:02:46 Routine Visit Hunter Blankenship [facility] 1.2840.114 350.1.13.10 4.2.7.2.686 [id number] 134 [id number] [facility] 2020-09-09 15:30:00 2020-09-09 15:30:00 Outpatient R PATTIE HUNTER [facility] [id number] [facility] 2020-08-20 12:58:15 2020-08-20 14:13:15 Marketing Operations Intern Visit Ultrasound, Lm Paredes [facility] SAFETY SECURITY OFFICER [facility] 1..840.114 350.1.13.10 4.2.7.2.686 [id number] [facility] 2020-08-20 13:00:00 2020-08-20 13:00:00 Outpatient Maicol [facility] [id number] [facility] 2020-08-12 14:30:44 2020-08-12 14:45:44 [facility] 1..840.114 350.1.13.10 4.2.7.2.686 [id number] 134 [id number] [facility] 2020-08-12 14:30:00 2020-08-12 14:30:00 [facility] [id number] [facility] 2020-07-16 15:16:02 2020-07-16 15:31:02 Marketing Operations Intern Visit 2, Adc Lab BlankenshipHunter [facility] 1..840.114 350.1.13.10 4.2.7.2.686 [id number] [facility] 2020-07-16 13:50:36 2020-07-16 15:02:36 Routine Visit BlankenshipHunter [facility] 1.2.840.114 350.1.13.10 4.2.7.2.686 [id number] [facility] 2020-07-16 13:45:00 2020-07-16 13:45:00 Outpatient R HUNTER BLANKENSHIP [facility] [id number] [facility] 2020-06-21 00:00:00 2020-06-21 00:00:00 Telephone Hunter Blankenship [facility] 1.2.840.114 350.1.13.10 4.2.7.2.686 [id number] 134 [id number] [facility] 2020-06-20 00:00:00 2020-06-20 00:00:00 Telephone Hunter Blankenship [facility] Building 1.2.840.114 350.1.13.10 4.2.7.2.686 [id number] 134 [id number] [facility] 2020-06-18 00:00:00 2020-06-18 00:00:00 Telephone Hunter Blankenship [facility] Building 1.2.840.114 350.1.13.10 4.2.7.2.686 [id number] 134 [id number] [facility] 2020-06-12 10:30:00 2020-06-12 10:30:00 Outpatient R [facility] [id number] [facility] 2020-06-12 00:00:00 2020-06-12 00:00:00 Orders Only Doctor Unassigned, [place] [facility] 1.2.840.114 350.1.13.10 4.2.7.2.686 [id number] [facility] 2020-06-11 15:16:46 2020-06-11 16:09:17 Routine Visit Hunter Blankenship [facility] 1.2.840.114 350.1.13.10 4.2.7.2.686 [id number] 134 [id number] [facility] 2020-06-11 15:30:00 2020-06-11 15:30:00 Outpatient R [facility] [id number] [facility] 2020-06-11 15:02:35 2020-06-11 15:17:35 Marketing Operations Intern Visit 2, Adc Lab Hunter Blankenship [facility] 1.2.840.114 350.1.13.10 4.2.7.2.686 [id number] [facility] 2020-05-14 13:57:03 2020-05-14 14:27:03 Initial Visit [facility] 1.2.840.114 350.1.13.10 4.2.7.2.686 [id number] 134 [id number] [facility] 2020-05-14 14:00:00 2020-05-14 14:00:00 Outpatient R HUNTER BLANKENSHIP [facility] [id number] [facility] 2020-05-14 00:00:00 2020-05-14 00:00:00 Orders Only Doctor Unassigned, [place] [facility] 1.2.840.114 350.1.13.10 4.2.7.2.686 [id number] [facility] 2020-03-20 14:30:00 2020-03-20 14:30:00 Outpatient R [facility] [id number] [facility] 2020-01-02 00:00:00 2020-01-02 00:00:00 Telephone Elisa Bangura [facility] 1.2.840.114 350.1.13.10 4.2.7.2.686 [id number] 134 [id number] [facility] 2019-12-20 14:57:43 2019-12-20 15:33:36 Office Visit Elisa [facility] 1.2.840.114 350.1.13.10 4.2.7.2.686 [id number] 134 [id number] [facility] 2019-12-20 14:30:00 2019-12-20 15:00:00 Office Visit Elisa Bangura [facility] 1.2.840.114 350.1.13.10 4.2.7.2.686 [id number] 134 [id number] [facility] 2019-12-20 00:00:00 2019-12-20 00:00:00 Orders Only Doctor Unassigned, [place] [facility] 1.2.840.114 350.1.13.10 4.2.7.2.686 [id number] [id number] [facility] 2019-06-12 14:07:50 2019-06-12 14:29:25 Nurse Visit Nurse, [facility] Elisa Bangura [facility] 1.2.840.114 350.1.13.10 4.2.7.2.686 [id number] 134 [id number] [facility] 2019-06-12 00:00:00 2019-06-12 00:00:00 Orders Only Doctor Unassigned, [place] [facility] 1.2840.114 350.1.13.10 4.2.7.2.686 [id number] [facility] Results Test Description Test Time Test Comments Results Result Co mments Source [facility] [id number] 20:04:00* Test Item Value Reference Range Interpretation Comme nts POCT PREG (test code = 1605) Negative On board controls acceptable with C Line (test code = 3574) Yes POCT PREG LOT # (test code = 3575) POCT PREG TEST DATE ( test code = 3576) [id number] 20:04:00* Test Item Value Reference Range Interpretation Comme nts POCT PREG (test code = 1605) Negative On board controls acceptable with C Line (test code = 3574) Yes POCT PREG LOT # (test code = 3575) POCT PREG TEST DATE ( test code = 3576) [facility]
[2023-12-21 16:30] LABS: Absolute Lymphocytes (CBC) 1.1 K/uL (0.7-4.9); Hematocrit 43.2 % (36.0-45.0); Lymphocytes % 19.9 % (15.3-44.8); MCV 88.6 fL (80-100); MPV 7.7 fL (7.6-11.3); Platelets 217 thou/uL (152-406); RBC Red Blood Cell Count 4.88 M/uL (3.86-4.86); Specific Gravity 1.015 (1.005-1.030); Urine Bacteria None Seen /HPF (<20); Urine Bilirubin NEGATIVE (Negative); Urine Blood Negative (Negative); Urine Clarity Turbid (Clear); Urine Color Light-Yellow (Yellow); Urine Glucose NEGATIVE (Negative); Urine Mucus Slight /HPF (None Seen); Urine Protein NEGATIVE (Negative); Urine RBC <5 /HPF (None Seen); Urine Urobilinogen Normal (Normal)
[2023-12-21 16:47] LABS: Albumin 4.1 g/dL (3.4-5.0); Potassium 3.4 mEq/L (3.5-5.1); Protein, Total 7.5 g/dL (6.4-8.2)
--- NOTE | 2023-12-21 19:40 | RAD REPORT ---
EXAM DESCRIPTION: CT - Abdomen Pelvis W Contrast - 12/21/2023 6:43 pm CLINICAL HISTORY: ABD PAIN COMPARISON: Abdomen Pelvis W Contrast dated 03/06/2022 TECHNIQUE: Thin cut axial CT imaging of the abdomen and pelvis was performed following intravenous a dministration of iodinated contrast. Multiplanar reformats were generated and reviewed. All CT scans are performed using dose optimization technique as appropriate and may include automated exposure control or mA/KV adjustment according to patient size. FINDINGS: No suspicious findings in the lung bases. The liver, spleen, adrenal glands, and pancreas show no suspicious findings. Gallbladder and biliary tree are also without suspicious finding. Symmetric renal function is seen with no hydronephrosis or suspicious renal mass. Small left renal pa rapelvic cysts. No dilated bowel loops or bowel wall thickening. No free air, free fluid or inflammatory stranding. N o hernia, mass or bulky lymphadenopathy. The urinary bladder is without significant finding. No suspicious bony findings. IMPRESSION: No acute intra-abdominal process.
--- NOTE | 2023-12-21 19:42 | EDPHYS ---
Physician Documentation [facility] Name: Lucy Charles Age: 23 yrs Sex: Female : 2000 Arrival Date: 12/21/2023 Time: 15:33 Bed 13 Private MD: ED Physician Maycol Dc HPI: 12/21 15:52 This 23 yrs old Female presents to ER via Ambulatory with complaints of abd pain, n/v, kb vaginal bleeding. 15:52 Patient is a 23-year-old female with no medical history who presents for diffuse kb abdominal pain, nausea after eating, vomiting in the morning and at night, vaginal bleeding intermittently (on 1 day off the next) for 2 to 3 weeks. States has been on the Depo shot since high school so she has not had a period in years. Reports last Depo shot was 11 weeks ago, scheduled for next dose on 12/29/2023. States she is not sure if she is or what is going on so she came to get checked out. States she could not afford a test so she has not taken 1 at home.. Historical: - Allergies: 15:46 No Known Allergies; ph - PMHx: 15:46 None; ph - Immunization history:: Adult Immunizations up to date. - Social history:: Smoking status: Reported history of juuling and/or vaping. ROS: 15:47 Constitutional: Negative for fever, chills, and weight loss, kb 15:47 Abdomen/GI: Positive for abdominal pain, nausea and vomiting, 15:47 : Positive for vaginal bleeding, 15:47 All other systems are negative, Exam: 15:47 Constitutional: This is a well developed, well nourished patient who is awake, alert, kb and in no acute distress. Head/Face: Normocephalic, atraumatic. ENT: Moist Mucous membranes Cardiovascular: Regular rate Respiratory: Respirations even and unlabored. No increased work of breathing. Talking in full sentences Skin: Warm, dry with normal turgor. Normal color. MS/ Extremity: Pulses equal, no cyanosis. Neurovascular intact. Full, normal range of motion. Neuro: Awake and alert, GCS 15, oriented to person, place, time, and situation. Moves all extremities. Normal gait. 15:47 Abdomen/GI: Inspection: abdomen appears normal, Bowel sounds: normal, Palpation: soft, in all quadrants, mild abdominal tenderness, in all quadrants, Vital Signs: 15:44 BP 114 / 80; Pulse 60; Resp 18; Temp 97.7; Pulse Ox 99% on R/A; Weight 68.04 kg; Height ph 5 ft. 0 in. ; 16:00 BP 109 / 65; Pulse 63; Resp 18; Pulse Ox 99% on R/A; db 17:00 BP 125 / 92; Pulse 69; Resp 18; Pulse Ox 100% on R/A; db 17:40 BP 127 / 55; Pulse 71; Resp 18; Pulse Ox 100% on R/A; db 18:30 BP 104 / 55; Pulse 76; Resp 16; Pulse Ox 100% on R/A; db 19:00 BP 112 / 94; Pulse 68; Resp 17 S; Pulse Ox 99% on R/A; jw7 19:58 BP 116 / 84; Pulse 78; Resp 18; Pulse Ox 100% on R/A; mb9 15:44 Body Mass Index 29.29 (68.04 kg, 152.4 cm) ph MDM: 15:36 Patient medically screened. kb 15:52 Data reviewed: vital signs, nurses notes. kb 19:41 Differential diagnosis: non-specific abd pain, ovarian cyst, . Counseling: I kb had a detailed discussion with the patient and/or guardian regarding the historical points, exam findings, and any diagnostic results supporting the discharge/admit diagnosis, lab results, radiology results, the need for outpatient follow up, a family practitioner, an OB/Gyne specialist, to return to the emergency department if symptoms worsen or persist or if there are any questions or concerns that arise at home. 12/21 15:41 Order name: CBC with Diff; Complete Time: 16:44 kb 12/21 15:41 Order name: CMP; Complete Time: 16:48 kb 12/21 15:41 Order name: Lipase; Complete Time: 16:48 kb 12/21 15:41 Order name: Test, Urine; Complete Time: 16:44 kb 12/21 15:41 Order name: Urinalysis w/ reflexes; Complete Time: 16:31 kb 12/21 17:01 Order name: CT Abd/Pelvis - IV Contrast Only; Complete Time: 19:41 kb 12/21 15:41 Order name: IV Saline Lock; Complete Time: 16:13 kb 12/21 15:41 Order name: Labs collected and sent; Complete Time: 16:13 kb Administered Medications: 17:25 Drug: Ketorolac IVP 15 mg IVP once Route: IVP; Site: right antecubital; db 17:25 Drug: Ondansetron IVP 4 mg IVP once; over 2 minutes Route: IVP; Site: right antecubital;db 17:25 Drug: NS 0.9% IV 1000 ml IV at 1000 ml once Route: IV; Rate: 1000 ml; Site: right db antecubital; Disposition: 16:00 I was immediately available on-site in the Emergency Department for consultation in the ms3 care of the patient. Disposition Summary: 12/21/23 19:42 Discharge Ordered Notes: Location: Home kb Condition: Stable kb Diagnosis - Abdominal pain, Generalized kb Followup: kb - With: Emergency Department - When: As needed - Reason: Worsening of condition Followup: kb - With: Private Physician - When: 2 - 3 days - Reason: Recheck today's complaints, Continuance of care, Re-evaluation by your physician Discharge Instructions: - Discharge Summary Sheet kb - Abdominal Pain, Adult, [id number] kb Forms: - Medication Reconciliation Form kb - Thank You Letter kb - Antibiotic Education kb - Prescription Opioid Use kb - Patient Portal Instructions kb - Leadership Thank You Letter kb Signatures: Dispatcher [employer] Ansley King, EASEMENT WORKER-C EASEMENT WORKER-Lorena Mckeon RN RN Maycol Dc, DO DO ms3 Eugenia Burkett RN RN Nidia Recinos RN RN db
--- NOTE | 2023-12-21 19:42 | ER ---
Nurse's Notes [facility] Name: Lucy hCarles Age: 23 yrs Sex: Female : 2000 Arrival Date: 12/21/2023 Time: 15:33 Bed 13 Private MD: Diagnosis: Abdominal pain, Generalized Presentation: 12/21 15:44 Chief complaint: Patient states: Diffuse abdominal pain, worse in upper abdomen, ph vomiting in am and pm, nausea when eating, vaginal spotting off and on, currently on depo shot, last received 11 weeks ago. Coronavirus screen: Vaccine status: Patient reports being unvaccinated. Ebola Screen: No symptoms or risks identified at this time. Initial Sepsis Screen: Does the patient meet any 2 criteria? No. Patient's initial sepsis screen is negative. Does the patient have a suspected source of infection? No. Patient's initial sepsis screen is negative. Risk Assessment: Do you want to hurt yourself or someone else? Patient reports no desire to harm self or others. Onset of symptoms was December 21, 2023. 15:44 Method Of Arrival: Ambulatory ph 15:44 Acuity: KERRI 3 ph Triage Assessment: 15:47 General: Appears in no apparent distress. Behavior is calm, cooperative. Pain: ph Complains of pain in abdomen. GI: Reports nausea, vomiting. Historical: - Allergies: 15:46 No Known Allergies; ph - PMHx: 15:46 None; ph - Immunization history:: Adult Immunizations up to date. - Social history:: Smoking status: Reported history of juuling and/or vaping. Screenin:14 [facility] ED Fall Risk Assessment (Adult) History of falling in the last 3 months, db including since admission No falls in past 3 months (0 pts) Confusion or Disorientation No (0 pts) Intoxicated or Sedated No (0 pts) Impaired Gait No (0 pts) Mobility Assist Device Used No (0 pt) Altered Elimination No (0 pt) Score/Fall Risk Level 0 - 2 = Low Risk Oriented to surroundings, Maintained a safe environment. Abuse screen: Denies threats or abuse. Denies injuries from another. Nutritional screening: No deficits noted. Tuberculosis screening: No symptoms or risk factors identified. Assessment: 15:56 Reassessment: Patient appears in no apparent distress at this time. Patient and/or db family updated on plan of care and expected duration. Pain level reassessed. Patient is alert, oriented x 3, equal unlabored respirations, skin warm/dry/pink. ABD PAIN AND IRREGULAR PERIOD SYMPTOMS X 1 WEEK. General: Appears in no apparent distress. comfortable, Behavior is calm, cooperative. Neuro: Level of Consciousness is awake, alert, obeys commands, Oriented to person, place, time, situation. 19:00 General: Appears in no apparent distress. comfortable, Behavior is calm, cooperative. jw7 Pain: Complains of pain in abdomen Pain does not radiate. Pain currently is 3 out of 10 on a pain scale. Quality of pain is described as aching, crampy, Pain began 2-3 days ago. Is intermittent, Alleviated by medications. Neuro: Level of Consciousness is awake, alert, obeys commands, Oriented to person, place, time, situation. Cardiovascular: Capillary refill < 3 seconds Patient's skin is warm and dry. Respiratory: Airway is patent Trachea midline Respiratory effort is even, unlabored, Respiratory pattern is regular, symmetrical. 19:00 GI: Abdomen is round non-distended. : No deficits noted. No signs and/or symptoms jw7 were reported regarding the genitourinary system. EENT: No deficits noted. No signs and/or symptoms were reported regarding the EENT system. Derm: Skin is intact, is healthy with good turgor, Skin is dry, Skin is normal, Skin temperature is warm. Musculoskeletal: Circulation, motion, and sensation intact. Range of motion: intact in all extremities. Vital Signs: 15:44 BP 114 / 80; Pulse 60; Resp 18; Temp 97.7; Pulse Ox 99% on R/A; Weight 68.04 kg; Height ph 5 ft. 0 in. ; 16:00 BP 109 / 65; Pulse 63; Resp 18; Pulse Ox 99% on R/A; db 17:00 BP 125 / 92; Pulse 69; Resp 18; Pulse Ox 100% on R/A; db 17:40 BP 127 / 55; Pulse 71; Resp 18; Pulse Ox 100% on R/A; db 18:30 BP 104 / 55; Pulse 76; Resp 16; Pulse Ox 100% on R/A; db 19:00 BP 112 / 94; Pulse 68; Resp 17 S; Pulse Ox 99% on R/A; jw7 19:58 BP 116 / 84; Pulse 78; Resp 18; Pulse Ox 100% on R/A; mb9 15:44 Body Mass Index 29.29 (68.04 kg, 152.4 cm) ph ED Course: 15:34 Patient arrived in ED. rg4 15:36 Ansley Martin FNP-C is [facility]. kb 15:36 Maycol Dc DO is Attending Physician. kb 15:46 Triage completed. ph 15:47 Arm band placed on Patient placed in an exam room, on a stretcher. ph 15:56 Nidia Reece, RN is Primary Nurse. db 16:06 Initial lab(s) drawn, Urine collected: clean catch specimen, clear. Inserted saline db lock: 20 gauge in right antecubital area, using aseptic technique. Blood collected. 16:14 Patient has correct armband on for positive identification. Bed in low position. Call db light in reach. Side rails up X 1. Pulse ox on. NIBP on. 18:18 CT Abd/Pelvis - IV Contrast Only In Process Unspecified. EDMS 19:58 No provider procedures requiring assistance completed. IV discontinued, intact, mb9 bleeding controlled, No redness/swelling at site. Pressure dressing applied. Administered Medications: 17:25 Drug: Ketorolac IVP 15 mg IVP once Route: IVP; Site: right antecubital; db 17:25 Drug: Ondansetron IVP 4 mg IVP once; over 2 minutes Route: IVP; Site: right antecubital;db 17:25 Drug: NS 0.9% IV 1000 ml IV at 1000 ml once Route: IV; Rate: 1000 ml; Site: right db antecubital; Medication: 16:14 VIS not applicable for this client. db Outcome: 19:42 Discharge ordered by MD. kb 19:58 Discharged to home ambulatory, mb9 19:58 Condition: stable 19:58 Discharge instructions given to patient, Instructed on discharge instructions, follow up and referral plans. 19:58 Patient left the ED. [email or web address] Signatures: Dispatcher [employer] EDMS Ansley Martin, AZAR SILVER-Lorena Mckeon, RN RN eJrilyn Oglesby rg4 Eugenia Burkett RN RN jw7 Nidia Reece, RN RN Kimmie Carmen, RN RN mb9
[2023-12-21 20:08] VITALS: TEMP 97.7
[2023-12-21 20:30] VITALS: BP 116/84; O2SAT 100
== END ==
LOC: ER 15:33
DX: R10.84 Generalized abdominal pain (principal); R11.2 Nausea with vomiting, unspecified; N93.9 Abnormal uterine and vaginal bleeding, unspecified
CPT/HCPCS: 85025; 81001; 36415; 81025; 83690; 80053; 74177; Q9967; J2405; J7030

== ENCOUNTER 2024-08-30 09:27 | Emergency (ER) | payer OTHER ==
[2024-08-30 10:12] LABS: Specific Gravity 1.023 (1.005-1.030)
[2024-08-30 10:13] LABS: Specific Gravity 1.023 (1.005-1.030); Urine Bacteria None Seen /HPF (<20); Urine Bilirubin NEGATIVE (Negative); Urine Blood Negative (Negative); Urine Clarity Extremely Turbid (Clear); Urine Color Light-Yellow (Yellow); Urine Culture Reflex Order NOT NEEDED; Urine Glucose NEGATIVE (Negative); Urine Ketones NEGATIVE (Negative); Urine Microscopic Reflex YN ORDER UMIC; Urine Mucus Slight /HPF (None Seen); Urine Nitrite NEGATIVE (Negative); Urine Protein NEGATIVE (Negative); Urine RBC <5 /HPF (None Seen); Urine Urobilinogen Normal (Normal); Urine WBC <5 /HPF (<5); Urine pH 6.5 (5.0-7.0)
[2024-08-30] MEDS ORDERED: ONDANSETRON 4 MG/2 ML VIAL ONE (10:13)
[2024-08-30] MEDS ORDERED: NA CHLORIDE 0.9% 500 ML ONE (10:14)
[2024-08-30 10:35] LABS: Absolute Eosinophils 0.1 K/uL (0-0.5); Absolute Lymphocytes (CBC) 1.7 K/uL (0.7-4.9); Absolute Monocytes 0.4 K/uL (0.1-1.3); Absolute Neutrophil 2.9 K/uL (1.8-8.0); Basophils % 0.6 % (0-1.3); Eosinophils % 1.2 % (0-4.4); Hemoglobin 14.2 g/dL (12.0-15.0); Lymphocytes % 34.1 % (15.3-44.8); MCH 29.9 pg (27.0-35.0); MCV 90.7 fL (80-100); MPV 8.3 fL (7.6-11.3); Neutrophils % 57.1 % (41.7-73.7); Platelets 210 thou/uL (152-406); RBC Red Blood Cell Count 4.75 M/uL (3.86-4.86); Red Cell Distribution Width 13.2 % (12.1-15.2)
--- NOTE | 2024-08-30 11:18 | RAD REPORT ---
EXAMINATION: CT Abdomen Pelvis W Contrast CLINICAL INDICATION: Female, 23 years old. vomiting;Abd pain TECHNIQUE: CT abdomen and pelvis was performed, after the administration of IV contrast, as per [facility] protocol. Axial, sagittal and coronal reconstructions were obtained. One or more of the following dose reduction techniques were used: Automated exposure control, adjustment of the mA and k V according to patient size, and iterative reconstruction. Unless otherwise specified, incidental findings do not require dedicated imaging follow-up. COMPARISON: 12/21/2023 FINDINGS: LOWER CHEST: The visualized lung bases are clear. LIVER: Normal in size and contour. No focal lesion. BILIARY SYSTEM: No suspicious abnormalities. SPLEEN: Normal size. No focal lesion. PANCREAS: No mass, ductal dilation, or lakesha-pancreatic fluid. ADRENALS: Normal; no mass. KIDNEYS: Normal size and contour. No hydronephrosis. 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 URINARY BLADDER: Unremarkable. GASTROINTESTINAL TRACT: No evidence of free air, significant intra-abdominal free fluid, bowel obstru ction or abscess. APPENDIX: Normal appendix. LYMPH NODES: No lymphadenopathy. MUSCULOSKELETAL: No acute or suspicious osseous abnormality. ADDITIONAL FINDINGS: None. IMPRESSION: No acute or concerning abnormalities seen in the abdomen or pelvis.
[2024-08-30 11:36] LABS: ALT/SGPT 16 U/L (13-56); Albumin 3.5 g/dL (3.4-5.0); Albumin/Globulin Ratio 1.4 (1.1-1.8); Alkaline Phosphatase 54 U/L (45-117); Anion Gap 8.2 mEq/L (5.0-15.0); BUN Blood Urea Nitrogen 8 mg/dL (7-18); Bicarbonate 25 mEq/L (21-32); Bilirubin Total 0.5 mg/dL (0.2-1.0); Globulin 2.5 g/dL (2.3-3.5); Glomerular Filtration Rate 103 ml/min (=/>90); Glucose Level 92 mg/dL (74-106); Lipase 146 U/L (13-75); Potassium 4.2 mEq/L (3.5-5.1); Sodium Level 141 mEq/L (136-145)
[2024-08-30 11:38] LABS: AST/SGOT < 10 U/L (15-37)
--- NOTE | 2024-08-30 11:39 | ER ---
Nurse's Notes [facility] Name: Lucy Charles Age: 23 yrs Sex: Female : 2000 Arrival Date: 08/30/2024 Time: 09:27 Bed 16 Private MD: Diagnosis: Abdominal pain, unspecified;Nausea with vomiting, unspecified;Diarrhea, unspecified Presentation: 08/30 09:47 Chief complaint: Patient states: entire stomach hurting X 4 days, + vomiting and iw diarrhea. Coronavirus screen: At this time, the client does not indicate any symptoms associated with coronavirus-19. Ebola Screen: No symptoms or risks identified at this time. Initial Sepsis Screen: Does the patient meet any 2 criteria? No. Patient's initial sepsis screen is negative. Does the patient have a suspected source of infection? No. Patient's initial sepsis screen is negative. Risk Assessment: Do you want to hurt yourself or someone else? Patient reports no desire to harm self or others. Onset of symptoms was August 28, 2024. 09:47 Method Of Arrival: Ambulatory iw 09:47 Acuity: KERRI 3 iw Historical: - Allergies: 09:48 No Known Allergies; iw - Home Meds: 10:09 None [Active]; rs5 - PMHx: 10:09 None; rs5 - PSHx: 10:09 None; rs5 - Immunization history:: Adult Immunizations up to date. - Infectious Disease History:: Denies. - Family history:: not pertinent. - Hospitalizations: : No recent hospitalization is reported. - Social history:: Smoking status: Patient denies any tobacco usage or history of. Screenin:45 [facility] ED Fall Risk Assessment (Adult) History of falling in the last 3 months, rs5 including since admission No falls in past 3 months (0 pts) Confusion or Disorientation No (0 pts) Intoxicated or Sedated No (0 pts) Impaired Gait No (0 pts) Mobility Assist Device Used No (0 pt) Altered Elimination No (0 pt) Score/Fall Risk Level 0 - 2 = Low Risk Oriented to surroundings, Maintained a safe environment. Abuse screen: Denies threats or abuse. Nutritional screening: No deficits noted. Tuberculosis screening: No symptoms or risk factors identified. Assessment: 09:45 General: Appears in no apparent distress. uncomfortable, Behavior is calm, cooperative. rs5 09:45 Pain: Complains of pain in abdomen Pain currently is 5 out of 10 on a pain scale. rs5 Quality of pain is described as aching, Is continuous. Neuro: Level of Consciousness is awake, alert, obeys commands, Oriented to person, place, time, situation. Cardiovascular: Patient's skin is warm and dry. Respiratory: Airway is patent Respiratory effort is even, unlabored, Respiratory pattern is regular, symmetrical. GI: Abdomen is round non-distended, Bowel sounds present X 4 quads. Abd is soft and non tender X 4 quads. Reports nausea. : No signs and/or symptoms were reported regarding the genitourinary system. EENT: No signs and/or symptoms were reported regarding the EENT system. Derm: Skin is intact, Skin is pink, warm \T\ dry. Musculoskeletal: Range of motion: intact in all extremities. 10:00 Reassessment: provider notified pt is experiencing pain . rs5 11:01 Reassessment: Patient and/or family updated on plan of care and expected duration. Pain rs5 level reassessed. Patient is alert, oriented x 3, equal unlabored respirations, skin warm/dry/pink. 12:11 Reassessment: Patient and/or family updated on plan of care and expected duration. Pain rs5 level reassessed. Patient is alert, oriented x 3, equal unlabored respirations, skin warm/dry/pink. Vital Signs: 09:48 BP 108 / 63; Pulse 65; Resp 16; Pulse Ox 100% on R/A; rs5 12:12 BP 110 / 66; Pulse 70; Resp 17; Pulse Ox 99% on R/A; rs5 ED Course: 09:29 Patient arrived in ED. mr 09:33 Prabhjot Rebolledo MD is Attending Physician. rn 09:45 Patient has correct armband on for positive identification. Placed in gown. Bed in low rs5 position. Call light in reach. Side rails up X2. 09:45 No provider procedures requiring assistance completed. rs5 09:48 Triage completed. iw 09:51 Inserted saline lock: 22 gauge in left antecubital area, using aseptic technique. Blood rs5 collected. Flushed with 10 mL NS. 10:09 Arm band placed on. rs5 10:36 CT Abd/Pelvis - IV Contrast Only In Process Unspecified. EDMS 11:04 Kenneth Rojo, RN is Primary Nurse. rs5 12:12 IV discontinued, intact, bleeding controlled, No redness/swelling at site. Pressure rs5 dressing applied. Administered Medications: 10:30 Drug: Ondansetron IVP 4 mg IVP once; over 2 minutes Route: IVP; Site: left antecubital; rs5 11:01 Follow up: Response: No adverse reaction rs5 10:30 Drug: NS 0.9% IV 500 ml 500 ml IV at 1 bolus once; to be given as a bolus over 30 rs5 minutes Volume: 500 ml; Route: IV; Rate: 1 bolus; Site: left antecubital; 11:10 Follow up: Response: No adverse reaction; IV Status: Completed infusion; IV Intake: rs5 500ml Medication: 09:45 VIS not applicable for this client. rs5 Intake: 11:10 IV: 500ml; Total: 500ml. rs5 Outcome: 11:38 Discharge ordered by MD. rn 12:12 Discharged to home ambulatory, rs5 12:12 Condition: stable 12:12 Discharge instructions given to patient, family, Instructed on discharge instructions, follow up and referral plans. medication usage, Demonstrated understanding of instructions, follow-up care, medications, Prescriptions given X 1, 12:15 Patient left the ED. rs5 Signatures: Dispatcher [employer] EDOH Kimmie Pacheco, Reg Reg mr Adela Cruz, RN RN iw Prabhjot Rebolledo MD MD rn Sotelo, Ricky, JOHN RN rs5 Corrections: (The following items were deleted from the chart) 10:09 09:48 BP 108 / 63; Resp 16bpm; iw rs5 12:10 12:09 General: Appears in no apparent distress. uncomfortable, Behavior is calm, rs5 cooperative, rs5
--- NOTE | 2024-08-30 11:39 | EDPHYS ---
Physician Documentation [facility] Name: Lucy Charles Age: 23 yrs Sex: Female : 2000 Arrival Date: 08/30/2024 Time: 09:27 Bed 16 Private MD: ED Physician Prabhjot Rebolledo HPI: 08/30 10:14 This 23 yrs old Female presents to ER via Ambulatory with complaints of Abdominal Pain, rn Vomiting/Diarrhea. 10:14 The patient presents to the emergency department with nausea, vomiting, diarrhea. rn Onset: The symptoms/episode began/occurred 4 day(s) ago. Possible causes: unknown. The symptoms are aggravated by nothing. The symptoms are alleviated by nothing. Severity of symptoms: At their worst the symptoms were mild in the emergency department the symptoms are unchanged. The patient has not experienced similar symptoms in the past. Patient reports 4 days of nausea/vomiting/diarrhea, equal vomiting and diarrhea, no blood. No fever or chills. States entire family was sick with upper respiratory infection but nobody with GI symptoms. Reports diffuse abdominal pain. Already seen at [facility] ER but no imaging obtained or blood obtained. Had negative test at [facility] ER and at home but patient does not believe results.. Historical: - Allergies: 09:48 No Known Allergies; iw - Home Meds: 10:09 None [Active]; rs5 - PMHx: 10:09 None; rs5 - PSHx: 10:09 None; rs5 - Immunization history:: Adult Immunizations up to date. - Infectious Disease History:: Denies. - Family history:: not pertinent. - Hospitalizations: : No recent hospitalization is reported. - Social history:: Smoking status: Patient denies any tobacco usage or history of. ROS: 10:14 Constitutional: Negative for fever, chills, and weight loss, Cardiovascular: Negative rn for chest pain, palpitations, and edema, Respiratory: Negative for shortness of breath, cough, wheezing, and pleuritic chest pain, Abdomen/GI: Positive for abdominal pain with nausea/vomiting/diarrhea Back: Negative for injury and pain, : Negative for injury, bleeding, discharge, and swelling, MS/Extremity: Negative for injury and deformity, Neuro: Negative for headache, weakness, numbness, tingling, and seizure, Exam: 10:14 Constitutional: This is a well developed, well nourished patient who is awake, alert, rn and in no acute distress. ENT: Dry mucous membranes Cardiovascular: Regular rate and rhythm. No pulse deficits. Abdomen/GI: Soft, no focal tenderness or rebound. Mild tenderness in bilateral lower quadrants Neuro: Awake and alert, GCS 15 Vital Signs: 09:48 BP 108 / 63; Pulse 65; Resp 16; Pulse Ox 100% on R/A; rs5 12:12 BP 110 / 66; Pulse 70; Resp 17; Pulse Ox 99% on R/A; rs5 MDM: 09:33 Medical Screening Exam initiated rn 11:36 Differential diagnosis: Nonspecific abd pain, pancreatitis, appendicitis, rn diverticulitis, viral gastroenteritis, gastroenteritis. Data reviewed: vital signs, nurses notes, lab test result(s), radiologic studies, CT scan, and as a result, I will discharge patient. Counseling: I had a detailed discussion with the patient and/or guardian regarding the historical points, exam findings, and any diagnostic results supporting the discharge/admit diagnosis, lab results, radiology results, the need for outpatient follow up, to return to the emergency department if symptoms worsen or persist or if there are any questions or concerns that arise at home. Special discussion: Based on the patient's Hx, exam, and Dx evaluation, there is no indication for emergent surgery or inpatient Tx. It is understood by the patient/guardian that if the Sx's persist or worsen they need to return immediately for re-evaluation. I discussed with the patient/guardian in detail that at this point there is no indication for admission to the hospital. It is understood, however, that if the symptoms persist or worsen the patient needs to return immediately for re-evaluation. ED course: No acute findings and workup, will discharge home with as needed Zofran and given return precautions.. 08/30 09:50 Order name: CBC with Diff; Complete Time: 11:33 rn 08/30 09:50 Order name: CMP; Complete Time: 11:40 rn 08/30 09:50 Order name: Lipase; Complete Time: 11:40 rn 08/30 09:50 Order name: Test, Urine; Complete Time: 11:33 rn 08/30 09:50 Order name: Urinalysis w/ reflexes; Complete Time: 11:33 rn 08/30 09:51 Order name: CT Abd/Pelvis - IV Contrast Only; Complete Time: 11:33 rn 08/30 09:50 Order name: IV Saline Lock; Complete Time: 10:30 rn 08/30 09:50 Order name: Labs collected and sent; Complete Time: 10:30 rn 08/30 10:50 Order name: Labs - recollect needed: recollect green top; Complete Time: 11:59 bd Administered Medications: 10:30 Drug: Ondansetron IVP 4 mg IVP once; over 2 minutes Route: IVP; Site: left antecubital; rs5 11:01 Follow up: Response: No adverse reaction rs5 10:30 Drug: NS 0.9% IV 500 ml 500 ml IV at 1 bolus once; to be given as a bolus over 30 rs5 minutes Volume: 500 ml; Route: IV; Rate: 1 bolus; Site: left antecubital; 11:10 Follow up: Response: No adverse reaction; IV Status: Completed infusion; IV Intake: rs5 500ml Disposition Summary: 08/30/24 11:38 Discharge Ordered Notes: Location: Home rn Problem: new rn Symptoms: have improved rn Condition: Stable rn Diagnosis - Abdominal pain, unspecified rn - Nausea with vomiting, unspecified rn - Diarrhea, unspecified rn Followup: rn - With: Private Physician - When: As needed - Reason: Recheck today's complaints, Re-evaluation by your physician Discharge Instructions: - Discharge Summary Sheet rn - Abdominal Pain, Adult rn - Diarrhea, Adult rn - Nausea and Vomiting, Adult rn Forms: - Medication Reconciliation Form rn - Antibiotic jewelry internship - Prescription Opioid Use rn - Patient Portal Instructions rn - Leadership Thank You Letter rn Prescriptions: - ondansetron 4 mg Oral Tablet,disintegrating - take 1 tablet ORAL route every 8 hours As needed; 12 tablet; Refills: 0, rn Product Selection Permitted Signatures: Dispatcher [employer] Kira Fuller Irene, RN RN iw Nieto, Roman, MD MD rn Sotelo, Ricky, RN RN rs5
[2024-08-30 17:10] VITALS: BP 110/66; O2SAT 99
== END 2024-08-30 12:15 | disposition home or self-care (01) ==
LOC: ER 09:27
DX: R10.32 Left lower quadrant pain (principal); R11.2 Nausea with vomiting, unspecified; R19.7 Diarrhea, unspecified; R10.31 Right lower quadrant pain
CPT/HCPCS: 96361; 85025; 81001; 36415; 81025; 83690; 80053; 74177; 96374; 99284; Q9967; J2405; J7040